=== PATIENT | male | born 1960 ===

== ENCOUNTER 2023-04-07 19:33 | Inpatient (IN) | payer OTHER, SELFPAY ==
--- NOTE | ~2023-04-07 | US_ITS ---
Ultrasound-guided aspiration and core biopsy of one of the lesions in the left lobe of the liver INDICATIONS: Sepsis with multiple small lesions within the liver After informed written consent was obtained an official timeout was performed immediately prior to the procedure. I was personally responsible for the administration of moderate sedation services, all requirements were followed, an independent trained observer was utilized. PROCEDURE: Initial ultrasound surveillance of the liver demonstrates multiple small lesions of mixed echogenicity within the liver measuring less than 2 cm in diameter. The skin was prepped and draped in usual fashion overlying the subxiphoid region. 1% Xylocaine was used for local local anesthetic. Under ultrasound guidance a 18-gauge Temno core biopsy needle was placed into the left lobe of the liver. One of the lesion was biopsied utilizing a core biopsy needle. 3 specimens were obtained. A needle aspirate was obtained and sent for Gram stain, culture and sensitivity. The needle was removed and manual pressure held. The patient tolerated the procedure well. US/US biopsy liver IMPRESSION: ultrasound-guided biopsy of the liver
--- NOTE | ~2023-04-07 | CT_ITS ---
EXAMINATION: CT ABDOMEN AND PELVIS WITH CONTRAST CLINICAL INFORMATION: Pain. Crohn's disease. Concern for colorectal fistula. COMPARISON: None available. TECHNIQUE: Multidetector volumetric images were obtained from the superior aspect of the liver through the pubic symphysis following administration 85 mL of Omnipaque 350 intravenous contrast. Sagittal and coronal reformatted images were obtained on the technologist's workstation. Oral contrast: No This CT examination was performed using dose optimization techniques as appropriate, variously including the following: *Automated exposure control *Adjustment of mA and/or kV according to patient size (this includes techniques or standardized protocols for targeted exams where dose is matched to indication/reason for exam; i.e. extremities or head) *Use of iterative reconstruction technique DLP: 778 mGy-cm FINDINGS: LUNG BASES: The visualized lung bases are unremarkable. LIVER, GALLBLADDER, AND BILIARY TREE: There are scattered nonspecific hepatic hypodensities measuring up to 2 cm right lobe of the liver. The gallbladder is unremarkable with no evidence of radiopaque gallstones, gallbladder wall thickening, or obvious pericholecystic inflammatory changes. PANCREAS: Unremarkable. SPLEEN: Unremarkable. ADRENAL GLANDS: Unremarkable. KIDNEYS AND URETERS: The kidneys are normal in size, shape, and attenuation. No hydronephrosis, hydroureter, or calculi seen. No perinephric stranding. BLADDER: There is a small right sided bladder diverticulum. GASTROINTESTINAL TRACT: There is diffuse diverticulosis without evidence for diverticulitis. There is no evidence for colorectal fistula. ABDOMINAL WALL: No significant hernia is appreciated. LYMPH NODES: Normal. VASCULAR: Unremarkable. PELVIC VISCERA: Unremarkable. OSSEOUS STRUCTURES: There is mild to moderate diffuse thoracolumbar CT/CT abdomen pelvis w IV con disc degenerative change. IMPRESSION: 1. Diffuse diverticulosis without diverticulitis. 2. Multiple nonspecific hepatic hypodensities are not simple cysts. These may represent multiple hemangiomas. Recommend ultrasound assessment. No other significant abnormality identified. Fleischner guidelines were followed.
--- NOTE | ~2023-04-07 | XR_ITS ---
EXAMINATION: XR CHEST CLINICAL INFORMATION: Pneumonia. COMPARISON: None available. TECHNIQUE: Frontal view of the chest was obtained. FINDINGS: Prominent cardiomediastinal silhouette. Diffuse interstitial thickening. No focal airspace opacity, pleural effusion or pneumothorax. No acute osseous findings. The visualized upper abdomen is within normal limits. XR/XR chest 1V IMPRESSION: Nonspecific interstitial prominence that could be seen with small airways disease or atypical/viral infections. Indeterminate prominence of the cardiomediastinal silhouette, if cardiomegaly or pericardial effusion is suspected, consider correlation with bedside echocardiogram.
--- NOTE | ~2023-04-07 | US_ITS ---
EXAMINATION: US ABDOMEN LIMITED CLINICAL INFORMATION: Fever. Abnormal CT scan liver.. COMPARISON: 04/08/2023 CT scan TECHNIQUE: Real-time imaging of the right upper quadrant abdominal viscera. FINDINGS: PANCREAS: Much of the pancreas is obscured overlying bowel gas. Visualized portions of pancreas is unremarkable LIVER: Multiple complex cystic regions are seen throughout the liver the largest measures 1.8 cm in size. More of these regions were identified on the CT scan than are able to be appreciated on the ultrasound. There is background increased hepatic echotexture. No biliary ductal dilatation. GALLBLADDER: Normal. The gallbladder is physiologically distended without evidence of stones, sludge, polyps, wall thickening or pericholecystic fluid. COMMON BILE DUCT: Normal in caliber measuring 0.3 cm in diameter. RIGHT KIDNEY: Normal. No hydronephrosis. No renal calculi or focal parenchymal lesions. The kidney measures 13.5 cm in maximum dimension. FREE FLUID: None. US/US abdomen limited IMPRESSION: Multiple complex cystic regions are seen throughout the liver. Etiology of these are uncertain. More numerous were seen on the CT scan than are able to be appreciated on the ultrasound. Background increased hepatic echotexture suggesting a component of fatty infiltration.
[2023-04-07 20:03] VITALS: BP 146/63; PULSE 84; RESP 18; TEMP 38.2; O2SAT 95; BMI 34.5
--- NOTE | 2023-04-07 20:09 | ED_ITS ---
HPI - General Adult General Chief complaint: Fever Stated complaint: fever for 5 days now Time Seen by Provider: 04/07/23 20:50 Source: patient Mode of arrival: ambulatory Limitations: no limitations History of Present Illness HPI narrative: Patient history of diverticulitis, Crohn disease and hemorrhoids and history of mitral valve prolapse and history of endocarditis years ago from tooth infection comes here for rectal pain with pus discharge and fever for last 5 days. Patient was seen by GI plan to do sigmoidoscopy next week initially patient has pus discharge without any blood from resumed hemorrhoids pus amount has decreased now but still is having the fever on arrival patient temperature was 100.8 was 101.5 at home. Patient also complaining of left lower abdomen pain for last few days Related Data Home Medications Medication Instructions Recorded Confirmed atorvastatin 80 mg tablet 80 mg PO BEDTIME 04/08/23 04/08/23 ezetimibe 10 mg tablet 10 mg PO DAILY 04/08/23 04/08/23 finasteride 5 mg tablet 5 mg PO DAILY 04/08/23 04/08/23 hydrochlorothiazide 12.5 mg tablet 12.5 mg PO DAILY 04/08/23 04/08/23 meloxicam 15 mg tablet 15 mg PO DAILY PRN Back Pain 04/08/23 04/08/23 pantoprazole 40 mg tablet,delayed 40 mg PO DAILY 04/08/23 04/08/23 release valsartan 320 mg tablet 320 mg PO DAILY 04/08/23 04/08/23 Allergies Allergy/AdvReac Type Severity Reaction Status Date / Time Sulfa (Sulfonamide Allergy Rash Verified 04/07/23 20:03 Antibiotics) Review of Systems Review of Systems: Yes all other systems are reviewed and are negative [facility] Past Medical History Medical History (Updated 04/08/23 @ 06:46 by Ginger Cota MD) Crohn's disease Diabetes Hypertension Social History Social History Household Members: Spouse Housing: House Alcohol intake: current Alcohol intake frequency: a few times a month Patient Tobacco Use Status: Never used Tobacco service: No Physical Exam ED Vital Signs: Vital Signs - 24 hr 04/08/23 03:39 Temperature 100.1 F Pulse Rate 88 Respiratory Rate 18 Blood Pressure 137/66 Pulse Oximetry 96 Oxygen Delivery Method Room Air BMI result Body Mass Index 34.5 Appearance: Alert. Oriented X3. No acute distress. Eyes: No pallor/icterus ENT: Pharynx normal. Oral Mucosa moist Neck: Normal inspection. Neck supple. CVS: Normal heart rate and rhythm. Pulses normal. Respiratory: No respiratory distress. Equal air entry bilateral, no wheezing/rales/rhonchi Abdomen: Soft , deep tenderness left lower quadrant Bowel sounds are present, no mass palpable, no CVA tenderness rectal: Small hemorrhoid, status post surgical changes no pus /blood Skin: Skin warm and dry. Normal skin color. Normal skin turgor. Extremities: No lower extremity edema. No calf tenderness Neuro: Oriented X 3. No motor deficit. Course Course Course Narrative: RME: 62 yold male presents to the ED for recurrent fever for a couple of days. patient concerned due to history of endocarditits. labs, UA, and chest xray ordered Medications Administered Generic Name Dose Route Start Last Admin Trade Name Freq PRN Reason Stop Dose Admin Acetaminophen 650 mg 04/08/23 04:30 04/08/23 09:07 Acetaminophen 325 Mg Tablet PO 650 mg Q6H PRN Administration Pain, Mild (Pain Scale 1-3) Atorvastatin Calcium 80 mg 04/08/23 21:00 04/08/23 20:58 Atorvastatin Calcium 80 Mg Tablet PO 80 mg BEDTIME ANITA Administration Ezetimibe 10 mg 04/08/23 09:00 04/08/23 09:07 Ezetimibe 10 Mg Tablet PO 10 mg DAILY ANITA Administration Finasteride 5 mg 04/08/23 09:00 04/08/23 09:07 Finasteride 5 Mg Tablet PO 5 mg DAILY ANITA Administration Hydrochlorothiazide 12.5 mg 04/08/23 09:00 04/08/23 09:07 Hydrochlorothiazide 12.5 Mg Tablet PO 12.5 mg DAILY ANITA Administration Protocol Ceftriaxone Sodium 1 gm/ 50 mls @ 100 mls/hr 04/08/23 04:30 04/08/23 07:17 Sodium Chloride IV Infused Q24H ANITA Infusion Omeprazole 20 mg 04/08/23 09:00 04/08/23 09:08 Omeprazole 20 Mg Capsule.Dr PO 20 mg DAILY@0630 ANITA Administration Sodium Chloride 3 ml 04/08/23 08:00 04/08/23 21:00 0.9 % Sodium Chloride Flush 3 Ml Syringe IVFLUSH 3 ml QSHIFT ANITA Administration Valsartan 320 mg 04/08/23 09:00 04/08/23 09:08 Valsartan 320 Mg Tablet PO 320 mg DAILY ANITA Administration Protocol Discontinued Medications Generic Name Dose Route Start Last Admin Trade Name Mary Jane PRN Reason Stop Dose Admin Acetaminophen 975 mg 04/07/23 20:09 04/07/23 20:41 Acetaminophen 325 Mg Tablet PO 04/07/23 20:10 975 mg ONCE ONE Administration Diatrizoate Meglum/Diatrizoate Sod 30 ml 04/07/23 22:46 04/07/23 22:46 Diatrizoate Meglumine, Sodium 30 Ml Solution PO 04/07/23 22:47 30 ml ONCE ONE Administration Piperacillin Sod/Tazobactam 50 mls @ 100 mls/hr 04/07/23 21:50 04/08/23 00:00 Sod 3.375 gm/ Sodium Chloride IV 04/07/23 22:19 Infused ONCE ONE Infusion Sodium Chloride 1,000 mls @ 999 mls/hr 04/07/23 21:51 04/08/23 00:00 Ns IV 04/07/23 22:51 Infused .Q1H1M ONE Infusion Insulin Human Lispro 0 unit 04/08/23 07:30 04/08/23 17:54 Insulin Lispro 100 Unit/Ml 3 Ml Vial SUBCUT Not Given QIDACHS [facility] Protocol Iohexol 100 ml 04/07/23 22:41 04/07/23 22:42 Iohexol 350 Mg/Ml 100 Ml Infus..Btl IV 04/07/23 22:42 Not Given ONCE ONE Medical Decision Making Medical Decision Making [facility] Narrative: Patient with post discharge from the rectum on exam there was no pus discharge 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 Patient signed out to Dr. Riggs pending final CT scan result patient UA showed wbc's nitrite negative bacteria negative not clear -I discussed the CT scan findings with the patient, is possible that the pus drainage that he is seeing is from hemorrhoids. However, she does have a fever 101.8, and a UTI. -patient received today Zosyn and IV fluids -I discussed the patient with Dr. Cota, patient being admitted Differential Diagnosis Differential Diagnoses: The differential diagnosis associated with the presentation includes Rectal abscess/colo rectal fistula Admission/Observation Consideration of admission/observation: Escalation of care including admission/observation considered Consult Healthcare Provider Management of the patient was discussed with: Hospitalist Lab Data MDM Lab Attestation statement: I reviewed the patient's lab results. 04/07/23 20:29 04/07/23 20:29 Labs: Lab Results 04/07/23 04/07/23 04/07/23 Range/Units 20:29 20:29 20:29 WBC 15.0 H (4.8-10.8) X10*3/uL RBC 4.20 L (4.60-5.80) X10*6/uL Hgb 12.8 L (14.0-18.0) g/dl Hct 37.8 L (42.0-52.0) % MCV 90.0 (80.0-98.0) fL MCH 30.5 (27.0-33.0) pg MCHC 33.9 (31.0-36.0) g/dl RDW 11.3 (11.0-16.0) % Plt Count 262 (160-400) X10*3/uL MPV 9.3 L (9.4-12.4) fL Immature Gran % (Auto) 0.3 (0.0-0.4) % Neut % (Auto) 67.0 (45-73) % Lymph % (Auto) 18.4 L (20-40) % [place] % (Auto) 13.1 H (2-11) % Eos % (Auto) 0.9 (0-4) % Baso % (Auto) 0.3 (0-2) % Lymph # (Auto) 2.8 (1.2-4.9) X10*3/uL [place] # (Auto) 2.0 H (0.1-1.2) X10*3/uL Eos # (Auto) 0.1 (0.0-0.4) X10*3/uL Baso # (Auto) 0.0 (0.0-0.2) X10*3/uL Abs Immat Gran (auto) 0.05 H (0.00-0.03) X10*3/uL Absolute Neuts (auto) 10.1 H (2.0-8.3) x10*3/uL Absolute Nucleated RBC 0.000 (0.0-0.012) X10*3/uL Nucleated RBC % (auto) 0.0 (0.0-0.2) /100WBC Smear Tech's Comments VERIFIED ESR 40 H (0-15) MM/HR Sodium 137 (135-145) mmol/L Potassium 3.5 (3.3-5.1) mmol/L Chloride 104 (96-108) mmol/L Carbon Dioxide 23 (22-29) mmol/L Anion Gap 14 (12-20) BUN 20 H (9-16) mg/dL Creatinine 0.74 (0.5-1.4) mg/dL Estim Creat Clear Calc 115.0 Estimated GFR > 60 Random Glucose 126 H (60-115) mg/dL Lactic Acid (0.5-2.0) mmol/L Calcium 9.0 (8.4-10.2) mg/dL Total Bilirubin 1.3 H (0.0-1.0) mg/dL AST 26 (5-37) U/L ALT 33 (0-40) U/L Alkaline Phosphatase 74 (39-117) U/L C-Reactive Protein 6.27 H (< or = 0.50) mg/dL Total Protein 7.5 (6.5-8.0) g/dL Albumin 3.9 (3.5-5.0) g/dL Urine Color Urine Appearance Urine pH (5.0-9.0) Ur Specific [place] (1.005-1.025) Urine Protein (Neg-Trace) mg/dL Urine Glucose (UA) (Negative) mg/dL Urine Ketones (Negative) mg/dL Urine Blood (Negative) Urine Nitrite (Negative) Ur Leukocyte Esterase (Negative) Urine RBC (0-2) /HPF Urine WBC (0-5) /HPF Ur Squamous Epith Cells (0-2) /HPF Urine Bacteria (None Seen) Hyaline Casts (0-2) /LPF Influenza Type A (PCR) (Negative) Influenza Type B (PCR) (Negative) RSV RNA Qual (PCR) (Negative) SARS-CoV-2 RNA (RT-PCR) (Negative) 04/07/23 04/07/23 04/07/23 Range/Units 20:29 20:29 23:58 WBC (4.8-10.8) X10*3/uL RBC (4.60-5.80) X10*6/uL Hgb (14.0-18.0) g/dl Hct (42.0-52.0) % MCV (80.0-98.0) fL MCH (27.0-33.0) pg MCHC (31.0-36.0) g/dl RDW (11.0-16.0) % Plt Count (160-400) X10*3/uL MPV (9.4-12.4) fL Immature Gran % (Auto) (0.0-0.4) % Neut % (Auto) (45-73) % Lymph % (Auto) (20-40) % [place] % (Auto) (2-11) % Eos % (Auto) (0-4) % Baso % (Auto) (0-2) % Lymph # (Auto) (1.2-4.9) X10*3/uL [place] # (Auto) (0.1-1.2) X10*3/uL Eos # (Auto) (0.0-0.4) X10*3/uL Baso # (Auto) (0.0-0.2) X10*3/uL Abs Immat Gran (auto) (0.00-0.03) X10*3/uL Absolute Neuts (auto) (2.0-8.3) x10*3/uL Absolute Nucleated RBC (0.0-0.012) X10*3/uL Nucleated RBC % (auto) (0.0-0.2) /100WBC Smear Tech's Comments ESR (0-15) MM/HR Sodium (135-145) mmol/L Potassium (3.3-5.1) mmol/L Chloride (96-108) mmol/L Carbon Dioxide (22-29) mmol/L Anion Gap (12-20) BUN (9-16) mg/dL Creatinine (0.5-1.4) mg/dL Estim Creat Clear Calc Estimated GFR Random Glucose (60-115) mg/dL Lactic Acid 0.8 (0.5-2.0) mmol/L Calcium (8.4-10.2) mg/dL Total Bilirubin (0.0-1.0) mg/dL AST (5-37) U/L ALT (0-40) U/L Alkaline Phosphatase (39-117) U/L C-Reactive Protein (< or = 0.50) mg/dL Total Protein (6.5-8.0) g/dL Albumin (3.5-5.0) g/dL Urine Color Yellow Urine Appearance Clear Urine pH 5.5 (5.0-9.0) Ur Specific [place] 1.020 (1.005-1.025) Urine Protein Negative (Neg-Trace) mg/dL Urine Glucose (UA) Negative (Negative) mg/dL Urine Ketones Negative (Negative) mg/dL Urine Blood Small (1+) H (Negative) Urine Nitrite Negative (Negative) Ur Leukocyte Esterase Moderate (2+) H (Negative) Urine RBC 0-2 (0-2) /HPF Urine WBC 21-50 H (0-5) /HPF Ur Squamous Epith Cells 0-2 (0-2) /HPF Urine Bacteria None Seen (None Seen) Hyaline Casts 0-2 (0-2) /LPF Influenza Type A (PCR) NEGATIVE (Negative) Influenza Type B (PCR) NEGATIVE (Negative) RSV RNA Qual (PCR) NEGATIVE (Negative) SARS-CoV-2 RNA (RT-PCR) NEGATIVE (Negative) Critical Care Time Critical Care Time Critical Care Time: Yes Total Critical Care Time: 45 Attestation: I have personally provided critical care time. Time includes review of lab data, radiology results, discussion with consultants, and monitoring for potential decompensation. Intervention performed as documented. Discharge Plan Discharge Clinical Impression: Crohn's disease, Acute UTI, Fever Patient Disposition: Admitted As Inpatient Discharge Date/Time: 04/08/23 20:59
[2023-04-07] MEDS: Acetaminophen 325 MG TABLET 975 MG PO (20:41)
[2023-04-07 20:42] LABS: Basophils Percent Auto 0.3 % (0-2); Eosinophils Absolute Auto 0.1 X10*3/uL (0.0-0.4); Eosinophils Percent Auto 0.9 % (0-4); Hematocrit 37.8 % (42.0-52.0); Hemoglobin 12.8 g/dl (14.0-18.0); Imm Gran Abs Auto 0.05 X10*3/uL (0.00-0.03); Imm Gran Pct Auto 0.3 % (0.0-0.4); Lymphocytes Absolute Auto 2.8 X10*3/uL (1.2-4.9); Lymphocytes Percent Auto 18.4 % (20-40); MANUAL DIFF FLAG SCAN; Mean Corpuscular HGB Conc 33.9 g/dl (31.0-36.0); Mean Corpuscular Hemoglobin 30.5 pg (27.0-33.0); Mean Platelet Volume 9.3 fL (9.4-12.4); Monocytes Percent Auto 13.1 % (2-11); Neutrophils Absolute Auto 10.1 x10*3/uL (2.0-8.3); Platelet Count 262 X10*3/uL (160-400); Red Cell Distribution Width 11.3 % (11.0-16.0); SCAN SMEAR FLAG 1
[2023-04-07 21:04] LABS: Lactic Acid 0.8 mmol/L (0.5-2.0)
[2023-04-07 21:12] LABS: Alanine Aminotransferase 33 U/L (0-40); Albumin Level 3.9 g/dL (3.5-5.0); Alkaline Phosphatase 74 U/L (39-117); Anion Gap 14 (12-20); Aspartate Amino Transferase 26 U/L (5-37); Bilirubin Total 1.3 mg/dL (0.0-1.0); Blood Urea Nitrogen 20 mg/dL (9-16); C Reactive Protein 6.27 mg/dL (< or = 0.50); Carbon Dioxide 23 mmol/L (22-29); Chloride 104 mmol/L (96-108); Estimated Glomerular Filt Rate > 60; Glucose Random 126 mg/dL (60-115); Potassium 3.5 mmol/L (3.3-5.1); Sodium 137 mmol/L (135-145); Total Protein 7.5 g/dL (6.5-8.0)
[2023-04-07 21:34] LABS: Influenza A PCR NEGATIVE (Negative); Influenza B PCR NEGATIVE (Negative); Resp Syncy Virus RNA Qual PCR NEGATIVE (Negative); SARS COV2 PCR INHOUSE NEGATIVE (Negative)
[2023-04-07 21:40] LABS: SLIDE REVIEW VERIFIED
[2023-04-07 21:56] LABS: Erythrocyte Sedimentation Rate 40 MM/HR (0-15)
[2023-04-07 22:00] VITALS: BP 143/72; PULSE 75; RESP 20; TEMP 37.7; O2SAT 96
[2023-04-07] MEDS: Piperacillin Sodium/Tazobactam 3.375 GM in 0.9 % Sodium Chloride 50 ML IV (22:03)
[2023-04-07] MEDS: 0.9 % Sodium Chloride 1,000 ML 999 ML IV (22:04)
[2023-04-07] MEDS: Diatrizoate Meglumine, Sodium 30 ML SOLUTION PO (22:46)
[2023-04-08 00:09] LABS: Appearance Urine Clear; Color Urine Yellow; Glucose Urine UA Negative (Negative); Leukocyte Esterase Urine Moderate (2+) (Negative); Nitrite Urine Negative (Negative); PH 5.5 (5.0-9.0); UMIC TRIGGER UACC YES; Urine Blood Small (1+) (Negative); Urine Ketones Negative (Negative); Urine Protein Negative (Neg-Trace)
[2023-04-08 00:17] LABS: Bacteria Urine None Seen (None Seen); Hyaline Casts Urine 0-2 /LPF (0-2); RBC Urine 0-2 /HPF (0-2); Squamous Epithelial Cell Urine 0-2 /HPF (0-2); UACC Culture Trigger YES; WBC Urine 21-50 /HPF (0-5)
[2023-04-08 03:39] VITALS: BP 137/66; PULSE 88; RESP 18; TEMP 37.8; O2SAT 96
--- NOTE | 2023-04-08 04:36 | PC.NURSE ---
provider into discuss plan of care, pt oob to bathroom, Will continue to monitor.
--- OUTSIDE RECORDS SUMMARY | 2023-04-08 04:39 | XMS_ITS | Continuity of Care Document ---
Author Name Unknown Organization [facility] Address [address] [place] [id number] Care Team Providers Care Chemical Process Equipment Operator Name Role Phone Jovani Doshi MD Primary Care Physician Un available Encounter [facility] Date(s): 01/25/23 - 02/24/23 [facility] [address] [place] [id number] [place] Allergies, Adverse Reactions, Alerts Substance Reaction Severity Status sulfa drugs Hives Active Medications Diovan 160 mg oral tablet 1 tablet, By Mouth, Daily, # 30 tablet, 0 Refills Start Date: 06/22/09 Stop Date: 07/22/09 Status: Ordered finasteride 5 mg oral tablet 1 tablet, By Mouth, Daily, # 30 tablet, 0 Refills Start Date: 06/22/09 Status: Ordered penicillin G potassium [id number] u/50 ml intravenous solution 50 mL, IVPB, Every 4 hours, 0 Refills, 26, days Start Date: 06/24/09 Stop Date: 06/30/09 Status: Ordered Zocor 10 mg oral tablet 1 tablet, By Mouth, Daily at bedtime, # 30 tablet, 0 Refills Start Date: 06/22/09 Stop Date: 07/22/09 Status: Ordered Patient Care team information Care Team Personnel Name: Jovani Doshi MD Position: S Physician - Primary Care Member Role: PCP Care Team Related Persons Name: GENESIS STEINER Address: home [address] [place] [id number]
[2023-04-08] MEDS: cefTRIAXone sodium 1 GM in 0.9 % Sodium Chloride 50 ML IV (04:51)
--- NOTE | 2023-04-08 04:52 | PC.NURSE ---
Pt enters my care. Pt is alert and orientated x4. Pt denied any chest pain with ambulation. VSS- will continue to monitor
--- NOTE | 2023-04-08 06:41 | P.HPHOSP_ITS ---
History of Present Illness Date of Service: 04/08/23 Chief Complaint: fever 62-year-old male past medical history of hypertension, diabetes, Crohn's disease under control comes into the hospital complaints of fever for the past 3 days. Patient reports urinary frequency, he also reports a viscous discharge from his rectum with no pain. Denies any anal intercourse, reports the fever up to 103 for the past 3 days, has no chest pain, no shortness of breath, no cough, no abdominal pain nausea or vomiting, no diarrhea constipation, no lower extremity edema. Reports that he was seen by history I and P on , was told that his discharge is likely from a burst hemorrhoid although he denies having bright red blood per rectum On arrival to the ED patient found to have a temperature of 100.8 Labs are significant for WBC count of 15, hemoglobin of 12.8, hematocrit 37.8, CRP of 6.2 UA positive for leukocyte Estrace, and WBC Patient started on antibiotics and will be admitted for further management Review of Systems Review of Systems: Yes all other systems are reviewed and are negative [facility] Medical History (Updated 04/08/23 @ 06:46 by Ginger Cota MD) Crohn's disease Diabetes Hypertension Social History Alcohol intake: current Alcohol intake frequency: a few times a month Smoked in Last 30 Days: No Use of substances other than those prescribed or required for medical reasons: No Advance Directives: No Advance Directives Information Provided: Yes Meds Allergies Allergy/AdvReac Type Severity Reaction Status Date / Time Sulfa (Sulfonamide Allergy Rash Verified 04/07/23 20:03 Antibiotics) Active Medications: Current Medications Acetaminophen (Acetaminophen 325 Mg Tablet) 650 mg PO Q6H PRN PRN Reason: Pain, Mild (Pain Scale 1-3) Docusate Sodium (Docusate Sodium 100 Mg Capsule) 100 mg PO DAILY PRN PRN Reason: Constipation Ceftriaxone Sodium 1 gm/ (Sodium Chloride) 50 mls @ 100 mls/hr IV Q24H ANITA Last Admin: 04/08/23 04:51 Dose: 100 mls/hr Ondansetron HCl (Ondansetron Hcl 4 Mg/2 Ml Vial) 4 mg IVPUSH Q8H PRN PRN Reason: Nausea and Vomiting Sodium Chloride (0.9 % Sodium Chloride Flush 3 Ml Syringe) 3 ml IVFLUSH QSHIFT [facility] Home Medications Medication Instructions Recorded Confirmed Last Taken Type atorvastatin 80 mg tablet 80 mg PO BEDTIME 04/08/23 04/08/23 04/07/23 History ezetimibe 10 mg tablet 10 mg PO DAILY 04/08/23 04/08/23 04/07/23 History finasteride 5 mg tablet 5 mg PO DAILY 04/08/23 04/08/23 04/07/23 History hydrochlorothiazide 12.5 mg tablet 12.5 mg PO DAILY 04/08/23 04/08/23 04/07/23 History meloxicam 15 mg tablet 15 mg PO DAILY PRN Back Pain 04/08/23 04/08/23 04/07/23 History pantoprazole 40 mg tablet,delayed 40 mg PO DAILY 04/08/23 04/08/23 04/07/23 History release valsartan 320 mg tablet 320 mg PO DAILY 04/08/23 04/08/23 04/07/23 History Physical Exam Vital Signs and Narrative: Vital Signs: Last Vital Signs Temp 100.1 F 04/08/23 03:39 Pulse 88 04/08/23 03:39 Resp 18 04/08/23 03:39 BP 137/66 04/08/23 03:39 Pulse Ox 96 04/08/23 03:39 O2 Del Method Room Air 04/08/23 03:39 BMI result Body Mass Index 34.5 Const: General: cooperative and no acute distress Orientation/consciousness: patient oriented x3 Eyes: General: appearance normal, both eyes and all related structures Pupils: Equal, round and reactive pupils present Resp: Effort & Inspection: normal respiratory effort Auscultation: clear to auscultation bilaterally Cardio: Rate: regular rate Rhythm: regular rhythm GI: Other: Abdomen is soft, nontender rebound or guarding Palpation (GI): Soft to palpation Auscultation: normal bowel sounds Skin: General skin exam: no rashes or lesions noted Neuro: General: patient oriented x3 Cranial nerves: Yes Equal, round and reactive pupils present Cognition (Neuro): normal cognition Extrem: General: Yes normal to inspection and Yes no pedal edema Results Labs 04/07/23 20:29 04/07/23 20:29 Labs: Laboratory Results - last 24 hr 04/07/23 04/07/23 04/07/23 20:29 20:29 20:29 MCV 90.0 MCH 30.5 MCHC 33.9 RDW 11.3 Plt Count 262 MPV 9.3 L Immature Gran % (Auto) 0.3 Neut % (Auto) 67.0 Lymph % (Auto) 18.4 L Thayer % (Auto) 13.1 H Eos % (Auto) 0.9 Baso % (Auto) 0.3 Lymph # (Auto) 2.8 Thayer # (Auto) 2.0 H Eos # (Auto) 0.1 Baso # (Auto) 0.0 Abs Immat Gran (auto) 0.05 H Absolute Neuts (auto) 10.1 H Absolute Nucleated RBC 0.000 Nucleated RBC % (auto) 0.0 Smear Tech's Comments VERIFIED ESR 40 H Anion Gap 14 Estim Creat Clear Calc 115.0 Estimated GFR > 60 Random Glucose 126 H Lactic Acid Calcium 9.0 Total Bilirubin 1.3 H AST 26 ALT 33 Alkaline Phosphatase 74 C-Reactive Protein 6.27 H Total Protein 7.5 Albumin 3.9 Urine Color Urine Appearance Urine pH Ur Specific [place] Urine Protein Urine Glucose (UA) Urine Ketones Urine Blood Urine Nitrite Ur Leukocyte Esterase Urine RBC Urine WBC Ur Squamous Epith Cells Urine Bacteria Hyaline Casts Influenza Type A (PCR) Influenza Type B (PCR) RSV RNA Qual (PCR) SARS-CoV-2 RNA (RT-PCR) 04/07/23 04/07/23 04/07/23 20:29 20:29 23:58 MCV MCH MCHC RDW Plt Count MPV Immature Gran % (Auto) Neut % (Auto) Lymph % (Auto) Thayer % (Auto) Eos % (Auto) Baso % (Auto) Lymph # (Auto) Thayer # (Auto) Eos # (Auto) Baso # (Auto) Abs Immat Gran (auto) Absolute Neuts (auto) Absolute Nucleated RBC Nucleated RBC % (auto) Smear Tech's Comments ESR Anion Gap Estim Creat Clear Calc Estimated GFR Random Glucose Lactic Acid 0.8 Calcium Total Bilirubin AST ALT Alkaline Phosphatase C-Reactive Protein Total Protein Albumin Urine Color Yellow Urine Appearance Clear Urine pH 5.5 Ur Specific [place] 1.020 Urine Protein Negative Urine Glucose (UA) Negative Urine Ketones Negative Urine Blood Small (1+) H Urine Nitrite Negative Ur Leukocyte Esterase Moderate (2+) H Urine RBC 0-2 Urine WBC 21-50 H Ur Squamous Epith Cells 0-2 Urine Bacteria None Seen Hyaline Casts 0-2 Influenza Type A (PCR) NEGATIVE Influenza Type B (PCR) NEGATIVE RSV RNA Qual (PCR) NEGATIVE SARS-CoV-2 RNA (RT-PCR) NEGATIVE Imaging Radiologist's Impressions: Impressions Chest X-Ray 04/07/23 21:00 IMPRESSION: Nonspecific interstitial prominence that could be seen with small airways disease or atypical/viral infections. Indeterminate prominence of the cardiomediastinal silhouette, if cardiomegaly or pericardial effusion is suspected, consider correlation with bedside echocardiogram. Abdomen/Pelvis CT 04/08/23 01:14 disc degenerative change. IMPRESSION: 1. Diffuse diverticulosis without diverticulitis. 2. Multiple nonspecific hepatic hypodensities are not simple cysts. These may represent multiple hemangiomas. Recommend ultrasound assessment. No other significant abnormality identified. Fleischner guidelines were followed. Assessment and Plan (1) Acute UTI: Status: Acute (2) Sepsis: Qualifiers: Sepsis type: sepsis due to unspecified organism Sepsis acute organ dysfunction status: without acute organ dysfunction Qualified Code(s): A41.9 - Sepsis, unspecified organism Status: Acute (3) Crohn's disease: Status: Inactive (4) Rectal discharge: Status: Acute Plan 62-year-old male past medical history of Crohn's disease, hypertension, comes into the hospital with complaints of fever found to have sepsis # sepsis - secondary to UTI - has leukocytosis, febrile - abdominal pelvic CT negative, no respiratory symptoms - will treat with IV antibiotics - follow cultures # acute UTI - positive UA, has urinary frequency - will treat with IV antibiotics - follow cultures # rectal discharge - reports of viscous discharge from the rectum for several days - GI consulted for possible limited sigmoidoscopy given his history of Crohn's disease - given steroids in the ED, at this time will hold off as patient has no flare # GERD - continue PPI # history of hypertension - stable - continue antihypertensives DVT prophylaxis: Early ambulation Time Spent With Patient Time: Total time managing care of this patient today ____ minutes. Quality Stroke Does the patient have a stroke diagnosis?: No VTE Prior VTE?: No VTE Risk Level:: Medical - low VTE Device Contraindication: Treatment Not Indicated VTE Drug Contraindication: Treatment Not Indicated
[2023-04-08 07:16] LABS: Basophils Absolute Auto 0.1 X10*3/uL (0.0-0.2); Basophils Percent Auto 0.3 % (0-2); Eosinophils Percent Auto 0.3 % (0-4); Hematocrit 35.6 % (42.0-52.0); Imm Gran Abs Auto 0.06 X10*3/uL (0.00-0.03); Imm Gran Pct Auto 0.4 % (0.0-0.4); Lymphocytes Absolute Auto 1.7 X10*3/uL (1.2-4.9); Lymphocytes Percent Auto 11.5 % (20-40); MANUAL DIFF FLAG SCAN; Mean Corpuscular HGB Conc 33.7 g/dl (31.0-36.0); Mean Corpuscular Hemoglobin 30.5 pg (27.0-33.0); Mean Corpuscular Volume 90.6 fL (80.0-98.0); Mean Platelet Volume 9.2 fL (9.4-12.4); Monocytes Absolute Auto 2.1 X10*3/uL (0.1-1.2); Monocytes Percent Auto 13.8 % (2-11); Neutrophils Percent Auto 73.7 % (45-73); Platelet Count 237 X10*3/uL (160-400); Red Blood Count 3.93 X10*6/uL (4.60-5.80); Red Cell Distribution Width 11.3 % (11.0-16.0); SCAN SMEAR FLAG 1
[2023-04-08 07:19] VITALS: BP 118/47; PULSE 86; RESP 20; TEMP 37.9; O2SAT 96
[2023-04-08 07:20] LABS: Glucose, Whole Blood 136 mg/dL (60-115)
--- NOTE | 2023-04-08 07:20 | PHA.MEDREC ---
Pharmacy Consult ? Medication Reconciliation Pharmacy has reviewed the medication reconciliation done by RN.
[2023-04-08 08:03] LABS: SLIDE REVIEW VERIFIED
--- NOTE | 2023-04-08 08:18 | PM.EVENT ---
Event Note Date of Service: 04/08/23 Event Note: 62-year-old male past medical history of Crohn's disease, hypertension, comes into the hospital with complaints of fever found to have sepsis Sepsis secondary to UTI leukocytosis, febrile abdominal pelvic CT negative, no respiratory symptoms continue Rocephin follow cultures Rectal discharge. resolved reports of viscous discharge from the rectum for several days GI consulted given steroids in the ED, will hold off any further steroids GERD continue PPI history of hypertension stable continue antihypertensives DVT prophylaxis:? Early ambulation attending Dr. Pretty full code continued hospital stay for tx of sepsis and uti requiring IV abx Time Spent With Patient Time: Total time managing care of this patient today ____ minutes.
[2023-04-08] MEDS: Ezetimibe 10 MG TABLET PO (09:07)
[2023-04-08] MEDS: Finasteride 5 MG TABLET PO (09:07)
[2023-04-08] MEDS: Acetaminophen 325 MG TABLET 650 MG PO (09:07)
[2023-04-08] MEDS: hydroCHLOROthiazide 12.5 MG TABLET PO (09:07)
[2023-04-08] MEDS: 0.9 % Sodium Chloride Flush 3 ML SYRINGE IVFLUSH ×2 (09:08→21:00)
[2023-04-08] MEDS: Omeprazole 20 MG CAPSULE.DR PO (09:08)
[2023-04-08] MEDS: Valsartan 320 MG TABLET PO (09:08)
[2023-04-08 09:10] VITALS: BP 131/50; PULSE 90; RESP 16
[2023-04-08 09:13] LABS: Anion Gap 13 (12-20); Blood Urea Nitrogen 16 mg/dL (9-16); Calcium 8.7 mg/dL (8.4-10.2); Carbon Dioxide 24 mmol/L (22-29); Chloride 103 mmol/L (96-108); Creatinine Clr Calc Pharmacy 96.7; Estimated Glomerular Filt Rate > 60; Glucose Random 133 mg/dL (60-115); Potassium 3.6 mmol/L (3.3-5.1); Sodium 136 mmol/L (135-145)
--- NOTE | 2023-04-08 09:49 | MHC.CM.PN ---
This va underwriter met with patient for CM assessment. No services prior to hospitalization, independent, currently employeed. HCP copy requested. D/C plan home no services- family to transport. CM will follow for any changes in d/c planning needs.
[2023-04-08 12:39] VITALS: TEMP 37.2
[2023-04-08 13:40] LABS: Glucose, Whole Blood 119 mg/dL (60-115)
--- NOTE | 2023-04-08 15:23 | PM.EVENT ---
Event Note Date of Service: 04/08/23 Event Note: GI Consult-Full note dictated History via patient and EMR Imp: 62 yo male with a longstanding history of reported Crohn's colitis that has been stable for decades without any meds presenting with a self-described history of a spontaneous drainage of a perianal abscess last week followed by persistent fevers, leukocytosis, elevated ESR and CRP, apparent UTI, and an abnormal CT of his liver. His PMH is notable for a previous endocarditis and valvular heart disease in relation to a dental procedure about 10 years ago. His exam is unremarkable, including a negative exam of the perianal area. The only significant finding is a loud systolic murmur that he says is chronic due to the previous endocarditis. His CT scan describes multiple liver lesions not c/w cysts, that the radiologist recommends an U/S for further evaluation. The patient denies any known liver disease in himself. He has had some loose stools today. Diff dx: R/O sepsis with bacteremia...R/O hepatic abscesses, recurrent endocarditis, urosepsis. He doesn't have any symptoms nor signs of active perianal infection, abdominal findings, nor active Crohn's at this time. Rec: Liver U/S today, check cultures, check stool specimens, and F/U labs in AM. I don't think a Flex sig is needed nor would it be helpful at this time. He may need an Echocardiogram/AUBREY and/or ID consult. Try to get records of any outside abdominal imaging for comparison. D/W patient in detail. He is comfortable with this plan. Thanks Time Spent With Patient Time: Total time managing care of this patient today ____ minutes.
[2023-04-08 16:57] LABS: Glucose, Whole Blood 133 mg/dL (60-115)
--- NOTE | 2023-04-08 19:13 | PC.NURSE ---
Assumed care at 17:00. Patient alert and oriented x4. Ambulates with steady gait. C.diff stool is ordered, patient aware, provided with materials to supply sample, moved to private room, educated about precautions. Patient denies history of diabetes, discussed with STORE COORDINATOR, and diet changed to regular diet per STORE COORDINATOR, and Lispro D/C'd per STORE COORDINATOR as well as PRN dextrose orders.
[2023-04-08 20:36] VITALS: BP 133/61; PULSE 71; RESP 17; TEMP 36.9; O2SAT 95
[2023-04-08] MEDS: Atorvastatin Calcium 80 MG TABLET PO (20:58)
[2023-04-08 22:42] VITALS: BMI 33.7
[2023-04-08 23:39] VITALS: BP 104/56; PULSE 72; RESP 20; TEMP 37.2; O2SAT 96
[2023-04-09] VITALS (9 sets, daily range): BP systolic 98–150; BP diastolic 55–70; PULSE 63–85; RESP 14–20; TEMP 36.4–38.3; O2SAT 92–96
--- NOTE | 2023-04-09 00:19 | PM.EVENT ---
Event Note Date of Service: 04/09/23 Event Note: GI Followup Results of U/S noted. I would recommend U/S drainage of one of the suspicious areas on the U/S to definitively assess for hepatic abscess. I placed orders for that. Thanks Time Spent With Patient Time: Total time managing care of this patient today ____ minutes.
--- NOTE | 2023-04-09 01:23 | CONS_ITS ---
DATE OF SERVICE: 04/08/2023 REASON FOR CONSULTATION: History of Crohn's disease, presumed recent perianal abscess and drainage, and abnormal CT scan of liver. HISTORY OF PRESENT ILLNESS: This has been obtained from the patient and the medical record. The patient is a 62-year-old male who describes an approximately 30 or 40 year history of Crohn's colitis that has been very stable for many years. He describes initial treatment many years ago with prednisone and other experimental drugs. For the past many, many years, he reports he has not been on any specific treatment. He is followed by the [facility] and most recently has been seeing Dr. Leigh. He describes a colonoscopy with Dr. Leigh about 6 months ago that was normal other than the report of hemorrhoids. He has not been on any specific medication for Crohn's disease for many years. He does describe a distant history of a perianal fistula or abscess that was drained and treated with antibiotics. The patient describes a previous history of endocarditis with some mitral valve damage in relation to a dental procedure about 10 years ago. This was treated with a long course of IV antibiotics. The patient was otherwise in his usual state of good health without any particular GI symptoms up until the middle of last week when he developed the acute onset of some rectal pain, particularly when he was sitting. He felt something pop, which was then followed by some drainage of purulent material. The following day, he went to his office services representative office in [place] and was seen by the nurse practitioner who examined him and advised him that there did not appear to be any abnormality such as an abscess or any sign of infection in general. At that point, his pain was actually feeling much better and she did not start him on any antibiotics. However, since that time, he has had an intermittent fever up to as high as 102. He was feeling some fatigue and some anorexia. He did not have any abdominal pain and did not have any further rectal pain. He reports that the mucousy and purulent rectal discharge stopped after about 48 hours and he has not had any in about 2 days now. He has had no further rectal pain. He denies any abdominal pain. He denies any nausea nor vomiting. He has had some loose stools today, but that has not been the case prior to today. He has not been using any antibiotics nor NSAIDs. He has had no travel nor ill contacts. He denies any family history of inflammatory bowel disease nor colorectal cancer. He denies any particular urinary symptoms such as dysuria, hematuria, nor any feculent appearing urine. He denies any symptoms of pneumaturia. He denies any known history of liver disease in himself nor family members. He denies any jaundice. His workup in the ER revealed a fever as high as 100.8 last evening. A urinalysis seems to indicate a UTI with some wbc's and positive leukocyte esterase, although no bacteria was seen. A urine culture is pending. Blood cultures are pending. He did have a CT scan of the abdomen and pelvis early this morning that describes some abnormalities in the liver, which were felt to represent nonspecific hypodensities in the liver but which are not felt to be simple cysts and are thought to be account executive sales representative of possible hemangiomas. MEDICATIONS: At home, atorvastatin, ezetimibe, finasteride, hydrochlorothiazide, pantoprazole, and valsartan. He takes meloxicam p.r.n. but not regularly. He usually uses Tylenol. Medications here in the hospital include atorvastatin, IV ceftriaxone, Zetia, Proscar, hydrochlorothiazide, insulin p.r.n., omeprazole, Zofran p.r.n., and Diovan. PAST MEDICAL HISTORY: Crohn's colitis as above. Hypertension. Hyperlipidemia. Gastroesophageal reflux. He reports being told of a hiatal hernia. Enlarged prostate. He denies history of [place], stroke, lung disease, nor renal disease. He has diet-controlled diabetes. Endocarditis with mitral valve disease PAST SURGICAL HISTORY: Bilateral inguinal hernia surgery. He has also had the above-mentioned drainage of what sounds like a perianal abscess in the past. SOCIAL HISTORY: He is an manager field services. He is . He does not smoke. He does not use any significant amounts of alcohol. FAMILY HISTORY: Noncontributory. REVIEW OF SYSTEMS: CONSTITUTIONAL: Prior to the past few days, he had been feeling well with good energy, good appetite. SKIN: No rash. No pruritus. HEENT: Negative. CARDIAC: No chest pain. PULMONARY: No cough or hemoptysis. GI: As above. URINARY: As above. NEUROLOGIC: No headache or seizures. PHYSICAL EXAMINATION: GENERAL: The patient is a pleasant, alert, comfortable-appearing male. VITAL SIGNS: His most recent temperature is 98.9. SKIN: Warm and dry. Anicteric sclerae. Moist mucous membranes. NECK: Supple without lymphadenopathy. CHEST: Clear. CARDIAC: Normal S1, S2 with a loud systolic murmur consistent with his known history of previous endocarditis and mitral valve disease. ABDOMEN: Soft. Normal bowel sounds. Nontender without organomegaly or mass. EXTREMITIES: Had edema. NEUROLOGICAL: Alert and oriented. LABORATORY DATA: As above. White blood cell count was 15,000 last evening and 15,000 this morning. Hemoglobin 12.0, MCV 90, platelets 237,000. Differential shows 74% neutrophils. Sedimentation rate is 40. Normal electrolytes, BUN, and creatinine. LFTs normal except for total bilirubin 1.3. C-reactive protein is 6.3. Albumin 3.9. Urinalysis is above with 1+ blood, 2+ leukocyte esterase, 21-50 wbc's and no bacteria. Swabs for influenza, RSV, and COVID are negative. His chest x-ray describes some nonspecific interstitial prominence that could be seen with small airways disease or atypical infections, but this seemed to be quite nonspecific. His CT scan of the abdomen describes scattered nonspecific liver hypodensities measuring up to 2 cm in size in the right lobe of the liver. There was no sign of gallbladder disease nor biliary disease. Pancreas, spleen, and kidneys appeared normal. The bladder appeared normal other than a bladder diverticulum on the right side. Diffuse diverticulosis was noted but without diverticulitis nor any evidence of a fistula in the GI tract. Of note, a rectal examination did not reveal any active perianal disease. There appeared to be a small scar from his history of a previous draining procedure, but there is no sign of any swelling, fluctuance, erythema, drainage, nor any tenderness whatsoever. Digital exam was not performed. IMPRESSION: Given the patient's clinical history, it does sound like he had a spontaneous drainage of a perianal abscess in the middle of last week with a subsequent persistent intermittent fever. His symptoms do not sound consistent with any type of active Crohn's disease at this time and therefore I do not think a flexible sigmoidoscopy would be of any help in determining any etiology of the symptoms. He does not show any sign of active perianal disease either, but again by his history it sounds like he had a perianal abscess that spontaneously drained. His abdominal exam is benign and the CT scan does not show any sign of active GI pathology. However, given his clinical history of the recent presumed perianal abscess that spontaneously drained, his ongoing fever, a leukocytosis, and the abnormality seen on the CT scan of his liver, I would be concerned about possible hepatic abscesses. It does appear that he may have a UTI, but he is not having any significant symptoms from that and I am not sure if that would be enough to be causing his high sedimentation rate, high C-reactive protein, and elevated white blood cell count. At this point, I would continue his antibiotics and await the results of his blood and urine cultures. I have ordered an ultrasound primarily of the liver to further assess the lesions in the liver and to see whether or not they see any evidence of hepatic abscess that may need drainage. I have also ordered stool specimens to rule out any type of enteric infection given the underlying Crohn's disease and the report of some diarrhea today, although again that does not seem particularly impressive. I have ordered labs for the morning including a liver profile, and PT with INR. He may need an infectious disease consultation depending upon the final results of all of his cultures. It would be helpful to obtain any outside imaging studies of his liver to see if the lesions they are seeing on today's films were present in the past or if they are new. This has all been discussed in detail with the patient and he is comfortable with the plan. MD MARILYN Amaya/ANUM / [id number] [email or web address]
[2023-04-09] MEDS: cefTRIAXone sodium 1 GM in 0.9 % Sodium Chloride 50 ML IV (05:48)
[2023-04-09] MEDS: Omeprazole 20 MG CAPSULE.DR PO (05:48)
--- NOTE | 2023-04-09 07:00 | CA_ITS ---
Transthoracic Echocardiogram Patient (Last, First, Middle): Bobby Dalton R Gender: Male Date of : 1960 Age: 62 Procedure Date: 04/09/2023 Procedure Type: Transthoracic Echocardiogram Location: [facility] [place] Height: 170.18 cm Weight: 97.52 kg BSA: 2.09 m2 Heart Rate: 83 bpm BP: 132 / 62 mmHg Auto Glass Installer: REGIS Referring MD: Marietta Santos NP Salesperson Floor Coverings: Edward Anne MD Symptoms: fever, previous hx of endocarditis Study Quality: Adequate w contrast ECG Rhythm: Sinus Conclusions: - 1. Normal LV systolic function with mild LVH 2. Left atrium is severely dilated next 3. Thickened mitral valve leaflet without clear evidence of vegetation, unable to quantify mitral regurgitation 4. No other clear evidence of vegetations on this study although suboptimal to detect for vegetations 5. Normal RV systolic pressure 6. No gross pericardial effusion Findings Procedure Information Contrast agent, definity, is being given per protocol without apparent complications. Left Ventricle Normal left ventricular size and systolic function. There is mildly increased left ventricular wall thickness. The visually estimated ejection fraction is between 65-70%. Spectral Doppler is indicative of a normal filling pattern. Right Ventricle Normal right ventricular cavity size. There is normal right ventricular systolic function. Atria The left atrium is severely dilated. Interatrial shunt cannot be excluded. The right atrium is normal in size. Aortic Valve The aortic valve structure and function is likely normal. There is no aortic valve stenosis. There is no aortic valve regurgitation. Mitral Valve There is mild anterior and moderate posterior mitral leaflet thickening. There is bowing of the posterior mitral leaflet without obvious prolapse. There is no mitral valve stenosis. Pulmonic Valve The pulmonic valve was not well visualized. Tricuspid Valve The tricuspid valve was not well visualized. Tricuspid regurgitation envelope is inadequate for calculation of right ventricular systolic pressure. Normal right atrial pressure. Great Vessels The pulmonary artery was not well visualized. There is no dilatation of the ascending aorta measuring 3.40 cm. Venous The inferior vena cava is normal in size and collapses greater than 50% with inspiration. Pericardium/Pleural There is no evidence of pericardial effusion. Prior Study Comparison No prior study available for comparison. Recommendations, Care & Conclusions Consider a AUBREY if clinically appropriate. Measurements 2D Linear Measurements IVSd: 1.20 0.6-0.9/0.6-1.0 cm LVIDd: 5.90 3.9-5.3/4.2-5.9 cm LVIDd Index: 2.82 2.4-3.2/2.2-3.1 cm/m2 LVIDs: 3.90 2.0-3.6 cm LVPWd: 1.20 0.7-1.1 cm LA Diam: 4.80 2.7-3.8/3.0-4.0 cm LAIDs Index: 2.30 1.5-2.3 cm/m2 LV Mass: 381.06 67-162/88-224 g LV Mass Index: 182.33 43-95/49-115 g/m2 LVOT Diam: 2.20 3.0+(-)1.3 cm 2D Systolic Function EF 4C: 62.60 >55% EF 2C: 69.20 >55% EF BiP: 67.60 >55% Mitral Valve MV Pk E: 1.11 MV PK A: 0.78 MV Decel Time: 157.00 E/A: 1.40 E'Lateral: 15.80 E'Medial: 10.30 E/E' Med: 10.80 E/E' Lat: 7.00 PHT: 46.00 MVA PHT: 4.78 Decel [place]: 7.11 Aortic Valve AoV Pk Be: 1.42 AoV Pk Grad: 8.00 MOLINA: 3.07 LVOT LVOT Pk Be: 1.17 LVOT Mn Be: 0.91 LVOT VTI: 0.24 LVOT Pk Grad: 5.00 LVOT Mn Grad: 4.00 LVOT Diam: 2.20 LVOT Area: 3.80 Diastolic Function MV Pk E: 1.11 MV Pk A: 0.78 E/A: 1.40 E'Medial: 10.30 E/E' Med: 10.80 E' Laterial: 15.80 E/E' Lat: 7.00 Right Ventricle TAPSE (mm): 19.30 TVS' Be: 12.80 Tricuspid Valve RA Press: 3.00 Great Vessels Aorta Sinus of Valsalva: 3.10 2.0-3.5 cm Ao Asc: 3.40 2.1-3.4 cm Pulmonary Veins Pulm Vein S/D 1.20 Pulmonary Valve PV Pk Be: 0.85 Peak PV Grad: 3.00 Updated in Other Vendor System with Status of Final Edward Anne MD electronically signed on 04/09/2023 4:16:28 PM with status of Final
[2023-04-09 07:08] LABS: Basophils Percent Auto 0.3 % (0-2); Eosinophils Absolute Auto 0.2 X10*3/uL (0.0-0.4); Eosinophils Percent Auto 1.6 % (0-4); Hematocrit 33.5 % (42.0-52.0); Hemoglobin 11.1 g/dl (14.0-18.0); Imm Gran Abs Auto 0.06 X10*3/uL (0.00-0.03); Imm Gran Pct Auto 0.4 % (0.0-0.4); Lymphocytes Absolute Auto 2.4 X10*3/uL (1.2-4.9); Lymphocytes Percent Auto 17.9 % (20-40); MANUAL DIFF FLAG SCAN; Mean Corpuscular HGB Conc 33.1 g/dl (31.0-36.0); Mean Corpuscular Hemoglobin 30.5 pg (27.0-33.0); Mean Platelet Volume 9.9 fL (9.4-12.4); Monocytes Absolute Auto 2.1 X10*3/uL (0.1-1.2); Monocytes Percent Auto 15.3 % (2-11); Neutrophils Absolute Auto 8.7 x10*3/uL (2.0-8.3); Neutrophils Percent Auto 64.5 % (45-73); Platelet Count 232 X10*3/uL (160-400); Red Blood Count 3.64 X10*6/uL (4.60-5.80); Red Cell Distribution Width 11.4 % (11.0-16.0); SCAN SMEAR FLAG 1; White Blood Count 13.5 X10*3/uL (4.8-10.8)
[2023-04-09 07:11] LABS: INTERNATIONAL NORM RATIO 1.3 (0.9-1.1); Prothrombin Time 16.3 SEC (11.1-13.3)
[2023-04-09 07:13] LABS: Partial Thromboplastin Time 34.8 SEC (26.0-36.4)
[2023-04-09 07:22] LABS: Anion Gap 11 (12-20); Blood Urea Nitrogen 24 mg/dL (9-16); Calcium 8.5 mg/dL (8.4-10.2); Carbon Dioxide 27 mmol/L (22-29); Chloride 103 mmol/L (96-108); Creatinine Clr Calc Pharmacy 86.7; Estimated Glomerular Filt Rate > 60; Glucose Random 129 mg/dL (60-115); Potassium 3.5 mmol/L (3.3-5.1); Sodium 137 mmol/L (135-145)
[2023-04-09 07:25] LABS: Alanine Aminotransferase 41 U/L (0-40); Albumin Level 3.3 g/dL (3.5-5.0); Alkaline Phosphatase 75 U/L (39-117); Aspartate Amino Transferase 35 U/L (5-37); Bilirubin Direct 0.6 mg/dL (0.0-0.5); Bilirubin Total 1.4 mg/dL (0.0-1.0); Total Protein 6.6 g/dL (6.5-8.0)
[2023-04-09 07:37] LABS: SLIDE REVIEW VERIFIED
[2023-04-09] MEDS: Valsartan 320 MG TABLET PO (08:58)
[2023-04-09] MEDS: Ezetimibe 10 MG TABLET PO (08:58)
[2023-04-09] MEDS: Finasteride 5 MG TABLET PO (08:59)
[2023-04-09] MEDS: 0.9 % Sodium Chloride Flush 3 ML SYRINGE IVFLUSH ×2 (09:00→18:05)
[2023-04-09] MEDS: hydroCHLOROthiazide 12.5 MG TABLET PO (09:00)
[2023-04-09 09:24] LABS: Glucose, Whole Blood 131 mg/dL (60-115)
[2023-04-09] MEDS: Lidocaine HCl 1 % MPF 5 ML VIAL 10 ML SUBCUT (10:39)
[2023-04-09 11:55] LABS: CDiff Gene PCR POSITIVE (Negative)
[2023-04-09 12:42] LABS: CDIFF Internal ctrl Dots and bkg OK (V); CDiff Toxin Negative (Negative)
[2023-04-09 14:14] LABS: Leukocytes Stool Qualitative NEGATIVE (NEGATIVE)
[2023-04-09 14:21] LABS: Adenovirus F 40/41 Not Detected (Not Detect.); Astrovirus Not Detected (Not Detect.); Campylobacter Not Detected (Not Detect.); Cryptosporidium Not Detected (Not Detect.); Cyclospora cayetanensis Not Detected (Not Detect.); E. coli EAEC Not Detected (Not Detect.); E. coli EPEC Detected (Not Detect.); E. coli ETEC Not Detected (Not Detect.); E. coli STEC Not Detected (Not Detect.); Entamoeba histolytica Not Detected (Not Detect.); Giardia lamblia Not Detected (Not Detect.); Norovirus GI/GII Not Detected (Not Detect.); Plesiomonas shigelloides Not Detected (Not Detect.); Rotavirus A Not Detected (Not Detect.); Salmonella Not Detected (Not Detect.); Sapovirus Not Detected (Not Detect.); Shigella sp./EIEC Not Detected (Not Detect.); Vibrio Not Detected (Not Detect.); Vibrio Cholerae Not Detected (Not Detect.); Yersinia enterocolitica Not Detected (Not Detect.)
--- NOTE | 2023-04-09 14:34 | P.PNIM_ITS ---
Subjective Subjective Date of Service: 04/09/23 Review of Systems Follow-up rectal discharge, fever and leukocytosis No further symptoms of discharge, fever, denies abdominal pain, nausea, vomiting Physical Exam Vital Signs: Vital Signs: Last Vital Signs Temp 98.4 F 04/09/23 11:31 Pulse 65 04/09/23 11:31 Resp 18 04/09/23 11:31 BP 123/61 04/09/23 11:31 Pulse Ox 96 04/09/23 11:31 O2 Del Method Nasal Cannula 04/09/23 11:31 O2 Flow Rate 2 04/09/23 11:31 BMI result Body Mass Index 33.7 Appearing in no acute distress lung sounds are clear to auscultation heart regular rate rhythm, clear S1, S2 positive bowel sounds, abdomen is soft, nontender neuro patient is alert x3, no focal deficits Objective Data Active Medications Acetaminophen (Acetaminophen 325 Mg Tablet) 650 mg PO Q6H PRN PRN Reason: Pain, Mild (Pain Scale 1-3) Last Admin: 04/08/23 09:07 Dose: 650 mg Documented By: MIKALA Atorvastatin Calcium (Atorvastatin Calcium 80 Mg Tablet) 80 mg PO BEDTIME [facility] Last Admin: 04/08/23 20:58 Dose: 80 mg Documented By: TAMI Docusate Sodium (Docusate Sodium 100 Mg Capsule) 100 mg PO DAILY PRN PRN Reason: Constipation Ezetimibe (Ezetimibe 10 Mg Tablet) 10 mg PO DAILY [facility] Last Admin: 04/09/23 08:58 Dose: 10 mg Documented By: DUYEN Finasteride (Finasteride 5 Mg Tablet) 5 mg PO DAILY [facility] Last Admin: 04/09/23 08:59 Dose: 5 mg Documented By: DUYEN Hydrochlorothiazide (Hydrochlorothiazide 12.5 Mg Tablet) 12.5 mg PO DAILY [facility]; Protocol Last Admin: 04/09/23 09:00 Dose: 12.5 mg Documented By: DUYEN Ceftriaxone Sodium 1 gm/ (Sodium Chloride) 50 mls @ 100 mls/hr IV Q24H [facility] Last Infusion: 04/09/23 06:31 Dose: 0 mls/hr Documented By: TAMI Omeprazole (Omeprazole 20 Mg Capsule.Dr) 20 mg PO DAILY@0630 [facility] Last Admin: 04/09/23 05:48 Dose: 20 mg Documented By: TAMI Ondansetron HCl (Ondansetron Hcl 4 Mg/2 Ml Vial) 4 mg IVPUSH Q8H PRN PRN Reason: Nausea and Vomiting Sodium Chloride (0.9 % Sodium Chloride Flush 3 Ml Syringe) 3 ml IVFLUSH QSHIFT [facility] Last Admin: 04/09/23 09:00 Dose: 3 ml Documented By: DUYEN Valsartan (Valsartan 320 Mg Tablet) 320 mg PO DAILY [facility]; Protocol Last Admin: 04/09/23 08:58 Dose: 320 mg Documented By: DUYEN Labs 04/09/23 06:20 04/09/23 06:20 Labs: Laboratory Results - last 24 hr 04/08/23 04/09/23 04/09/23 16:53 06:20 06:20 MCV 92.0 MCH 30.5 MCHC 33.1 RDW 11.4 Plt Count 232 MPV 9.9 Immature Gran % (Auto) 0.4 Neut % (Auto) 64.5 Lymph % (Auto) 17.9 L [place] % (Auto) 15.3 H Eos % (Auto) 1.6 Baso % (Auto) 0.3 Lymph # (Auto) 2.4 [place] # (Auto) 2.1 H Eos # (Auto) 0.2 Baso # (Auto) 0.0 Abs Immat Gran (auto) 0.06 H Absolute Neuts (auto) 8.7 H Absolute Nucleated RBC 0.000 Nucleated RBC % (auto) 0.0 Smear Tech's Comments VERIFIED PT INR APTT Anion Gap 11 L Estim Creat Clear Calc 86.7 Estimated GFR > 60 POC Glucose 133 H Random Glucose 129 H Calcium 8.5 Total Bilirubin Direct Bilirubin AST ALT Alkaline Phosphatase Total Protein Albumin Stool Leukocytes, Qual Stl C. cayetanensis PCR Stool Rotavirus A PCR Stl Adenov F 40/41 PCR Stool Astrovirus (PCR) Stool Campylobacter PCR Stool Cryptosporidium PCR Stl Sh Tox Pr E STEC PCR Stool E coli O157 PCR Stl Enterotoxigenic E PCR Stool EPEC (PCR) Stool EAEC (PCR) Stl E. histolytica PCR Stool Giardia Lamblia PCR Stl P. shigelloides PCR Stool Salmonella PCR Stool Sapovirus (PCR) Stl Shigella/EIEC PCR St Y.enterocolitica PCR Stool Vibrio (PCR) Stl Vibrio cholerae PCR Stl Norovirus GI/GII PCR C. difficile Tox B Gene C. difficile Toxin A&B C. difficile Interpret 04/09/23 04/09/23 04/09/23 06:20 06:20 08:30 MCV MCH MCHC RDW Plt Count MPV Immature Gran % (Auto) Neut % (Auto) Lymph % (Auto) [place] % (Auto) Eos % (Auto) Baso % (Auto) Lymph # (Auto) [place] # (Auto) Eos # (Auto) Baso # (Auto) Abs Immat Gran (auto) Absolute Neuts (auto) Absolute Nucleated RBC Nucleated RBC % (auto) Smear Tech's Comments PT 16.3 H INR 1.3 H APTT 34.8 Anion Gap Estim Creat Clear Calc Estimated GFR POC Glucose Random Glucose Calcium Total Bilirubin 1.4 H Direct Bilirubin 0.6 H AST 35 ALT 41 H Alkaline Phosphatase 75 Total Protein 6.6 Albumin 3.3 L Stool Leukocytes, Qual NEGATIVE Stl C. cayetanensis PCR Stool Rotavirus A PCR Stl Adenov F 40/41 PCR Stool Astrovirus (PCR) Stool Campylobacter PCR Stool Cryptosporidium PCR Stl Sh Tox Pr E STEC PCR Stool E coli O157 PCR Stl Enterotoxigenic E PCR Stool EPEC (PCR) Stool EAEC (PCR) Stl E. histolytica PCR Stool Giardia Lamblia PCR Stl P. shigelloides PCR Stool Salmonella PCR Stool Sapovirus (PCR) Stl Shigella/EIEC PCR St Y.enterocolitica PCR Stool Vibrio (PCR) Stl Vibrio cholerae PCR Stl Norovirus GI/GII PCR C. difficile Tox B Gene C. difficile Toxin A&B C. difficile Interpret 04/09/23 04/09/23 04/09/23 08:30 08:30 09:13 MCV MCH MCHC RDW Plt Count MPV Immature Gran % (Auto) Neut % (Auto) Lymph % (Auto) [place] % (Auto) Eos % (Auto) Baso % (Auto) Lymph # (Auto) [place] # (Auto) Eos # (Auto) Baso # (Auto) Abs Immat Gran (auto) Absolute Neuts (auto) Absolute Nucleated RBC Nucleated RBC % (auto) Smear Tech's Comments PT INR APTT Anion Gap Estim Creat Clear Calc Estimated GFR POC Glucose 131 H Random Glucose Calcium Total Bilirubin Direct Bilirubin AST ALT Alkaline Phosphatase Total Protein Albumin Stool Leukocytes, Qual Stl C. cayetanensis PCR Not Detected Stool Rotavirus A PCR Not Detected Stl Adenov F 40/41 PCR Not Detected Stool Astrovirus (PCR) Not Detected Stool Campylobacter PCR Not Detected Stool Cryptosporidium PCR Not Detected Stl Sh Tox Pr E STEC PCR Not Detected Stool E coli O157 PCR TNP Stl Enterotoxigenic E PCR Not Detected Stool EPEC (PCR) Detected A Stool EAEC (PCR) Not Detected Stl E. histolytica PCR Not Detected Stool Giardia Lamblia PCR Not Detected Stl P. shigelloides PCR Not Detected Stool Salmonella PCR Not Detected Stool Sapovirus (PCR) Not Detected Stl Shigella/EIEC PCR Not Detected St Y.enterocolitica PCR Not Detected Stool Vibrio (PCR) Not Detected Stl Vibrio cholerae PCR Not Detected Stl Norovirus GI/GII PCR Not Detected C. difficile Tox B Gene POSITIVE A* C. difficile Toxin A&B Negative C. difficile Interpret SEE NOTE Microbiology Microbiology Results: Microbiology 04/09/23 09:57 Gram Stain - Final Liver 04/08/23 Unknown Urine Culture - Final Urine clean catch - Urine liang top 04/07/23 20:29 Blood Culture - Preliminary Blood - Venous No growth after 24 hours. 04/07/23 20:29 Blood Culture - Preliminary Blood - Venous No growth after 24 hours. Assessment and Plan (1) Acute UTI: Status: Acute Plan 62-year-old male past medical history of Crohn's disease, hypertension, comes into the hospital with complaints of fever found to have sepsis Sepsis secondary to C diff Sepsis resolved Vancomycin 125 mg every 6 hours for 10 days Urine culture mixed bacteria Negative blood cultures times 24 hours ID consult pending UTI Initially treated with IV Rocephin, urine cultures came back mixed, will stop IV antibiotics Rectal discharge. resolved reports of viscous discharge from the rectum for several days GI consulted> no recommendation for colonoscopy at this time, normal rectal exam given steroids in the ED, will hold off any further steroids Liver abscess/cyst GI consulted> abdominal CT with noted liver abscess, status post liver abscess drainage, pathology pending GERD continue PPI history of hypertension stable continue antihypertensives DVT prophylaxis:? Early ambulation attending Dr. Pretty full code continued hospital stay for tx of sepsis and uti requiring IV abx Time Spent With Patient Time: Total time managing care of this patient today ____ minutes. Quality Stroke Does the patient have a stroke diagnosis?: No VTE Prior VTE?: No VTE Risk Level:: Medical - low VTE Device Contraindication: Treatment Not Indicated VTE Drug Contraindication: Treatment Not Indicated
--- NOTE | 2023-04-09 15:30 | PM.DS ---
DS: Providers Provider Date of Service: 04/09/23 Date of admission: 04/08/23 04:33 Primary care physician: Emy Otto CNP Consults: 04/08/23 04:34 Consult to Gastroenterology Routine Consulting Provider: John Evans Reason for consultation: hx of crohns, discharge per rectum serosanguineous Has provider been notified: No DS: Diagnosis Discharge Diagnosis (1) Acute UTI: Status: Acute (2) Sepsis: Status: Acute (3) Crohn's disease: Status: Inactive (4) Rectal discharge: Status: Acute DS: Summary Hospital Course Hospital Course: 62-year-old male past medical history of hypertension, diabetes, Crohn's disease under control comes into the hospital complaints of fever for the past 3 days.? Patient reports urinary frequency, he also reports a viscous discharge from his rectum with no pain.? Denies any anal intercourse, reports the fever up to 103 for the past 3 days, has no chest pain, no shortness of breath, no cough, no abdominal pain nausea or vomiting, no diarrhea constipation, no lower extremity edema. Reports that he was seen by history I and P on , was told that his discharge is likely from a burst hemorrhoid although he denies having bright red blood per rectum. On arrival to the ED patient found to have a temperature of 100.8 Labs are significant for WBC count of 15, hemoglobin of 12.8, hematocrit 37.8, CRP of 6.2 UA positive for leukocyte Estrace, and WBC. Patient started on antibiotics and will be admitted for further management 62-year-old man admitted after episodes of rectal discharge with blood and viscus neck quit. He does have history of Crohn's colitis and has had rectal abscesses in the past. The pus-like discharge was likely related to this. He has had no further episodes of discharge or blood from the rectum since Saturday. He did report a fever which is likely secondary to C diff which was positive. He denied any recent antibiotics however due to his diarrhea will treat symptomatically with vancomycin 125 mg every 6 hours for a total of 10 days. He was seen evaluated by the collection systems consultant recommended a liver abscess drain, which was done and pathology is pending. Micro g stain, routine culture and anaerobic culture no growth today. The urinalysis culture showed mixed bacteria and ultimately is negative. Due to fever and elevated white blood cell count echocardiogram was obtained because of history of endocarditis and was negative for vegetation. patient will go home on oral vancomycin to complete course for C diff and he should follow-up with the collection systems consultant for the results of the pathology. GERD. Continue PPI Hypertension. Continue home medications Crohn's continue home management Time Spent with Patient Time attestation: Total time managing care of this patient today ____ minutes. Discharge coordination time: Greater than 30 minutes Quality: Safe Use of Opioids Does Pt have an Active Cancer Diagnosis on the Problem List?: No Quality: Stroke Does the patient have a stroke diagnosis?: No Physical Exam Vital Signs: Vital Signs: Last Vital Signs Temp 98.4 F 04/09/23 11:31 Pulse 65 04/09/23 11:31 Resp 18 04/09/23 11:31 BP 123/61 04/09/23 11:31 Pulse Ox 96 04/09/23 11:31 O2 Del Method Nasal Cannula 04/09/23 11:31 O2 Flow Rate 2 04/09/23 11:31 BMI result Body Mass Index 33.7 Appearing in no acute distress head is normocephalic atraumatic eyes pupils are PERRLA sclera is anicteric mouth throat mucous membranes are intact and moist neck is supple no lymphadenopathy, no JVD noted lung sounds are clear to auscultation heart regular rate rhythm, clear S1, S2 positive bowel sounds, abdomen is soft, nontender neuro patient is alert x3, no focal deficits DS: Data Data Completed and Pending Pending studies at discharge: Pending at discharge 04/09/23 10:22 Surgical [PTH] Routine Cytology [PTH] Routine Labs on day of discharge: Laboratory Results - last 24 hr 04/08/23 04/09/23 04/09/23 16:53 06:20 06:20 WBC 13.5 H RBC 3.64 L Hgb 11.1 L Hct 33.5 L MCV 92.0 MCH 30.5 MCHC 33.1 RDW 11.4 Plt Count 232 MPV 9.9 Immature Gran % (Auto) 0.4 Neut % (Auto) 64.5 Lymph % (Auto) 17.9 L [place] % (Auto) 15.3 H Eos % (Auto) 1.6 Baso % (Auto) 0.3 Lymph # (Auto) 2.4 [place] # (Auto) 2.1 H Eos # (Auto) 0.2 Baso # (Auto) 0.0 Abs Immat Gran (auto) 0.06 H Absolute Neuts (auto) 8.7 H Absolute Nucleated RBC 0.000 Nucleated RBC % (auto) 0.0 Smear Tech's Comments VERIFIED PT INR APTT Sodium 137 Potassium 3.5 Chloride 103 Carbon Dioxide 27 Anion Gap 11 L BUN 24 H Creatinine 0.97 Estim Creat Clear Calc 86.7 Estimated GFR > 60 POC Glucose 133 H Random Glucose 129 H Calcium 8.5 Total Bilirubin Direct Bilirubin AST ALT Alkaline Phosphatase Total Protein Albumin Stool Leukocytes, Qual Stl C. cayetanensis PCR Stool Rotavirus A PCR Stl Adenov F 40/ PCR Stool Astrovirus (PCR) Stool Campylobacter PCR Stool Cryptosporidium PCR Stl Sh Tox Pr E STEC PCR Stool E coli O157 PCR Stl Enterotoxigenic E PCR Stool EPEC (PCR) Stool EAEC (PCR) Stl E. histolytica PCR Stool Giardia Lamblia PCR Stl P. shigelloides PCR Stool Salmonella PCR Stool Sapovirus (PCR) Stl Shigella/EIEC PCR St Y.enterocolitica PCR Stool Vibrio (PCR) Stl Vibrio cholerae PCR Stl Norovirus GI/GII PCR C. difficile Tox B Gene C. difficile Toxin A&B C. difficile Interpret 04/09/23 04/09/23 04/09/23 06:20 06:20 08:30 WBC RBC Hgb Hct MCV MCH MCHC RDW Plt Count MPV Immature Gran % (Auto) Neut % (Auto) Lymph % (Auto) [place] % (Auto) Eos % (Auto) Baso % (Auto) Lymph # (Auto) [place] # (Auto) Eos # (Auto) Baso # (Auto) Abs Immat Gran (auto) Absolute Neuts (auto) Absolute Nucleated RBC Nucleated RBC % (auto) Smear Tech's Comments PT 16.3 H INR 1.3 H APTT 34.8 Sodium Potassium Chloride Carbon Dioxide Anion Gap BUN Creatinine Estim Creat Clear Calc Estimated GFR POC Glucose Random Glucose Calcium Total Bilirubin 1.4 H Direct Bilirubin 0.6 H AST 35 ALT 41 H Alkaline Phosphatase 75 Total Protein 6.6 Albumin 3.3 L Stool Leukocytes, Qual NEGATIVE Stl C. cayetanensis PCR Stool Rotavirus A PCR Stl Adenov F 40/41 PCR Stool Astrovirus (PCR) Stool Campylobacter PCR Stool Cryptosporidium PCR Stl Sh Tox Pr E STEC PCR Stool E coli O157 PCR Stl Enterotoxigenic E PCR Stool EPEC (PCR) Stool EAEC (PCR) Stl E. histolytica PCR Stool Giardia Lamblia PCR Stl P. shigelloides PCR Stool Salmonella PCR Stool Sapovirus (PCR) Stl Shigella/EIEC PCR St Y.enterocolitica PCR Stool Vibrio (PCR) Stl Vibrio cholerae PCR Stl Norovirus GI/GII PCR C. difficile Tox B Gene C. difficile Toxin A&B C. difficile Interpret 04/09/23 04/09/23 04/09/23 08:30 08:30 09:13 WBC RBC Hgb Hct MCV MCH MCHC RDW Plt Count MPV Immature Gran % (Auto) Neut % (Auto) Lymph % (Auto) [place] % (Auto) Eos % (Auto) Baso % (Auto) Lymph # (Auto) [place] # (Auto) Eos # (Auto) Baso # (Auto) Abs Immat Gran (auto) Absolute Neuts (auto) Absolute Nucleated RBC Nucleated RBC % (auto) Smear Tech's Comments PT INR APTT Sodium Potassium Chloride Carbon Dioxide Anion Gap BUN Creatinine Estim Creat Clear Calc Estimated GFR POC Glucose 131 H Random Glucose Calcium Total Bilirubin Direct Bilirubin AST ALT Alkaline Phosphatase Total Protein Albumin Stool Leukocytes, Qual Stl C. cayetanensis PCR Not Detected Stool Rotavirus A PCR Not Detected Stl Adenov F 40/41 PCR Not Detected Stool Astrovirus (PCR) Not Detected Stool Campylobacter PCR Not Detected Stool Cryptosporidium PCR Not Detected Stl Sh Tox Pr E STEC PCR Not Detected Stool E coli O157 PCR TNP Stl Enterotoxigenic E PCR Not Detected Stool EPEC (PCR) Detected A Stool EAEC (PCR) Not Detected Stl E. histolytica PCR Not Detected Stool Giardia Lamblia PCR Not Detected Stl P. shigelloides PCR Not Detected Stool Salmonella PCR Not Detected Stool Sapovirus (PCR) Not Detected Stl Shigella/EIEC PCR Not Detected St Y.enterocolitica PCR Not Detected Stool Vibrio (PCR) Not Detected Stl Vibrio cholerae PCR Not Detected Stl Norovirus GI/GII PCR Not Detected C. difficile Tox B Gene POSITIVE A* C. difficile Toxin A&B Negative C. difficile Interpret SEE NOTE Preliminary micro results at discharge 04/07/23 20:29 Blood Culture - Preliminary Blood - Venous No growth after 24 hours. 04/07/23 20:29 Blood Culture - Preliminary Blood - Venous No growth after 24 hours. Discharge Plan Discharge Anticipated Discharge Date/Time: 04/10/23 15:20 Patient Disposition: Home, Self-Care Discharge Diagnosis: C diff Rectal discharge Liver lesions Referrals: Emy Otto CNP [Primary Care Provider] - 1 Week Discharge Medications: New vancomycin 125 mg capsule 125 mg PO QID Qty: 40 0RF Continued atorvastatin 80 mg tablet 80 mg PO BEDTIME meloxicam 15 mg tablet 15 mg PO DAILY PRN (Reason: Back Pain) pantoprazole 40 mg tablet,delayed release (DR/EC) 40 mg PO DAILY valsartan 320 mg tablet 320 mg PO DAILY finasteride 5 mg tablet 5 mg PO DAILY ezetimibe 10 mg tablet 10 mg PO DAILY hydrochlorothiazide 12.5 mg tablet 12.5 mg PO DAILY Discharge Orders: Discharge Order (Routine); Ordered 04/10/23 Ordered By: Marietta Santos Diet: Advance to usual diet Activity on Discharge: As tolerated Stand Alone Forms: Patient Portal Discharge page Care Plan Goals: Follow-up with collection systems consultant regarding pathology report for liver lesions Health Concerns: C diff. continue treatment with oral vancomycin for a total of 10 days Rectal discharge-resolved Liver lesions-pathology pending Plan of Treatment: Follow-up with primary care provider as needed Take all medications as prescribed Assessment: See discharge summary
[2023-04-09] MEDS: Benzonatate 100 MG CAPSULE PO (18:02)
[2023-04-09] MEDS: vancomycin HCL 125 MG CAPSULE PO (18:05)
[2023-04-09] MEDS: Acetaminophen 325 MG TABLET 650 MG PO (20:17)
--- NOTE | 2023-04-09 20:36 | PC.NURSE ---
Assumed care at 07:00. A&Ox4. AMbulatory independent. Had all AM meds ok per PACU with sip this morning. Patient had liver biopsya and returned, denies pain, site midline upper abdomen CDI to bandage. Patient diet upgraded, ate dinner. Patient reports frequent dry cough this afternoon, nonproductive. CIVIL ENGINEERING DESIGNER notified, ronni dentles orderd and administered. Patient with mild temp in evening Tmax 101.
[2023-04-09] MEDS: Atorvastatin Calcium 80 MG TABLET PO (21:18)
[2023-04-10] MEDS: 0.9 % Sodium Chloride Flush 3 ML SYRINGE IVFLUSH ×3 (00:42→15:05)
[2023-04-10] MEDS: vancomycin HCL 125 MG CAPSULE PO ×3 (00:42→13:57)
[2023-04-10 03:49] VITALS: BP 146/67; PULSE 79; RESP 19; TEMP 37.2; O2SAT 95
[2023-04-10] MEDS: Benzonatate 100 MG CAPSULE PO ×2 (05:00→15:12)
[2023-04-10] MEDS: cefTRIAXone sodium 1 GM in 0.9 % Sodium Chloride 50 ML IV (05:00)
[2023-04-10] MEDS: Omeprazole 20 MG CAPSULE.DR PO (05:34)
[2023-04-10 07:12] LABS: Hemoglobin 11.6 g/dl (14.0-18.0); Mean Corpuscular HGB Conc 33.1 g/dl (31.0-36.0); Mean Corpuscular Volume 90.4 fL (80.0-98.0); Mean Platelet Volume 9.7 fL (9.4-12.4); Platelet Count 265 X10*3/uL (160-400); Red Blood Count 3.87 X10*6/uL (4.60-5.80); Red Cell Distribution Width 11.2 % (11.0-16.0); White Blood Count 12.3 X10*3/uL (4.8-10.8)
[2023-04-10 07:25] LABS: Anion Gap 11 (12-20); Blood Urea Nitrogen 17 mg/dL (9-16); Calcium 8.7 mg/dL (8.4-10.2); Carbon Dioxide 27 mmol/L (22-29); Chloride 103 mmol/L (96-108); Creatinine Clr Calc Pharmacy 97.8; Estimated Glomerular Filt Rate > 60; Glucose Random 123 mg/dL (60-115); Potassium 3.6 mmol/L (3.3-5.1); Sodium 137 mmol/L (135-145)
[2023-04-10 08:00] VITALS: BP 143/67; PULSE 82; RESP 18; TEMP 36.9; O2SAT 94
[2023-04-10] MEDS: Valsartan 320 MG TABLET PO (08:19)
[2023-04-10] MEDS: Finasteride 5 MG TABLET PO (08:19)
[2023-04-10] MEDS: hydroCHLOROthiazide 12.5 MG TABLET PO (08:19)
[2023-04-10] MEDS: Ezetimibe 10 MG TABLET PO (08:19)
--- NOTE | 2023-04-10 14:28 | MHC.CM.PN ---
Per MD rounds no discharge today.DP home self care. Patient will arrange for transport home.
--- NOTE | 2023-04-10 14:39 | W.PM.IDCN ---
History of Present Illness Data of Consult Service Date: 04/10/23 Requesting physician: Marietta Santos Primary Care Provider: Emy Otto CNP HPI Reason for consult: possible infection,Cdiff positive pcr He presents with five days fever and chill with perirectal pain. There is resolving rectal pain. There is concern over liver abscess per GI. Perirectal pain is resolving. Review of Systems Review of Systems: Yes all other systems are reviewed and are negative PMFSH Past Medical History Medical History (Updated 04/10/23 @ 14:43 by Mariana Benson MD) C. difficile colitis Crohn's disease Diabetes Endocarditis Hypertension Mitral valve prolapse Family History Family history: reviewed and not pertinent Surgical History Surgical History H/O colonoscopy History of hernia surgery Social History Social History Household Members: Spouse Housing: House Alcohol intake: current Alcohol intake frequency: a few times a month Patient Tobacco Use Status: Never used Tobacco service: No Meds Allergies Allergy/AdvReac Type Severity Reaction Status Date / Time Sulfa (Sulfonamide Allergy Intermediate Rash Verified 04/09/23 09:02 Antibiotics) Active Medications: Current Medications Acetaminophen (Acetaminophen 325 Mg Tablet) 650 mg PO Q6H PRN PRN Reason: Pain, Mild (Pain Scale 1-3) Last Admin: 04/09/23 20:17 Dose: 650 mg Atorvastatin Calcium (Atorvastatin Calcium 80 Mg Tablet) 80 mg PO BEDTIME ANITA Last Admin: 04/09/23 21:18 Dose: 80 mg Benzonatate (Benzonatate 100 Mg Capsule) 100 mg PO TID PRN PRN Reason: Cough Last Admin: 04/10/23 05:00 Dose: 100 mg Docusate Sodium (Docusate Sodium 100 Mg Capsule) 100 mg PO DAILY PRN PRN Reason: Constipation Ezetimibe (Ezetimibe 10 Mg Tablet) 10 mg PO DAILY ANITA Last Admin: 04/10/23 08:19 Dose: 10 mg Finasteride (Finasteride 5 Mg Tablet) 5 mg PO DAILY ANITA Last Admin: 04/10/23 08:19 Dose: 5 mg Hydrochlorothiazide (Hydrochlorothiazide 12.5 Mg Tablet) 12.5 mg PO DAILY ANITA; Protocol Last Admin: 04/10/23 08:19 Dose: 12.5 mg Ceftriaxone Sodium 1 gm/ (Sodium Chloride) 50 mls @ 100 mls/hr IV Q24H [facility] Last Infusion: 04/10/23 05:33 Dose: Infused Omeprazole (Omeprazole 20 Mg Capsule.Dr) 20 mg PO DAILY@0630 [facility] Last Admin: 04/10/23 05:34 Dose: 20 mg Ondansetron HCl (Ondansetron Hcl 4 Mg/2 Ml Vial) 4 mg IVPUSH Q8H PRN PRN Reason: Nausea and Vomiting Sodium Chloride (0.9 % Sodium Chloride Flush 3 Ml Syringe) 3 ml IVFLUSH QSHIFT [facility] Last Admin: 04/10/23 08:19 Dose: 3 ml Valsartan (Valsartan 320 Mg Tablet) 320 mg PO DAILY [facility]; Protocol Last Admin: 04/10/23 08:19 Dose: 320 mg Vancomycin HCl (Vancomycin Hcl 125 Mg Capsule) 125 mg PO Q6H [facility] Last Admin: 04/10/23 13:57 Dose: 125 mg Home Medications Medication Instructions Recorded Confirmed Last Taken Type atorvastatin 80 mg tablet 80 mg PO BEDTIME 04/08/23 04/08/23 04/07/23 History ezetimibe 10 mg tablet 10 mg PO DAILY 04/08/23 04/08/23 04/07/23 History finasteride 5 mg tablet 5 mg PO DAILY 04/08/23 04/08/23 04/07/23 History hydrochlorothiazide 12.5 mg tablet 12.5 mg PO DAILY 04/08/23 04/08/23 04/07/23 History meloxicam 15 mg tablet 15 mg PO DAILY PRN Back Pain 04/08/23 04/08/23 04/07/23 History pantoprazole 40 mg tablet,delayed 40 mg PO DAILY 04/08/23 04/08/23 04/07/23 History release valsartan 320 mg tablet 320 mg PO DAILY 04/08/23 04/08/23 04/07/23 History Physical Exam Vital Signs: Vital Signs: Last Vital Signs Temp 98.4 F 04/10/23 08:00 Pulse 82 04/10/23 08:00 Resp 18 04/10/23 08:00 BP 143/67 H 04/10/23 08:00 Pulse Ox 94 04/10/23 08:00 O2 Del Method Room Air 04/10/23 08:00 O2 Flow Rate 2 04/09/23 11:31 BMI result Body Mass Index 33.7 Const: General: cooperative HEENT: Head: Yes normal to inspection Face and sinus: Yes normal facial exam Mouth: Normal oral and palatal mucosa present Teeth and gingiva: dentition normal Eyes: General: appearance normal, both eyes and all related structures Pupils: Equal, round and reactive pupils present Resp: Effort & Inspection: normal respiratory effort Cardio: Rate: regular rate Rhythm: regular rhythm GI: Other: mild abdominal discomfort Palpation (GI): Soft to palpation and nontender : General: Yes no CVA tenderness Back/Spine/Pelvis: Back: no CVA tenderness Skin: General skin exam: no rashes or lesions noted Neuro: General: moves all extremities Cranial nerves: Yes Equal, round and reactive pupils present Extrem: General: Yes normal to inspection Psych: Appearance: grossly normal Results Labs 04/10/23 06:20 04/10/23 06:20 Labs: Short CBC 04/10/23 Range/Units 06:20 WBC 12.3 H (4.8-10.8) X10*3/uL Hgb 11.6 L (14.0-18.0) g/dl Hct 35.0 L (42.0-52.0) % Plt Count 265 (160-400) X10*3/uL BMP 04/10/23 06:20 Sodium 137 Potassium 3.6 Chloride 103 Carbon Dioxide 27 BUN 17 H Creatinine 0.86 Calcium 8.7 Microbiology Microbiology Results: Microbiology 04/09/23 09:57 Liver Gram Stain - Final 04/09/23 09:57 Liver Routine Culture - Preliminary No growth to date. 04/09/23 09:57 Liver Anaerobic Culture - Preliminary No growth to date. 04/07/23 20:29 Blood - Venous Blood Culture - Preliminary No growth after 48 hours. 04/07/23 20:29 Blood - Venous Blood Culture - Preliminary No growth after 48 hours. 04/08/23 Unknown Urine clean catch - Urine liang top Urine Culture - Final Assessment and Plan (1) Fever: Status: Acute There is concern over perirectal abscess resolved. GI has concerns over liver abscess. Cdiff is first time patient heard of diagnosis ,so may be colonized or have early disease with diarrhea. (2) Sepsis: Qualifiers: Sepsis type: sepsis due to unspecified organism Sepsis acute organ dysfunction status: without acute organ dysfunction Qualified Code(s): A41.9 - Sepsis, unspecified organism Status: Acute (3) Rectal discharge: Status: Acute (4) C. difficile colitis: Status: Acute Plan Continue Ceftriaxone for now. Without bacteremia there doesnt seem to be concern for endocarditis. Check HIV test Continue Vancomycin and may give for 10 days outpatient and 10 days Augmentin unless MRSA identified. Time Spent With Patient Time: Total time managing care of this patient today ____ minutes.
[2023-04-10 15:20] VITALS: BP 124/59; PULSE 78; RESP 18; TEMP 37.1; O2SAT 94
--- NOTE | 2023-04-10 16:02 | MHC.CM.PN ---
Patient is discharged to home self care. He will arrange for transport home.
[2023-04-11 05:16] LABS: HIV AB/AG Nonreactive (Nonreactive); HIV Num 1 0.07 S/CO (0.00-0.99)
== END 2023-04-10 16:44 | disposition home or self-care (01) | DRG 248 ==
LOC: HO.ED 04-08 04:31 → HO.EDOVER 04-08 04:38 → HO.IMC 04-08 19:36 → HO.S3 04-09 19:14
PROVIDERS: Hospitalist; Internal Medicine; Physician Assistant; Radiology Vascular & Interventional Radiology; Admitting Provider Internal Medicine; Emergency Provider Emergency Medicine; PCP Nurse Practitioner Primary Care; Visit Provider Nurse Practitioner Acute Care
PROC: 0FB23ZX Excision of Left Lobe Liver, Percutaneous Approach, Diagnostic (ICD-10-PCS; principal; 2023-04-09 09:00)
DX: A04.72 Enterocolitis due to Clostridium difficile, not specified as recurrent (principal); K75.0 Abscess of liver; I10 Essential (primary) hypertension; K50.90 Crohn's disease, unspecified, without complications; Z79.899 Other long term (current) drug therapy
CPT/HCPCS: 0241U; 36415; 47000; 71045; 74177; 76705; 76942; 80048; 80053; 80076; 81001; 82947; 83605; 85025; 85027; 85610; 85652; 85730; 86140; 87040; 87070; 87073; 87086; 87205; 87324; 87389; 87493; 87507; 88112; 88305; 88307; 88313; 89055; 93306; 99152; 99153; 99285; J0696; J2543; Q9957

== ENCOUNTER 2023-04-08 04:33 | Outpatient (BNV) | payer OTHER, SELFPAY | END 2023-04-09 08:00 | PROVIDERS: Admitting Provider Internal Medicine; Emergency Provider Emergency Medicine; PCP Nurse Practitioner Primary Care; Visit Provider Radiology Vascular & Interventional Radiology | DX: N39.0 Urinary tract infection, site not specified (principal); A41.9 Sepsis, unspecified organism | CPT/HCPCS: 47000; 76942 ==

== ENCOUNTER 2023-04-08 04:33 | Outpatient (BNV) | payer OTHER, SELFPAY | END 2023-04-09 07:00 | PROVIDERS: Admitting Provider Internal Medicine; Emergency Provider Emergency Medicine; PCP Nurse Practitioner Primary Care; Visit Provider Internal Medicine Cardiovascular Disease | DX: I34.89 Other nonrheumatic mitral valve disorders (principal) | CPT/HCPCS: 93306 ==

== ENCOUNTER → 2023-04-08 04:33 | Outpatient (BNV) | payer OTHER, SELFPAY | PROVIDERS: Admitting Provider Internal Medicine; Emergency Provider Emergency Medicine; PCP Nurse Practitioner Primary Care; Visit Provider Internal Medicine | DX: R50.9 Fever, unspecified (principal); A41.9 Sepsis, unspecified organism; R19.8 Other specified symptoms and signs involving the digestive system and abdomen; A04.72 Enterocolitis due to Clostridium difficile, not specified as recurrent | CPT/HCPCS: 99222 ==

== ENCOUNTER → 2023-04-08 04:33 | Outpatient (BNV) | payer OTHER, SELFPAY | PROVIDERS: Admitting Provider Internal Medicine; Emergency Provider Emergency Medicine; PCP Nurse Practitioner Primary Care; Visit Provider Internal Medicine | DX: N39.0 Urinary tract infection, site not specified (principal) | CPT/HCPCS: 99223; 99232; 99239; 99499 ==

== ENCOUNTER 2023-04-16 23:04 | Inpatient (IN) | payer OTHER, SELFPAY ==
--- NOTE | ~2023-04-16 | XR_ITS ---
EXAMINATION: XR CHEST CLINICAL INFORMATION: Fever COMPARISON: 04/07/2023 TECHNIQUE: 2 views of the chest were obtained. FINDINGS: The lungs are hypoinflated. No focal consolidation is seen. No evidence of pneumothorax, pleural effusion, or pulmonary edema. Cardiac silhouette is enlarged. No acute osseous findings are seen. XR/XR chest 2V IMPRESSION: Low lung volumes without focal consolidation. Enlarged cardiac silhouette.
--- NOTE | ~2023-04-16 | CT_ITS ---
EXAMINATION: CT abdomen pelvis w IV con CLINICAL INFORMATION: Reason for Exam F U liver abscesses COMPARISON: Recent CT 04/18/2023 TECHNIQUE: Multidetector volumetric imaging was performed from the superior aspect of the liver through the pubic symphysis 85 mL Omnipaque 350 injected Sagittal and coronal reformatted images were obtained on the technologist's workstation. This CT examination was performed using dose optimization techniques as appropriate, variously including the following: *Automated exposure control *Adjustment of mA and/or kV according to patient size (this includes techniques or standardized protocols for targeted exams where dose is matched to indication/reason for exam; i.e. extremities or head) *Use of iterative reconstruction technique DLP: 704 mGy-cm FINDINGS: LOWER THORAX: Included lung bases are clear. HEPATOBILIARY: Redemonstration of multiple hypodense lesion in the liver scattered throughout involving both right and left lobe. Some of which are more hypodense on current exam suggesting liquefication of their matrix, the one in the left lobe was recently drained on 04/18/2023, otherwise overall they have not significantly changed in size and number. The largest in the left lobe roughly measures 3 x 2.1 cm, surrounding heterogeneity might be post biopsy scarring. GALLBLADDER: Gallbladder unremarkable. SPLEEN: Spleen is normal in size. PANCREAS: No focal mass or ductal dilatation. STOMACH AND GASTROINTESTINAL TRACT: Stomach is grossly unremarkable. There is sigmoid diverticulosis without CT evidence of acute diverticulitis. No CT evidence of appendicitis. ADRENALS: No adrenal nodules. KIDNEYS/URETERS: No hydronephrosis, stones or solid mass lesions. URINARY BLADDER: Partially decompressed. PELVIC VISCERA: Unremarkable PERITONEUM: No free air or fluid. LYMPH NODES: No lymphadenopathy. VASCULAR:Abdominal aorta normal in size, no aneurysm found. BONES, ABDOMINAL WALL AND SOFT TISSUES: Age-appropriate changes of the spine and skeletal system, no destructive osteolytic or osteosclerotic bone lesion found CT/CT abdomen pelvis w IV con IMPRESSION: - Redemonstration of multiple hypodense lesions in the liver both right and left lobe. Some of which are more hypodense on current exam suggesting liquefication of their matrix, the one in the left lobe was recently biopsied/drained on 04/18/2023, otherwise overall they have not significantly changed in size and number. The largest in the left lobe roughly 3 x 2.1 cm, surrounding heterogeneity might be post biopsy scarring. - Diverticulosis without evidence of acute diverticulitis.
--- NOTE | ~2023-04-16 | CT_ITS ---
PROCEDURE: CT GUIDED BIOPSY, ABDOMINAL MASS After informed and written consent was obtained an official timeout was performed immediately prior to the procedure. I was personally responsible for the administration of moderate sedation services, all requirements were followed, an independent trained observer was utilized. CLINICAL INFORMATION: Sepsis COMPARISON: Previous CT scan dated 04/08/2023 and 04/17/2023. TECHNIQUE: The CT scan demonstrates an enlarging lesion in the left lobe of the liver. The skin was prepped and draped in usual fashion. 1% Xylocaine was used for local anesthetic. Under CT guidance an 18-gauge Temno core biopsy needle was placed into the lesion. 10 mL of purulent fluid was aspirated and sent for Gram stain, culture and sensitivity. A biopsy was therefore not performed. This CT examination was performed using dose optimization techniques as appropriate, variously including the following: *Automated exposure control *Adjustment of mA and/or kV according to patient size (this includes techniques or standardized protocols for targeted exams where dose is matched to indication/reason for exam; i.e. extremities or head) *Use of iterative reconstruction technique FINDINGS: Enlarging hypodensity in the left lobe of the liver. CT-guided aspirated with 10 mL of purulent fluid aspirated and sent for Gram stain, culture and sensitivity.. CT/CT guided aspiration liver IMPRESSION: Aspiration of the abscess in the left lobe of the liver
--- NOTE | ~2023-04-16 | CT_ITS ---
EXAMINATION: CT ABDOMEN AND PELVIS WITH CONTRAST CLINICAL INFORMATION: Fever, liver abscess, colitis COMPARISON: 04/08/2023 TECHNIQUE: Multidetector volumetric images were obtained from the superior aspect of the liver through the pubic symphysis following administration 85 mL of Omnipaque 350 intravenous contrast. Sagittal and coronal reformatted images were obtained on the technologist's workstation. Oral contrast: No This CT examination was performed using dose optimization techniques as appropriate, variously including the following: *Automated exposure control *Adjustment of mA and/or kV according to patient size (this includes techniques or standardized protocols for targeted exams where dose is matched to indication/reason for exam; i.e. extremities or head) *Use of iterative reconstruction technique DLP: 715 mGy-cm FINDINGS: LUNG BASES: The visualized lung bases are unremarkable. LIVER, GALLBLADDER, AND BILIARY TREE: There is a heterogeneous overall mildly hypoattenuating lesion in the left hepatic lobe to the right of the falciform ligament. Margins are ill-defined, and this measures up to approximately 3 cm in diameter which is increased compared to recent prior exam. There is redemonstration of several additional scattered hypoattenuating foci throughout the liver which appear more similar to 04/08/2023 and measure up to approximately 2 cm. No intrahepatic biliary ductal dilatation. Gallbladder is contracted and not well assessed. PANCREAS: Unremarkable. SPLEEN: Unremarkable. ADRENAL GLANDS: Unremarkable. KIDNEYS AND URETERS: Bilateral nephrograms are symmetric. No hydronephrosis or obstructing calculus identified. BLADDER: Partially distended. Small right-sided bladder diverticulum noted. GASTROINTESTINAL TRACT: Colonic diverticulosis is noted. The appendix is unremarkable. No free fluid or free air is seen. ABDOMINAL WALL: No significant hernia is appreciated. LYMPH NODES: Normal. VASCULAR: Mild atherosclerotic calcification along the aorta. PELVIC VISCERA: Unremarkable. OSSEOUS STRUCTURES: Degenerative changes are noted in the spine. CT/CT abdomen pelvis w IV con IMPRESSION: 1. Heterogeneous mildly hypoattenuating lesion in the left hepatic lobe is increased in size compared to 04/08/2023, now approximately 3 cm, and is suspicious for abscess. 2. Multiple additional scattered hypoattenuating foci throughout the liver appear overall similar to 04/08/2023. These are indeterminate, and the possibility of at least one of these representing additional abscesses cannot be excluded.
[2023-04-16 23:42] VITALS: BP 148/65; PULSE 83; RESP 16; TEMP 37.5; O2SAT 95; BMI 34.6
[2023-04-17] VITALS (8 sets, daily range): BP systolic 139–155; BP diastolic 55–76; PULSE 78–86; RESP 16–18; TEMP 36.6–38.2; O2SAT 94–98
[2023-04-17 00:20] LABS: Basophils Percent Auto 0.3 % (0-2); Eosinophils Absolute Auto 0.2 X10*3/uL (0.0-0.4); Eosinophils Percent Auto 1.5 % (0-4); Hematocrit 35.5 % (42.0-52.0); Hemoglobin 11.8 g/dl (14.0-18.0); Imm Gran Abs Auto 0.11 X10*3/uL (0.00-0.03); Imm Gran Pct Auto 0.8 % (0.0-0.4); Lymphocytes Absolute Auto 2.3 X10*3/uL (1.2-4.9); Lymphocytes Percent Auto 15.7 % (20-40); MANUAL DIFF FLAG SCAN; Mean Corpuscular HGB Conc 33.2 g/dl (31.0-36.0); Mean Corpuscular Volume 90.3 fL (80.0-98.0); Mean Platelet Volume 8.7 fL (9.4-12.4); Monocytes Absolute Auto 1.7 X10*3/uL (0.1-1.2); Monocytes Percent Auto 11.4 % (2-11); Neutrophils Absolute Auto 10.2 x10*3/uL (2.0-8.3); Neutrophils Percent Auto 70.3 % (45-73); Platelet Count 408 X10*3/uL (160-400); Red Blood Count 3.93 X10*6/uL (4.60-5.80); Red Cell Distribution Width 10.9 % (11.0-16.0); SCAN SMEAR FLAG 1; White Blood Count 14.5 X10*3/uL (4.8-10.8)
[2023-04-17 00:26] LABS: Appearance Urine Clear; Color Urine Yellow; Glucose Urine UA Negative (Negative); Leukocyte Esterase Urine Trace (Negative); Nitrite Urine Negative (Negative); PH 6.5 (5.0-9.0); UMIC TRIGGER UACC YES; Urine Blood Negative (Negative); Urine Ketones Negative (Negative); Urine Protein Negative (Neg-Trace)
[2023-04-17 00:31] LABS: Bacteria Urine None Seen (None Seen); Hyaline Casts Urine 0-2 /LPF (0-2); RBC Urine 0-2 /HPF (0-2); WBC Urine 0-5 /HPF (0-5)
[2023-04-17 00:33] LABS: Anion Gap 14 (12-20); Blood Urea Nitrogen 15 mg/dL (9-16); Calcium 9.3 mg/dL (8.4-10.2); Carbon Dioxide 25 mmol/L (22-29); Chloride 100 mmol/L (96-108); Creatinine Clr Calc Pharmacy 110.6; Estimated Glomerular Filt Rate > 60; Glucose Random 125 mg/dL (60-115); Lipase 20 U/L (8-78); Potassium 3.9 mmol/L (3.3-5.1); Sodium 135 mmol/L (135-145)
[2023-04-17 00:37] LABS: SLIDE REVIEW VERIFIED
--- NOTE | 2023-04-17 00:53 | ED.GENADULT ---
HPI - General Adult General Chief complaint: Abdominal Pain Stated complaint: Fever, upper abdominal pain Time Seen by Provider: 04/17/23 00:18 Source: patient Mode of arrival: ambulatory Limitations: no limitations History of Present Illness HPI narrative: 62-year-old male past medical history of HTN, dm, Crohn's disease, had a recent hospitalization for fever caused by UTI patient was placed on antibiotic as a side effect patient develop C diff colitis patient currently is taking vancomycin orally for the C diff patient returned today for persistent of the fever, patient been having a dry cough for 10 days had a negative chest x-ray. Patient was hospitalized and discharged on 04/09/2023 patient had extensive workup for his fever including chest x-ray, blood workup, cultures, CT abdomen and pelvis, echocardiogram to rule out endocarditis, patient also had liver abscess drainage by IR blood/urine/liver shows no bacteria growth as of today. Related Data Home Medications Medication Instructions Recorded Confirmed atorvastatin 80 mg tablet 80 mg PO BEDTIME 04/08/23 04/08/23 ezetimibe 10 mg tablet 10 mg PO DAILY 04/08/23 04/08/23 finasteride 5 mg tablet 5 mg PO DAILY 04/08/23 04/08/23 hydrochlorothiazide 12.5 mg tablet 12.5 mg PO DAILY 04/08/23 04/08/23 meloxicam 15 mg tablet 15 mg PO DAILY PRN Back Pain 04/08/23 04/08/23 pantoprazole 40 mg tablet,delayed 40 mg PO DAILY 04/08/23 04/08/23 release valsartan 320 mg tablet 320 mg PO DAILY 04/08/23 04/08/23 Previous Rx's Medication Instructions Recorded vancomycin 125 mg capsule 125 mg PO QID #40 caps 04/09/23 benzonatate 100 mg capsule 100 mg PO TID PRN Cough #12 caps 04/10/23 Allergies Allergy/AdvReac Type Severity Reaction Status Date / Time Sulfa (Sulfonamide Allergy Intermediate Rash Verified 04/09/23 09:02 Antibiotics) Review of Systems Review of Systems: All other systems are reviewed and are negative Constitutional: Reports as per HPI and Reports no additional constitutional complaints Eyes: Reports as per HPI and Reports no additional eye complaints Reports system reviewed and no additional complaints, except as documented Cardiovascular: Reports as per HPI and Reports no additional cardiovascular complaints Respiratory: Reports as per HPI and Reports no additional respiratory complaints Gastrointestinal: Reports as per HPI and Reports no additional gastrointestinal complaints Genitourinary: Reports no additional female genitourinary complaints Musculoskeletal: Reports no additional musculoskeletal complaints Skin/Breast: Reports system reviewed and no additional complaints, except as docu Psychiatric: Reports no additional psychiatric complaints Endocrine: Reports no additional endocrine complaints Hematologic/Lymphatic: Reports no additional hematologic/lymphatic complaints Allergic/Immunologic: Reports no additional allergic/immunologic complaints Reports system reviewed and no additional complaints, except as documented and Reports Abnormal speech present [facility] [place] Past Medical History Medical History C. difficile colitis Crohn's disease Diabetes Endocarditis Hypertension Mitral valve prolapse Surgical History H/O colonoscopy History of hernia surgery Social History Social History Household Members: Spouse Housing: House Alcohol intake: current Alcohol intake frequency: a few times a month Patient Tobacco Use Status: Never used Tobacco service: No Physical Exam ED Vital Signs: Vital Signs - 24 hr 04/16/23 23:42 04/17/23 00:00 Temperature 99.5 F 100.8 F H Pulse Rate 83 86 Respiratory Rate 16 17 Blood Pressure 148/65 H 155/65 H Pulse Oximetry 95 95 Oxygen Delivery Method Room Air Room Air BMI result Body Mass Index 34.6 Vital signs have been reviewed as appeared to be correct. Blood pressure normal. Heart rate normal. Respiration rate normal. Temperature elevated. Oxygen saturation normal. Appearance: Alert. Oriented X3. No acute distress. Head: Normal external exam. Normocephalic. Atraumatic. No Taylor signs noted. No raccoon eyes noted Eyes: PERRLA. EOMI. Conjunctiva and sclera normal. Eyelids normal. ENT: TM's Normal. Pharynx normal. Uvula midline. Moist mucous membranes. No trismus noted. No drooling noted. No muffled voice noted. Neck: Normal inspection. Neck supple. FROM. No adenopathy. Thyroid Normal. No meningeal signs. No neck mass noted. CVS: Normal heart rate and rhythm. Heart sound normal. No murmurs noted. Pulses normal throughout. Respiratory: No respiratory distress. Painless inspiration. Breath sounds normal. No wheezes/rales/rhonchi noted. Chest nontender. No accessory muscle usage noted or decreased air movement noted. Abdomen: Soft and nontender. Bowel sounds normal in all 4 quadrants. No distention noted. No organomegaly noted. No visible injury noted. Back: No CVA tenderness. Full range of motion noted. Skin: Skin warm and dry. Normal skin color. Normal skin turgor. No rashes/lesions/lacerations noted. Extremities: No lower extremity edema. Extremities exhibit normal range of motion. Extremities nontender. Neuro: Oriented X 3. Cranial nerve exam: II-XII are grossly intact No motor deficit. No sensory deficit. Reflexes normal. Course Course Course Narrative: 62-year-old male on vancomycin for C diff colitis, patient is been having persistence of fever and leukocytosis. Will consider abdomen CT/chest x-ray today. Case signed out to to check on the above testing. Medical Decision Making Differential Diagnosis Differential Diagnoses: The differential diagnosis associated with the presentation includes (Intra-abdominal pathology, fever etiology, electrolyte abnormality, severe anemia.) Admission/Observation Consideration of admission/observation: Escalation of care including admission/observation considered Lab Data MDM Lab Attestation statement: I reviewed the patient's lab results. 04/17/23 00:08 04/17/23 00:08 Labs: Lab Results 04/17/23 04/17/23 04/17/23 Range/Units 00:08 00:08 00:18 WBC 14.5 H (4.8-10.8) X10*3/uL RBC 3.93 L (4.60-5.80) X10*6/uL Hgb 11.8 L (14.0-18.0) g/dl Hct 35.5 L (42.0-52.0) % MCV 90.3 (80.0-98.0) fL MCH 30.0 (27.0-33.0) pg MCHC 33.2 (31.0-36.0) g/dl RDW 10.9 L (11.0-16.0) % Plt Count 408 H D (160-400) X10*3/uL MPV 8.7 L (9.4-12.4) fL Immature Gran % (Auto) 0.8 H (0.0-0.4) % Neut % (Auto) 70.3 (45-73) % Lymph % (Auto) 15.7 L (20-40) % [place] % (Auto) 11.4 H (2-11) % Eos % (Auto) 1.5 (0-4) % Baso % (Auto) 0.3 (0-2) % Lymph # (Auto) 2.3 (1.2-4.9) X10*3/uL [place] # (Auto) 1.7 H (0.1-1.2) X10*3/uL Eos # (Auto) 0.2 (0.0-0.4) X10*3/uL Baso # (Auto) 0.0 (0.0-0.2) X10*3/uL Abs Immat Gran (auto) 0.11 H (0.00-0.03) X10*3/uL Absolute Neuts (auto) 10.2 H (2.0-8.3) x10*3/uL Absolute Nucleated RBC 0.000 (0.0-0.012) X10*3/uL Nucleated RBC % (auto) 0.0 (0.0-0.2) /100WBC Smear Tech's Comments VERIFIED Sodium 135 (135-145) mmol/L Potassium 3.9 (3.3-5.1) mmol/L Chloride 100 (96-108) mmol/L Carbon Dioxide 25 (22-29) mmol/L Anion Gap 14 (12-20) BUN 15 (9-16) mg/dL Creatinine 0.77 (0.5-1.4) mg/dL Estim Creat Clear Calc 110.6 Estimated GFR > 60 Random Glucose 125 H (60-115) mg/dL Calcium 9.3 D (8.4-10.2) mg/dL Lipase 20 (8-78) U/L Urine Color Yellow Urine Appearance Clear Urine pH 6.5 (5.0-9.0) Ur Specific Rawlings 1.020 (1.005-1.025) Urine Protein Negative (Neg-Trace) mg/dL Urine Glucose (UA) Negative (Negative) mg/dL Urine Ketones Negative (Negative) mg/dL Urine Blood Negative (Negative) Urine Nitrite Negative (Negative) Ur Leukocyte Esterase Trace H (Negative) Urine RBC 0-2 (0-2) /HPF Urine WBC 0-5 (0-5) /HPF Ur Squamous Epith Cells 3-5 (0-2) /HPF Urine Bacteria None Seen (None Seen) Hyaline Casts 0-2 (0-2) /LPF Independent Interpretation I performed an independent interpretation of an: Plain X-Ray (Chest:) and CT Scan (Abdomen and pelvis:) Discharge Plan Discharge Clinical Impression: C. difficile colitis Patient Disposition: Still a Patient Prescriptions: No Action atorvastatin 80 mg tablet 80 mg PO BEDTIME meloxicam 15 mg tablet 15 mg PO DAILY PRN (Reason: Back Pain) pantoprazole 40 mg tablet,delayed release (DR/EC) 40 mg PO DAILY valsartan 320 mg tablet 320 mg PO DAILY finasteride 5 mg tablet 5 mg PO DAILY ezetimibe 10 mg tablet 10 mg PO DAILY hydrochlorothiazide 12.5 mg tablet 12.5 mg PO DAILY vancomycin 125 mg capsule 125 mg PO QID Qty: 40 0RF benzonatate 100 mg Capsule 100 mg PO TID PRN (Reason: Cough) Qty: 12 0RF
--- NOTE | 2023-04-17 01:02 | PC.NURSE ---
Pt presents to ED with reports of fever and new onset RUQ pain today. Recent hospital stay dx Cdiff on abx. Denies N/V/D. Denies pain at this time. Tylenol taken last at 1700 last night. Awaiting results and MD reeval, resting comfortably on stretcher aware of plan of care.
--- NOTE | 2023-04-17 01:47 | PC.NURSE ---
Pt off floor to CT.
[2023-04-17] MEDS: iohexoL 350 MG/ML 100 ML INFUS..BTL 85 ML IV (02:18)
[2023-04-17] MEDS: Piperacillin Sodium/Tazobactam 3.375 GM in 0.9 % Sodium Chloride 50 ML IV ×3 (06:21→17:15)
--- NOTE | 2023-04-17 06:21 | PC.NURSE ---
Labs obtained by head of academic technology. IV ABX administered per OCT. MD Lewis at bedside discussing CC and treatment plan.
[2023-04-17 06:31] LABS: Lactic Acid 0.6 mmol/L (0.5-2.0)
--- NOTE | 2023-04-17 08:10 | PHA.MEDREC ---
Pharmacy Consult ? Medication Reconciliation Pharmacy has completed the medication reconciliation. Spoke to patient to confirm meds. No changes since prior discharge.
[2023-04-17] MEDS: Enoxaparin Sodium 40 MG/0.4 ML SYRINGE SUBCUT (09:55)
--- NOTE | 2023-04-17 10:01 | PC.NURSE ---
pt a&ox3. vss. pt has low grade fever (99.7). pt verbalizing 0/10 pain morgan but more generalized discomfort in his RUQ under right rib cage d/t increased amount of coughing. medication administered per provider order. call christensen within reach.
[2023-04-17] MEDS: vancomycin/NS 2,000 MG/500 ML PLAST..BAG 250 MG IV (10:21)
--- NOTE | 2023-04-17 10:27 | PC.NURSE ---
medication administered per provider order.
--- NOTE | 2023-04-17 10:50 | PHA.PROG ---
Admission Date/Time: April 17, 2023 09:33 Indication: intraabdominal infection Weight in k.1 kg Adjusted body weight in Kg: Junction body weight in Kg: Obesity Dosing Indication % IBW: Serum Creatinine - Last 168 Hours 04/17/23 00:08 Creatinine 0.77 Estimated CrCl and GFR - Last 168 Hours 04/17/23 00:08 Estim Creat Clear Calc 110.6 Estimated GFR > 60 Vancomycin Loading Dose: 2000 mg Current Vancomycin Dosing Regimen: 1500 q12h Vancomycin Monitoring using AUC goal of 400 - 600 range with trough as surrogate marker: auc 567, trough 15.7 Date and Time for next Vancomycin Level to be drawn: 04/18 @1999 Pharmacist Comments on Vancomycin Plan: Vancomycin dosing will take advantage of [employer] as a clinical decision support tool that uses Bayesian modeling to calculate individual patient's pharmacokinetic parameters and forecast the patient's drug concentration time course with the target goal AUC 24 range of 400 - 600 mg/L/hr.
[2023-04-17] MEDS: vancomycin HCL 125 MG CAPSULE PO ×3 (12:56→19:49)
--- NOTE | 2023-04-17 14:21 | P.HPHOSP_ITS ---
History of Present Illness Date of Service: 04/17/23 Chief Complaint: Fever, RUQ pain A 62 years old male with PMH of C.diff, HLD, BPH, HTN, GERD, Crohn's disease who presents to the hospital with RUQ pain and fever. The patient reports that since his discharge from the hospital on 04/09 he has been having low grade fevers on daily basis w sweating and feeling weak with associate cough sometimes. Denies any dyspnea, SOB, palpitations, chest pain, nausea, vomiting, diarrhea or urinary symptoms. Liver biopsy showed Pleosis. Cultures remained negative from prev admission. In ED found to be febrile with elevated WBCs. CT scan showed mild increase in size of liver lesion. Admitted for further evaluation and management. Review of Systems Review of Systems: reporting fever, chills or weakness No chest pain, palpitation No shortness of breath or coughing Mild RUQ abdominal pain,no nausea or vomiting No urinary symptoms No any rash or wounds PMFSH Medical History C. difficile colitis Crohn's disease Diabetes Endocarditis Hypertension Mitral valve prolapse Surgical History H/O colonoscopy History of hernia surgery Social History Household Members: Spouse Housing: House Do you presently have visiting nurse or other home services: No Alcohol intake: current Alcohol intake frequency: a few times a month Patient Tobacco Use Status: Never used Tobacco Smoked in Last 30 Days: No Use of substances other than those prescribed or required for medical reasons: No Have you been hit, kicked, punched, or otherwise hurt by someone within the past year? If so, by whom?: No Do you feel safe in your current relationship?: Yes Is there a partner from a previous relationship who is making you feel unsafe now?: No Are you made to feel afraid or neglected: No Advance Directives: No Advance Directives Information Provided: Yes Do you have thoughts of harming others: None Do you have a plan to hurt others: No Plan Recently lost weight without trying: No Eating poorly because of decreased appetite: No Nutrition Risks: No Nutritional Risk Poor oral hygiene: No service: No Meds Allergies Allergy/AdvReac Type Severity Reaction Status Date / Time Sulfa (Sulfonamide Allergy Intermediate Rash Verified 04/09/23 09:02 Antibiotics) Active Medications: Current Medications Acetaminophen (Acetaminophen 325 Mg Tablet) 650 mg PO Q6H PRN PRN Reason: Pain, Mild (Pain Scale 1-3) Atorvastatin Calcium (Atorvastatin Calcium 80 Mg Tablet) 80 mg PO BEDTIME [facility] Benzonatate (Benzonatate 100 Mg Capsule) 100 mg PO TID PRN PRN Reason: Cough Ezetimibe (Ezetimibe 10 Mg Tablet) 10 mg PO DAILY [facility] Enoxaparin Sodium (Enoxaparin Sodium 40 Mg/0.4 Ml Syringe) 40 mg SUBCUT Q24H [facility] Last Admin: 04/17/23 09:55 Dose: 40 mg Finasteride (Finasteride 5 Mg Tablet) 5 mg PO DAILY [facility] Hydrochlorothiazide (Hydrochlorothiazide 12.5 Mg Tablet) 12.5 mg PO DAILY [facility]; Protocol Piperacillin Sod/Tazobactam (Sod 3.375 gm/ Sodium Chloride) 50 mls @ 100 mls/hr IV Q6H [facility] Last Infusion: 04/17/23 13:34 Dose: Infused Vancomycin HCl 1,500 mg/ (Sodium Chloride) 500 mls @ 333.333 mls/hr IV Q12H [facility] Ondansetron HCl (Ondansetron Hcl 4 Mg/2 Ml Vial) 4 mg IVPUSH Q8H PRN PRN Reason: Nausea and Vomiting Pharmacy Consult (Consult Rx Vancomycin Dosing) 1 each MISCELLANE DAILY PRN PRN Reason: Consult order Sodium Chloride (0.9 % Sodium Chloride Flush 3 Ml Syringe) 3 ml IVFLUSH QSHIFT [facility] Last Admin: 04/17/23 12:45 Dose: Not Given Valsartan (Valsartan 320 Mg Tablet) 320 mg PO DAILY [facility]; Protocol Vancomycin HCl (Vancomycin Hcl 125 Mg Capsule) 125 mg PO QID [facility] Last Admin: 04/17/23 12:56 Dose: 125 mg Home Medications Medication Instructions Recorded Confirmed Last Taken Type atorvastatin 80 mg tablet 80 mg PO BEDTIME 04/08/23 04/17/23 04/15/23 History ezetimibe 10 mg tablet 10 mg PO DAILY 04/08/23 04/17/23 04/16/23 09:00 History finasteride 5 mg tablet 5 mg PO DAILY 04/08/23 04/17/23 04/16/23 09:00 History hydrochlorothiazide 12.5 mg tablet 12.5 mg PO DAILY 04/08/23 04/17/23 04/16/23 09:00 History meloxicam 15 mg tablet 15 mg PO DAILY PRN knee pain 04/08/23 04/17/23 04/07/23 History pantoprazole 40 mg tablet,delayed 40 mg PO DAILY@0630 04/08/23 04/17/23 04/16/23 09:00 History release valsartan 320 mg tablet 320 mg PO DAILY 04/08/23 04/17/23 04/16/23 09:00 History Physical Exam Vital Signs and Narrative: Vital Signs: Last Vital Signs Temp 99.7 F 04/17/23 09:33 Pulse 81 04/17/23 09:33 Resp 16 04/17/23 09:33 BP 139/55 L 04/17/23 09:33 Pulse Ox 94 04/17/23 09:33 O2 Del Method Room Air 04/17/23 09:33 BMI result Body Mass Index 34.6 Const: Other: Constitutional : Awake, interactive, not in distress Neck : Normal inspection, Supple Cardiovascular : RRR, no JVP, pansystolic murmur, no lower extremity edema Respiratory : good bilateral air entry, no crackles, wheezes or rhonchi Gastrointestinal: soft, lax, Normal bowel sounds, Non tenderness over RUQ Skin : Warm, Dry Neurological : Alert & oriented x3, No focal deficit Results Labs 04/17/23 00:08 04/17/23 00:08 Labs: Laboratory Results - last 24 hr 04/17/23 04/17/23 04/17/23 00:08 00:08 00:18 MCV 90.3 MCH 30.0 MCHC 33.2 RDW 10.9 L Plt Count 408 H D MPV 8.7 L Immature Gran % (Auto) 0.8 H Neut % (Auto) 70.3 Lymph % (Auto) 15.7 L [place] % (Auto) 11.4 H Eos % (Auto) 1.5 Baso % (Auto) 0.3 Lymph # (Auto) 2.3 [place] # (Auto) 1.7 H Eos # (Auto) 0.2 Baso # (Auto) 0.0 Abs Immat Gran (auto) 0.11 H Absolute Neuts (auto) 10.2 H Absolute Nucleated RBC 0.000 Nucleated RBC % (auto) 0.0 Smear Tech's Comments VERIFIED Anion Gap 14 Estim Creat Clear Calc 110.6 Estimated GFR > 60 Random Glucose 125 H Lactic Acid Calcium 9.3 D Lipase 20 Urine Color Yellow Urine Appearance Clear Urine pH 6.5 Ur Specific [place] 1.020 Urine Protein Negative Urine Glucose (UA) Negative Urine Ketones Negative Urine Blood Negative Urine Nitrite Negative Ur Leukocyte Esterase Trace H Urine RBC 0-2 Urine WBC 0-5 Ur Squamous Epith Cells 3-5 Urine Bacteria None Seen Hyaline Casts 0-2 04/17/23 06:15 MCV MCH MCHC RDW Plt Count MPV Immature Gran % (Auto) Neut % (Auto) Lymph % (Auto) [place] % (Auto) Eos % (Auto) Baso % (Auto) Lymph # (Auto) [place] # (Auto) Eos # (Auto) Baso # (Auto) Abs Immat Gran (auto) Absolute Neuts (auto) Absolute Nucleated RBC Nucleated RBC % (auto) Smear Tech's Comments Anion Gap Estim Creat Clear Calc Estimated GFR Random Glucose Lactic Acid 0.6 Calcium Lipase Urine Color Urine Appearance Urine pH Ur Specific [place] Urine Protein Urine Glucose (UA) Urine Ketones Urine Blood Urine Nitrite Ur Leukocyte Esterase Urine RBC Urine WBC Ur Squamous Epith Cells Urine Bacteria Hyaline Casts Imaging Radiologist's Impressions: Impressions Chest X-Ray 04/17/23 01:50 IMPRESSION: Low lung volumes without focal consolidation. Enlarged cardiac silhouette. Abdomen/Pelvis CT 04/17/23 02:15 IMPRESSION: 1. Heterogeneous mildly hypoattenuating lesion in the left hepatic lobe is increased in size compared to 04/08/2023, now approximately 3 cm, and is suspicious for abscess. 2. Multiple additional scattered hypoattenuating foci throughout the liver appear overall similar to 04/08/2023. These are indeterminate, and the possibility of at least one of these representing additional abscesses cannot be excluded. Assessment and Plan (1) Fever: Status: Acute (2) C. difficile colitis: Status: Acute Plan A 62 years old male with PMH of C.diff, HLD, BPH, HTN, GERD, Crohn's disease who presents to the hospital with RUQ pain and fever. SIRS Fever, Leukocytosis w possibe source of infection negative lactic acid suspected intraabdominal infection, possible liver abscess CXR negative Pending cultures Continue Zosyn and Vancomycin follow CBC Follow Vanco trough Liver lesion concerning for possible abscess Will need further eval by GI, pending consult Recent C.Diff infection No diarrhea reported Vancomycin PO Q6 HTN continue home med BPH Finasteride HLD Home meds DVT PPx Lovenox PAtient will need 2 overnight hospital stay for evaluation of fever Time Spent With Patient Time: Total time managing care of this patient today ____ minutes. Quality Stroke Does the patient have a stroke diagnosis?: No VTE Prior VTE?: No VTE Risk Level:: Medical - moderate - high VTE Device Contraindication: Treatment Not Indicated VTE Drug Contraindication: N/A - Med Ordered
--- NOTE | 2023-04-17 16:04 | P.CNID_ITS ---
History of Present Illness Data of Consult Service Date: 04/17/23 Requesting physician: Hunter Nelson Primary Care Provider: Emy Otto CNP HPI Reason for consult: possible liver abscess He presents with tmperature to 101.5 on day of admission as well as cough and vague abdominal global discomfort. He was in hospital 04/08-04/09 and had liver lesion drained and showed culture n egative and results consistent with peliosis hepatis. He has no h/o hydatid cysts or other echinococcal disease. He has no diarrhea or animal exposure to ill pets. He has temperature 101.5 and Crohns and HTN> I had seen him when in hospital 04/08 and treated for Cdiff and is still taking po Vancomycin 125 mg po qid. He has h/o endocarditis 15 years ago apparently. He has no UTI reported or other infections. Review of Systems Review of Systems: Yes all other systems are reviewed and are negative PMFSH Past Medical History Medical History C. difficile colitis Crohn's disease Diabetes Endocarditis Hypertension Mitral valve prolapse Family History Family history: reviewed and not pertinent Surgical History Surgical History H/O colonoscopy History of hernia surgery Social History Social History Household Members: Spouse Housing: House Do you presently have visiting nurse or other home services: No Alcohol intake: current Alcohol intake frequency: a few times a month Patient Tobacco Use Status: Never used Tobacco Smoked in Last 30 Days: No Use of substances other than those prescribed or required for medical reasons: No Currently Displaying Signs/Symptoms of Drug Intoxication Withdrawal: No Have you been hit, kicked, punched, or otherwise hurt by someone within the past year? If so, by whom?: No Do you feel safe in your current relationship?: Yes Is there a partner from a previous relationship who is making you feel unsafe now?: No Are you made to feel afraid or neglected: No Advance Directives: No Advance Directives Information Provided: Yes Do you have thoughts of harming others: None Do you have a plan to hurt others: No Plan Recently lost weight without trying: No Eating poorly because of decreased appetite: No Nutrition Risks: No Nutritional Risk Poor oral hygiene: No service: No Meds Allergies Allergy/AdvReac Type Severity Reaction Status Date / Time Sulfa (Sulfonamide Allergy Intermediate Rash Verified 04/09/23 09:02 Antibiotics) Active Medications: Current Medications Acetaminophen (Acetaminophen 325 Mg Tablet) 650 mg PO Q6H PRN PRN Reason: Pain, Mild (Pain Scale 1-3) Atorvastatin Calcium (Atorvastatin Calcium 80 Mg Tablet) 80 mg PO BEDTIME [facility] Benzonatate (Benzonatate 100 Mg Capsule) 100 mg PO TID PRN PRN Reason: Cough Ezetimibe (Ezetimibe 10 Mg Tablet) 10 mg PO DAILY [facility] Enoxaparin Sodium (Enoxaparin Sodium 40 Mg/0.4 Ml Syringe) 40 mg SUBCUT Q24H [facility] Last Admin: 04/17/23 09:55 Dose: 40 mg Finasteride (Finasteride 5 Mg Tablet) 5 mg PO DAILY [facility] Hydrochlorothiazide (Hydrochlorothiazide 12.5 Mg Tablet) 12.5 mg PO DAILY [facility]; Protocol Piperacillin Sod/Tazobactam (Sod 3.375 gm/ Sodium Chloride) 50 mls @ 100 mls/hr IV Q6H [facility] Last Infusion: 04/17/23 13:34 Dose: Infused Vancomycin HCl 1,500 mg/ (Sodium Chloride) 500 mls @ 333.333 mls/hr IV Q12H [facility] Ondansetron HCl (Ondansetron Hcl 4 Mg/2 Ml Vial) 4 mg IVPUSH Q8H PRN PRN Reason: Nausea and Vomiting Pharmacy Consult (Consult Rx Vancomycin Dosing) 1 each MISCELLANE DAILY PRN PRN Reason: Consult order Sodium Chloride (0.9 % Sodium Chloride Flush 3 Ml Syringe) 3 ml IVFLUSH QSHIFT [facility] Last Admin: 04/17/23 12:45 Dose: Not Given Valsartan (Valsartan 320 Mg Tablet) 320 mg PO DAILY [facility]; Protocol Vancomycin HCl (Vancomycin Hcl 125 Mg Capsule) 125 mg PO QID [facility] Last Admin: 04/17/23 12:56 Dose: 125 mg Home Medications Medication Instructions Recorded Confirmed Last Taken Type atorvastatin 80 mg tablet 80 mg PO BEDTIME 04/08/23 04/17/23 04/15/23 History ezetimibe 10 mg tablet 10 mg PO DAILY 04/08/23 04/17/23 04/16/23 09:00 History finasteride 5 mg tablet 5 mg PO DAILY 04/08/23 04/17/23 04/16/23 09:00 History hydrochlorothiazide 12.5 mg tablet 12.5 mg PO DAILY 04/08/23 04/17/23 04/16/23 09:00 History meloxicam 15 mg tablet 15 mg PO DAILY PRN knee pain 04/08/23 04/17/23 04/07/23 History pantoprazole 40 mg tablet,delayed 40 mg PO DAILY@0630 04/08/23 04/17/23 04/16/23 09:00 History release valsartan 320 mg tablet 320 mg PO DAILY 04/08/23 04/17/23 04/16/23 09:00 History Physical Exam Vital Signs: Vital Signs: Last Vital Signs Temp 97.8 F 04/17/23 15:39 Pulse 79 04/17/23 15:39 Resp 18 04/17/23 15:39 BP 151/70 H 04/17/23 15:39 Pulse Ox 97 04/17/23 15:39 O2 Del Method Room Air 04/17/23 15:39 BMI result Body Mass Index 34.6 Const: General: cooperative HEENT: Head: Yes normal to inspection Face and sinus: Yes normal facial ex am Mouth: Normal oral and palatal mucosa present Teeth and gingiva: dentition normal Eyes: General: appearance normal, both eyes and all related structures Pupils: Equal, round and reactive pupils present Resp: Effort & Inspection: normal respiratory effort Cardio: Rate: regular rate Rhythm: regular rhythm GI: Palpation (GI): Soft to palpation and nontender : General: Yes no CVA tenderness Back/Spine/Pelvis: Back: no CVA tenderness Skin: General skin exam: no rashes or lesions noted Neuro: General: moves all extremities Cranial nerves: Yes Equal, round and reactive pupils present Extrem: General: Yes normal to inspection Psych: Other: sleepy Results Labs 04/17/23 00:08 04/17/23 00:08 Labs: Short CBC 04/17/23 Range/Units 00:08 WBC 14.5 H (4.8-10.8) X10*3/uL Hgb 11.8 L (14.0-18.0) g/dl Hct 35.5 L (42.0-52.0) % Plt Count 408 H D (160-400) X10*3/uL BMP 04/17/23 00:08 Sodium 135 Potassium 3.9 Chloride 100 Carbon Dioxide 25 BUN 15 Creatinine 0.77 Calcium 9.3 D Urine 04/17/23 Range/Units 00:18 Urine Color Yellow Urine Appearance Clear Urine pH 6.5 (5.0-9.0) Ur Specific [place] 1.020 (1.005-1.025) Urine Protein Negative (Neg-Trace) mg/dL Urine Glucose (UA) Negative (Negative) mg/dL Assessment and Plan (1) Abscess of liver: Status: Acute Possible abscess or blood filled cyst. Doubt animal tapeworm (2) C. difficile colitis: Status: Acute (3) Fever: Status: Acute Plan Continue piperacillin/tazobactam and Vancomycin for now. Stop antibiotics if blood cultures negative and area thought to be just blood filled cavities (will defer to GI on this). 10 days po Vancomycin for Cdiff. Time Spent With Patient Time: Total time managing care of this patient today ____ minutes.
--- NOTE | 2023-04-17 16:50 | PM.EVENT ---
Event Note Date of Service: 04/17/23 Event Note: GI consult dictated Liver lesion is benign based on previous biopsy results. We reviewed this today. Crohns is stable off therapy. Agree with 10 day judson kim for c diff infection. Time Spent With Patient Time: Total time managing care of this patient today ____ minutes.
[2023-04-17] MEDS: Benzonatate 100 MG CAPSULE PO (19:39)
[2023-04-17] MEDS: Atorvastatin Calcium 80 MG TABLET PO (19:49)
[2023-04-17] MEDS: vancomycin HCL 1,500 MG in 0.9 % Sodium Chloride 500 ML 333.33 MG IV (23:28)
[2023-04-18] MEDS: Piperacillin Sodium/Tazobactam 3.375 GM in 0.9 % Sodium Chloride 50 ML IV ×2 (00:33→06:24)
[2023-04-18 04:00] VITALS: BP 136/67; PULSE 77; RESP 18; TEMP 36.6; O2SAT 95
--- NOTE | 2023-04-18 04:52 | CONS_ITS ---
DATE OF SERVICE: 04/17/2023 REFERRING PHYSICIAN: Hunter Nelson MD REASON FOR CONSULTATION: Crohn disease, C diff infection, and liver lesion. HISTORY OF PRESENT ILLNESS: The patient is a pleasant 62-year-old man who was admitted to the hospital after presenting to the emergency room because of complaints of right upper quadrant discomfort and fevers. He was recently hospitalized earlier in the month and was diagnosed with C diff infection. He was treated with vancomycin and discharged, but has had persistent fevers as well as sweats and yesterday had some right upper quadrant discomfort that prompted him to come to the emergency room for evaluation. 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 No infectious etiology was identified. As part of his evaluation, he underwent repeat imaging of the liver earlier today, which showed a lesion measuring up to approximately 3 cm in diameter, which was slightly increased compared to a prior exam where it was measured at 2 cm in diameter. He also has a history of Crohn disease, which has been quiescent. He did have a recent perianal fistula or abscess that drained spontaneously and did not require antibiotic treatment. Please see Dr. Evans's consult from 04/08 for details. PAST MEDICAL HISTORY: 1. Crohn disease as above, not on any therapy. 2. Biopsy of liver lesion with findings as above. 3. C diff colitis, currently on vancomycin treatment. 4. Diabetes. 5. History of endocarditis approximately 15 years ago with recent negative echocardiogram. 6. Hypertension. 7. Mitral valve prolapse. PAST SURGICAL HISTORY: Includes colonoscopy and hernia repair. CURRENT MEDICATIONS: Current medication list is reviewed in the chart. ALLERGIES: SULFA. FAMILY HISTORY: This is reviewed with the patient and is noncontributory. SOCIAL HISTORY: There is no current tobacco, alcohol, or substance abuse. REVIEW OF SYSTEMS: SKIN: No pruritus. HEENT: Negative. CARDIOPULMONARY: No shortness of breath or chest pain. GASTROINTESTINAL: As above. GENITOURINARY: Negative. NEUROPSYCHIATRIC: Negative. PHYSICAL EXAMINATION: GENERAL: Shows a pleasant male, lying comfortably in bed. VITAL SIGNS: Reviewed in electronic medical record and are stable. SKIN: Anicteric. HEENT: Shows no scleral icterus. NECK: Without lymphadenopathy or thyromegaly. LUNGS: Clear. HEART: Shows regular rate and rhythm. S1, S2. No murmur. ABDOMEN: Soft without focal masses or tenderness. Bowel sounds are present. No organomegaly is noted. EXTREMITIES: Without edema. DIAGNOSTIC DATA: Laboratory data including imaging studies and blood work are reviewed. IMPRESSION: 1. Liver lesion (peliosis hepatis). 2. Crohn disease. 3. Clostridium difficile infection. At this point, he seems stable with no evidence of ongoing active GI issues. His liver lesion enlargement may be explained by having had recent biopsy and does not appear to be infectious based on the biopsy results and reviewed the benign nature of peliosis today. His Crohn disease is quiescent and he is not on any therapy. His C diff infection is currently being treated. I would recommend continuing vancomycin for a 10-day course as previously outlined. Thank you for asking me to see him. I will follow him in the hospital with you. MD SAGAR Gutierrez/ANUM / [phone]
[2023-04-18 06:30] LABS: Basophils Absolute Auto 0.1 X10*3/uL (0.0-0.2); Basophils Percent Auto 0.4 % (0-2); Eosinophils Absolute Auto 0.2 X10*3/uL (0.0-0.4); Eosinophils Percent Auto 1.1 % (0-4); Hematocrit 35.8 % (42.0-52.0); Hemoglobin 11.7 g/dl (14.0-18.0); Imm Gran Pct Auto 0.7 % (0.0-0.4); Lymphocytes Absolute Auto 2.1 X10*3/uL (1.2-4.9); Lymphocytes Percent Auto 14.7 % (20-40); MANUAL DIFF FLAG SCAN; Mean Corpuscular HGB Conc 32.7 g/dl (31.0-36.0); Mean Corpuscular Hemoglobin 29.7 pg (27.0-33.0); Mean Corpuscular Volume 90.9 fL (80.0-98.0); Mean Platelet Volume 8.6 fL (9.4-12.4); Monocytes Absolute Auto 1.7 X10*3/uL (0.1-1.2); Monocytes Percent Auto 11.9 % (2-11); Neutrophils Absolute Auto 10.2 x10*3/uL (2.0-8.3); Neutrophils Percent Auto 71.2 % (45-73); Platelet Count 365 X10*3/uL (160-400); Red Blood Count 3.94 X10*6/uL (4.60-5.80); SCAN SMEAR FLAG 1; White Blood Count 14.2 X10*3/uL (4.8-10.8)
[2023-04-18 06:36] LABS: INTERNATIONAL NORM RATIO 1.4 (0.9-1.1); Prothrombin Time 17.2 SEC (11.1-13.3)
[2023-04-18 06:37] LABS: Hematocrit 35.1 % (42.0-52.0); Hemoglobin 11.5 g/dl (14.0-18.0); Mean Corpuscular HGB Conc 32.8 g/dl (31.0-36.0); Mean Corpuscular Hemoglobin 29.6 pg (27.0-33.0); Mean Corpuscular Volume 90.5 fL (80.0-98.0); Mean Platelet Volume 8.7 fL (9.4-12.4); Platelet Count 364 X10*3/uL (160-400); Red Blood Count 3.88 X10*6/uL (4.60-5.80); Red Cell Distribution Width 11.1 % (11.0-16.0); White Blood Count 14.6 X10*3/uL (4.8-10.8)
[2023-04-18 06:45] LABS: Alanine Aminotransferase 46 U/L (0-40); Albumin Level 3.3 g/dL (3.5-5.0); Alkaline Phosphatase 89 U/L (39-117); Anion Gap 12 (12-20); Aspartate Amino Transferase 30 U/L (5-37); Bilirubin Direct 0.4 mg/dL (0.0-0.5); Blood Urea Nitrogen 13 mg/dL (9-16); C Reactive Protein 10.76 mg/dL (< or = 0.50); Carbon Dioxide 25 mmol/L (22-29); Chloride 102 mmol/L (96-108); Creatinine Clr Calc Pharmacy 101.4; Estimated Glomerular Filt Rate > 60; Glucose Random 151 mg/dL (60-115); Potassium 4.1 mmol/L (3.3-5.1); Sodium 135 mmol/L (135-145); Total Protein 7.1 g/dL (6.5-8.0)
[2023-04-18 07:09] LABS: SLIDE REVIEW VERIFIED
[2023-04-18 07:20] LABS: Erythrocyte Sedimentation Rate 88 MM/HR (0-15)
[2023-04-18 07:43] VITALS: BP 133/71; PULSE 85; RESP 16; TEMP 36.5; O2SAT 94
[2023-04-18] MEDS: hydroCHLOROthiazide 12.5 MG TABLET PO (08:29)
[2023-04-18] MEDS: Valsartan 320 MG TABLET PO (08:30)
[2023-04-18] MEDS: Ezetimibe 10 MG TABLET PO (08:30)
[2023-04-18] MEDS: vancomycin HCL 125 MG CAPSULE PO ×4 (08:30→21:17)
[2023-04-18] MEDS: Finasteride 5 MG TABLET PO (08:30)
[2023-04-18] MEDS: vancomycin HCL 1,500 MG in 0.9 % Sodium Chloride 500 ML 333.33 MG IV (08:42)
--- NOTE | 2023-04-18 09:35 | PM.GIPN ---
Subjective Subjective Date of Service: 04/18/23 Interval History: feels well no pain no fever overnight tolerating diet without difficulty Critical Care Time (minutes): 0 Physical Exam Vital Signs: Vital Signs: Last Vital Signs Temp 97.7 F 04/18/23 07:43 Pulse 85 04/18/23 07:43 Resp 16 04/18/23 07:43 BP 133/71 04/18/23 07:43 Pulse Ox 94 04/18/23 07:43 O2 Del Method Room Air 04/18/23 07:43 BMI result Body Mass Index 34.6 GI: Other: abdomen is soft and nontender Objective Data Labs 04/18/23 06:10 04/18/23 06:10 Microbiology Microbiology Results: Microbiology 04/17/23 06:15 Blood - Arterial Blood Culture - Preliminary No growth after 24 hours. 04/17/23 06:15 Blood - Arterial Blood Culture - Preliminary No growth after 24 hours. Procedures Date of Service Date of Service: 04/18/23 Progress Note: A&P Assessment and plan (1) C. difficile colitis: Status: Acute Plan I recommend continuing vancomycin to complete a 10 day course. I have advised Mr Dalton to follow up with Dr Manley as an outpatient. Please call with any questions. Time Spent With Patient Time: Total time managing care of this patient today ____ minutes. Quality Stroke Does the patient have a stroke diagnosis?: No VTE Prior VTE?: No VTE Risk Level:: Medical - moderate - high VTE Device Contraindication: Treatment Not Indicated VTE Drug Contraindication: N/A - Med Ordered
--- NOTE | 2023-04-18 09:37 | MHC.CM.PN ---
PT REPORTS HE LIVES WITH HIS AND IS INDEPENDENT WITH CARE HE DENIES HAVING HOME SERVICES HE HAS A CPAP FOR DME PT SAYS HE HAS A HCP NAMING HIS HIS AGENT-COPY REQUESTED PCP: ANA ROMEO DCP: HOME NO SERVICES VIA PRIVATE TRANSPORT
--- NOTE | 2023-04-18 10:35 | P.PNIM_ITS ---
Subjective Subjective Date of Service: 04/18/23 Interval History: Feels better overall No fever or sweating overnight To do Liver biopsy today kept NPO this morning Physical Exam Vital Signs: Vital Signs: Last Vital Signs Temp 97.7 F 04/18/23 07:43 Pulse 85 04/18/23 07:43 Resp 16 04/18/23 07:43 BP 133/71 04/18/23 07:43 Pulse Ox 94 04/18/23 07:43 O2 Del Method Room Air 04/18/23 07:43 BMI result Body Mass Index 34.6 Const: Other: Constitutional : Awake, interactive, not in distress Neck : Normal inspection, Supple Cardiovascular : RRR, no JVP, pansystolic murmur, no lower extremity edema Respiratory : good bilateral air entry, no crackles, wheezes or rhonchi Gastrointestinal: soft, lax, Normal bowel sounds, No tenderness over RUQ Skin : Warm, Dry Neurological : Alert & oriented x3, No focal deficit Objective Data Active Medications Acetaminophen (Acetaminophen 325 Mg Tablet) 650 mg PO Q6H PRN PRN Reason: Pain, Mild (Pain Scale 1-3) Atorvastatin Calcium (Atorvastatin Calcium 80 Mg Tablet) 80 mg PO BEDTIME [facility] Last Admin: 04/17/23 19:49 Dose: 80 mg Documented By: JUAN DIEGO Benzonatate (Benzonatate 100 Mg Capsule) 100 mg PO TID PRN PRN Reason: Cough Last Admin: 04/17/23 19:39 Dose: 100 mg Documented By: JUAN DIEGO Ezetimibe (Ezetimibe 10 Mg Tablet) 10 mg PO DAILY [facility] Last Admin: 04/18/23 08:30 Dose: 10 mg Documented By: JOSE Finasteride (Finasteride 5 Mg Tablet) 5 mg PO DAILY [facility] Last Admin: 04/18/23 08:30 Dose: 5 mg Documented By: JOSE Hydrochlorothiazide (Hydrochlorothiazide 12.5 Mg Tablet) 12.5 mg PO DAILY [facility]; Protocol Last Admin: 04/18/23 08:29 Dose: 12.5 mg Documented By: JOSE Phytonadione 10 mg/ Sodium (Chloride) 51 mls @ 51 mls/hr IV ONCE ONE Stop: 04/18/23 10:36 Ondansetron HCl (Ondansetron Hcl 4 Mg/2 Ml Vial) 4 mg IVPUSH Q8H PRN PRN Reason: Nausea and Vomiting Pharmacy Consult (Consult Rx Vancomycin Dosing) 1 each MISCELLANE DAILY PRN PRN Reason: Consult order Sodium Chloride (0.9 % Sodium Chloride Flush 3 Ml Syringe) 3 ml IVFLUSH QSHIFT [facility] Last Admin: 04/18/23 08:30 Dose: Not Given Documented By: JOSE Non-Admin Reason: IV Running Valsartan (Valsartan 320 Mg Tablet) 320 mg PO DAILY [facility]; Protocol Last Admin: 04/18/23 08:30 Dose: 320 mg Documented By: JOSE Vancomycin HCl (Vancomycin Hcl 125 Mg Capsule) 125 mg PO QID [facility] Last Admin: 04/18/23 08:30 Dose: 125 mg Documented By: JOSE Labs 04/18/23 06:10 04/18/23 06:10 Labs: Laboratory Results - last 24 hr 04/18/23 04/18/23 04/18/23 06:10 06:10 06:10 MCV 90.5 MCH 29.6 MCHC 32.8 RDW 11.1 Plt Count 364 MPV 8.7 L Immature Gran % (Auto) Neut % (Auto) Lymph % (Auto) [place] % (Auto) Eos % (Auto) Baso % (Auto) Lymph # (Auto) [place] # (Auto) Eos # (Auto) Baso # (Auto) Abs Immat Gran (auto) Absolute Neuts (auto) Absolute Nucleated RBC 0.000 Nucleated RBC % (auto) 0.0 Smear Tech's Comments ESR 88 H PT INR Anion Gap 12 Estim Creat Clear Calc 101.4 Estimated GFR > 60 Random Glucose 151 H Calcium 9.0 Total Bilirubin 1.0 Direct Bilirubin 0.4 AST 30 ALT 46 H Alkaline Phosphatase 89 C-Reactive Protein 10.76 H Total Protein 7.1 Albumin 3.3 L 04/18/23 04/18/23 06:10 06:10 MCV 90.9 MCH 29.7 MCHC 32.7 RDW 11.0 Plt Count 365 MPV 8.6 L Immature Gran % (Auto) 0.7 H Neut % (Auto) 71.2 Lymph % (Auto) 14.7 L [place] % (Auto) 11.9 H Eos % (Auto) 1.1 Baso % (Auto) 0.4 Lymph # (Auto) 2.1 [place] # (Auto) 1.7 H Eos # (Auto) 0.2 Baso # (Auto) 0.1 Abs Immat Gran (auto) 0.10 H Absolute Neuts (auto) 10.2 H Absolute Nucleated RBC 0.000 Nucleated RBC % (auto) 0.0 Smear Tech's Comments VERIFIED ESR PT 17.2 H INR 1.4 H Anion Gap Estim Creat Clear Calc Estimated GFR Random Glucose Calcium Total Bilirubin Direct Bilirubin AST ALT Alkaline Phosphatase C-Reactive Protein Total Protein Albumin Microbiology Microbiology Results: Microbiology 04/17/23 06:15 Blood Culture - Preliminary Blood - Arterial No growth after 24 hours. 04/17/23 06:15 Blood Culture - Preliminary Blood - Arterial No growth after 24 hours. Assessment and Plan (1) C. difficile colitis: Status: Acute (2) Liver lesion: Status: Acute Plan A 62 years old male with PMH of C.diff, HLD, BPH, HTN, GERD, Crohn's disease who presents to the hospital with RUQ pain and fever. SIRS on presentation No fever overnight negative lactic acid suspected intraabdominal infection, possible liver abscess CXR negative Pending cultures Hold on Zosyn and Vancomycin To do Liver biopsy ID rec to hold Abx follow CBC Liver lesion CT scan showing enlarging in size lesion concerning for possible abscess GI following, repeat biopsy , hold Abx Recent C.Diff infection No diarrhea reported Continue Vancomycin PO Q6 HTN continue home med BPH Finasteride HLD Home meds DVT PPx Lovenox PAtient will nee overnight hospital stay for evaluation of fever Time Spent With Patient Time: Total time managing care of this patient today ____ minutes. Quality Stroke Does the patient have a stroke diagnosis?: No VTE Prior VTE?: No VTE Risk Level:: Medical - moderate - high VTE Device Contraindication: Treatment Not Indicated VTE Drug Contraindication: N/A - Med Ordered
[2023-04-18] MEDS: Phytonadione (Vit K1) 10 MG in 0.9 % Sodium Chloride 50 ML 51 MG IV (12:05)
[2023-04-18] MEDS: LORazepam 0.5 MG TABLET PO (13:09)
[2023-04-18 13:59] LABS: Glucose, Whole Blood 120 mg/dL (60-115)
--- NOTE | 2023-04-18 14:28 | PC.NURSE ---
Report from [facility] RN that patient is currently on contact precautions for Cdif. Report given to [facility].
[2023-04-18 16:37] VITALS: BP 147/72; PULSE 89; RESP 20; TEMP 37.7; O2SAT 95
[2023-04-18] MEDS: Acetaminophen 325 MG TABLET 650 MG PO (16:48)
[2023-04-18 16:52] VITALS: BP 155/81; PULSE 94; RESP 20; TEMP 37.7; O2SAT 95
[2023-04-18 17:19] VITALS: BP 153/72; PULSE 104; RESP 16; TEMP 37.1; O2SAT 95
[2023-04-18 19:31] VITALS: BP 136/65; PULSE 89; RESP 18; TEMP 36.8; O2SAT 95
[2023-04-18 20:50] LABS: Vancomycin Trough 7.7 mcg/mL (10.0-20.0)
[2023-04-18] MEDS: traMADoL HCL 50 MG TABLET PO (21:17)
[2023-04-18] MEDS: Atorvastatin Calcium 80 MG TABLET PO (21:17)
[2023-04-18] MEDS: 0.9 % Sodium Chloride Flush 3 ML SYRINGE IVFLUSH (21:19)
[2023-04-19 03:18] VITALS: BP 139/70; PULSE 91; RESP 18; TEMP 37.1; O2SAT 97
[2023-04-19 05:39] LABS: Hematocrit 35.7 % (42.0-52.0); Hemoglobin 11.6 g/dl (14.0-18.0); Mean Corpuscular HGB Conc 32.5 g/dl (31.0-36.0); Mean Corpuscular Hemoglobin 29.3 pg (27.0-33.0); Mean Corpuscular Volume 90.2 fL (80.0-98.0); Mean Platelet Volume 8.8 fL (9.4-12.4); Platelet Count 395 X10*3/uL (160-400); Red Blood Count 3.96 X10*6/uL (4.60-5.80); Red Cell Distribution Width 11.1 % (11.0-16.0); White Blood Count 15.4 X10*3/uL (4.8-10.8)
[2023-04-19 06:00] LABS: Anion Gap 13 (12-20); Blood Urea Nitrogen 18 mg/dL (9-16); Calcium 8.9 mg/dL (8.4-10.2); Carbon Dioxide 25 mmol/L (22-29); Chloride 101 mmol/L (96-108); Creatinine Clr Calc Pharmacy 105.2; Estimated Glomerular Filt Rate > 60; Glucose Random 143 mg/dL (60-115); Potassium 3.9 mmol/L (3.3-5.1); Sodium 135 mmol/L (135-145)
[2023-04-19] MEDS: Acetaminophen 325 MG TABLET 650 MG PO ×3 (07:23→19:24)
[2023-04-19 07:41] VITALS: BP 133/67; PULSE 85; RESP 18; TEMP 36.2; O2SAT 92
[2023-04-19] MEDS: Finasteride 5 MG TABLET PO (08:34)
[2023-04-19] MEDS: hydroCHLOROthiazide 12.5 MG TABLET PO (08:34)
[2023-04-19] MEDS: Ezetimibe 10 MG TABLET PO (08:35)
[2023-04-19] MEDS: vancomycin HCL 125 MG CAPSULE PO ×4 (08:35→19:24)
[2023-04-19] MEDS: 0.9 % Sodium Chloride Flush 3 ML SYRINGE IVFLUSH ×3 (08:35→20:26)
[2023-04-19] MEDS: Valsartan 320 MG TABLET PO (08:35)
--- NOTE | 2023-04-19 11:32 | MHC.IC ---
Positive for CDIFF last admission, please maintain CDIFF precautions.
--- NOTE | 2023-04-19 11:54 | HO.PM.IMPN ---
Subjective Subjective Date of Service: 04/19/23 Interval History: Feels better overall reporting RUQ pain No fever or sweating overnight Prelim negative cx from biopsy of liver Review of Systems Review of Systems: Yes all other systems are reviewed and are negative Physical Exam Vital Signs: Vital Signs: Last Vital Signs Temp 97.1 F 04/19/23 07:41 Pulse 85 04/19/23 07:41 Resp 18 04/19/23 07:41 BP 133/67 04/19/23 07:41 Pulse Ox 92 04/19/23 07:41 O2 Del Method Room Air 04/19/23 07:41 BMI result Body Mass Index 34.6 Const: Other: Constitutional : Awake, interactive, not in distress Neck : Normal inspection, Supple Cardiovascular : RRR, no JVP, pansystolic murmur, no lower extremity edema Respiratory : good bilateral air entry, no crackles, wheezes or rhonchi Gastrointestinal: soft, lax, Normal bowel sounds, No tenderness over RUQ Skin : Warm, Dry Neurological : Alert & oriented x3, No focal deficit Objective Data Active Medications Acetaminophen (Acetaminophen 325 Mg Tablet) 650 mg PO Q6H PRN PRN Reason: Pain, Mild (Pain Scale 1-3) Last Admin: 04/19/23 07:23 Dose: 650 mg Documented By: JOSE Atorvastatin Calcium (Atorvastatin Calcium 80 Mg Tablet) 80 mg PO BEDTIME [facility] Last Admin: 04/18/23 21:17 Dose: 80 mg Documented By: JUAN DIEGO Benzonatate (Benzonatate 100 Mg Capsule) 100 mg PO TID PRN PRN Reason: Cough Last Admin: 04/17/23 19:39 Dose: 100 mg Documented By: JUAN IDEGO Ezetimibe (Ezetimibe 10 Mg Tablet) 10 mg PO DAILY [facility] Last Admin: 04/19/23 08:35 Dose: 10 mg Documented By: JOSE Finasteride (Finasteride 5 Mg Tablet) 5 mg PO DAILY [facility] Last Admin: 04/19/23 08:34 Dose: 5 mg Documented By: JOSE Hydrochlorothiazide (Hydrochlorothiazide 12.5 Mg Tablet) 12.5 mg PO DAILY [facility]; Protocol Last Admin: 04/19/23 08:34 Dose: 12.5 mg Documented By: JOSE Ondansetron HCl (Ondansetron Hcl 4 Mg/2 Ml Vial) 4 mg IVPUSH Q8H PRN PRN Reason: Nausea and Vomiting Pharmacy Consult (Consult Rx Vancomycin Dosing) 1 each MISCELLANE DAILY PRN PRN Reason: Consult order Sodium Chloride (0.9 % Sodium Chloride Flush 3 Ml Syringe) 3 ml IVFLUSH QSHIFT [facility] Last Admin: 04/19/23 08:35 Dose: 3 ml Documented By: JOSE Valsartan (Valsartan 320 Mg Tablet) 320 mg PO DAILY [facility]; Protocol Last Admin: 04/19/23 08:35 Dose: 320 mg Documented By: JOSE Vancomycin HCl (Vancomycin Hcl 125 Mg Capsule) 125 mg PO QID [facility] Last Admin: 04/19/23 08:35 Dose: 125 mg Documented By: JOSE Labs 04/19/23 05:03 04/19/23 05:03 Labs: Laboratory Results - last 24 hr 04/18/23 04/18/23 04/19/23 13:54 20:17 05:03 MCV 90.2 MCH 29.3 MCHC 32.5 RDW 11.1 Plt Count 395 MPV 8.8 L Absolute Nucleated RBC 0.000 Nucleated RBC % (auto) 0.0 Anion Gap Estim Creat Clear Calc Estimated GFR POC Glucose 120 H Random Glucose Calcium Vancomycin Trough 7.7 L 04/19/23 05:03 MCV MCH MCHC RDW Plt Count MPV Absolute Nucleated RBC Nucleated RBC % (auto) Anion Gap 13 Estim Creat Clear Calc 105.2 Estimated GFR > 60 POC Glucose Random Glucose 143 H Calcium 8.9 Vancomycin Trough Microbiology Microbiology Results: Microbiology 04/18/23 16:16 Gram Stain - Final Liver Routine Culture - Preliminary No growth to date. Anaerobic Culture - Preliminary No growth to date. 04/17/23 06:15 Blood Culture - Preliminary Blood - Arterial No growth after 48 hours. 04/17/23 06:15 Blood Culture - Preliminary Blood - Arterial No growth after 48 hours. Assessment and Plan (1) C. difficile colitis: Status: Acute (2) Liver lesion: Status: Acute Plan A 62 years old male with PMH of C.diff, HLD, BPH, HTN, GERD, Crohn's disease who presents to the hospital with RUQ pain and fever. SIRS on presentation No fever overnight negative lactic acid suspected intraabdominal infection, possible liver abscess , CDiff colitis CXR negative Pending liver bx cultures Hold on Zosyn and Vancomycin Liver biopsy results pending ID rec to hold Abx follow CBC Liver lesion CT scan showing enlarging in size lesion concerning for possible abscess GI following, repeat biopsy , hold Abx Recent C.Diff infection No diarrhea reported Continue Vancomycin PO Q6 HTN continue home med BPH Finasteride HLD Home meds DVT PPx Lovenox PAtient will nee overnight hospital stay for evaluation of SIRS pending cultures results Time Spent With Patient Time: Total time managing care of this patient today ____ minutes. Quality Stroke Does the patient have a stroke diagnosis?: No VTE Prior VTE?: No VTE Risk Level:: Medical - moderate - high VTE Device Contraindication: Treatment Not Indicated VTE Drug Contraindication: N/A - Med Ordered
[2023-04-19] MEDS: vancomycin/NS 2,000 MG/500 ML PLAST..BAG 250 MG IV (14:05)
[2023-04-19 14:59] LABS: Adenovirus PCR Not Detected (Not Detect.); Bordetella parapertussis PCR Not Detected (Not Detect.); Bordetella pertussis PCR Not Detected (Not Detect.); Chlamydia pneumoniae PCR Not Detected (Not Detect.); Coronavirus 229E PCR Not Detected (Not Detect.); Coronavirus HKU1 PCR Not Detected (Not Detect.); Coronavirus NL63 PCR Not Detected (Not Detect.); Coronavirus OC43 PCR Not Detected (Not Detect.); Human metapneumovirus PCR Not Detected (Not Detect.); Influenza A PCR Not Detected (Not Detect.); Influenza B PCR Not Detected (Not Detect.); Mycoplasma pneumoniae PCR Not Detected (Not Detect.); Parainfluenza 1 PCR Not Detected (Not Detect.); Parainfluenza 2 PCR Not Detected (Not Detect.); Parainfluenza 3 PCR Not Detected (Not Detect.); Parainfluenza 4 PCR Not Detected (Not Detect.); RSV PCR Not Detected (Not Detect.); Rhino/Enterovirus PCR Not Detected (Not Detect.); SARS-CoV-2 PCR Not Detected (Not Detect.)
[2023-04-19 15:17] VITALS: BP 133/69; PULSE 77; RESP 18; TEMP 37.1; O2SAT 94
[2023-04-19] MEDS: Benzonatate 100 MG CAPSULE PO (19:24)
[2023-04-19] MEDS: Atorvastatin Calcium 80 MG TABLET PO (19:24)
[2023-04-19 19:25] VITALS: BP 146/70; PULSE 79; RESP 18; TEMP 37.2; O2SAT 95
--- NOTE | 2023-04-19 20:36 | PM.GIPN ---
Subjective Subjective Date of Service: 04/19/23 Interval History: He c/o some intermittent RUQ pain. He has been afebrile > 24 hours. Eating OK. Denies any diarrhea, N/V, or any other abdominal pains. Critical Care Time (minutes): 0 Physical Exam Vital Signs: Vital Signs: Last Vital Signs Temp 99.0 F 04/19/23 19:25 Pulse 79 04/19/23 19:25 Resp 18 04/19/23 19:25 BP 146/70 H 04/19/23 19:25 Pulse Ox 95 04/19/23 19:25 O2 Del Method Room Air 04/19/23 19:25 BMI result Body Mass Index 34.6 Const: General: cooperative, healthy appearing, comfortable, no acute distress, well developed, alert and awake Nutritional Appearance: well nourished Orientation/consciousness: patient oriented x3 Eyes: Sclerae: sclerae normal GI: Other: Abd-soft, Nondistended, mild RUQ tenderness, no rebound Neuro: General: patient oriented x3 Objective Data Labs 04/19/23 05:03 04/19/23 05:03 Labs: Laboratory Results - last 24 hr 04/18/23 04/19/23 04/19/23 20:17 05:03 05:03 WBC 15.4 H RBC 3.96 L Hgb 11.6 L Hct 35.7 L MCV 90.2 MCH 29.3 MCHC 32.5 RDW 11.1 Plt Count 395 MPV 8.8 L Absolute Nucleated RBC 0.000 Nucleated RBC % (auto) 0.0 Sodium 135 Potassium 3.9 Chloride 101 Carbon Dioxide 25 Anion Gap 13 BUN 18 H Creatinine 0.81 Estim Creat Clear Calc 105.2 Estimated GFR > 60 Random Glucose 143 H Calcium 8.9 Vancomycin Trough 7.7 L Respiratory Panel Pradhan Adenovirus (Rapid PCR) B.pert (TEM-PCR) B.parapertussis DNA PCR C. pneumoniae DNA (PCR) Coronavirus OC43 (PCR) Coronavirus HKU1 (PCR) Coronavirus 229E (PCR) Coronavirus NL63 (PCR) Human Metapneumovir PCR Influenza A (RT-PCR) Influenza B (RT-PCR) M. pneumoniae (PCR) Parainfluenza 1 (PCR) Parainfluenza 2 (PCR) Parainfluenza 3 (PCR) Parainfluenza 4 (PCR) RSV (PCR) Entero/Rhino (PCR) SARS-CoV-2 RNA (RT-PCR) 04/19/23 Unknown WBC RBC Hgb Hct MCV MCH MCHC RDW Plt Count MPV Absolute Nucleated RBC Nucleated RBC % (auto) Sodium Potassium Chloride Carbon Dioxide Anion Gap BUN Creatinine Estim Creat Clear Calc Estimated GFR Random Glucose Calcium Vancomycin Trough Respiratory Panel Pradhan See Note Adenovirus (Rapid PCR) Not Detected B.pert (TEM-PCR) Not Detected B.parapertussis DNA PCR Not Detected C. pneumoniae DNA (PCR) Not Detected Coronavirus OC43 (PCR) Not Detected Coronavirus HKU1 (PCR) Not Detected Coronavirus 229E (PCR) Not Detected Coronavirus NL63 (PCR) Not Detected Human Metapneumovir PCR Not Detected Influenza A (RT-PCR) Not Detected Influenza B (RT-PCR) Not Detected M. pneumoniae (PCR) Not Detected Parainfluenza 1 (PCR) Not Detected Parainfluenza 2 (PCR) Not Detected Parainfluenza 3 (PCR) Not Detected Parainfluenza 4 (PCR) Not Detected RSV (PCR) Not Detected Entero/Rhino (PCR) Not Detected SARS-CoV-2 RNA (RT-PCR) Not Detected Microbiology Microbiology Results: Microbiology Gram stain with Gm + Cocci and PMN's 04/18/23 16:16 Liver Gram Stain - Final 04/18/23 16:16 Liver Routine Culture - Preliminary No growth to date. 04/18/23 16:16 Liver Anaerobic Culture - Preliminary No growth to date. 04/17/23 06:15 Blood - Arterial Blood Culture - Preliminary No growth after 48 hours. 04/17/23 06:15 Blood - Arterial Blood Culture - Preliminary No growth after 48 hours. Procedures Date of Service Date of Service: 04/19/23 Progress Note: A&P Assessment and plan (1) Abscess of liver: Status: Acute (2) Crohn's disease: Status: Acute (3) C. difficile diarrhea: Status: Acute Plan Imp/Recs: 1. Liver abscess-clinically stable on IV Vanco for possible Staph or Enteroccal infection. Hopefully the culture will grow out a specific organism. Sources of the liver abscess would include a GI or source. I would recommend continued treatment with IV Vanco, and then repeat CT early in the week to determine whether a drain is needed depending on the size of the abscess and his clinical course regarding his WBC, temperature curve, etc. 2. Crohn's disease-clinically stable and inactive at this time. Although his initial presentation with the presumed perianal abscess that spontaneously drained may very well have been the source of the hepatic abscess. Observe. 3. C.diff-asymptomatic. Complete 10 day course of po Vanco. D/W patient in detail. He is comfortable with this plan. Thanks Time Spent With Patient Time: Total time managing care of this patient today ____ minutes. Quality Stroke Does the patient have a stroke diagnosis?: No VTE Prior VTE?: No VTE Risk Level:: Medical - moderate - high VTE Device Contraindication: Treatment Not Indicated VTE Drug Contraindication: N/A - Med Ordered
[2023-04-20] MEDS: vancomycin HCL 1,250 MG in 0.9 % Sodium Chloride 250 ML 166.67 MG IV ×3 (03:24→22:40)
[2023-04-20 03:31] VITALS: BP 141/69; PULSE 80; RESP 18; TEMP 37; O2SAT 93
[2023-04-20 05:56] LABS: MANUAL DIFF FLAG NO
[2023-04-20 05:59] LABS: Basophils Absolute Auto 0.1 X10*3/uL (0.0-0.2); Basophils Percent Auto 0.4 % (0-2); Eosinophils Absolute Auto 0.2 X10*3/uL (0.0-0.4); Eosinophils Percent Auto 1.8 % (0-4); Hematocrit 34.7 % (42.0-52.0); Hemoglobin 11.5 g/dl (14.0-18.0); Imm Gran Abs Auto 0.08 X10*3/uL (0.00-0.03); Imm Gran Pct Auto 0.6 % (0.0-0.4); Lymphocytes Absolute Auto 1.8 X10*3/uL (1.2-4.9); Lymphocytes Percent Auto 14.1 % (20-40); Mean Corpuscular HGB Conc 33.1 g/dl (31.0-36.0); Mean Corpuscular Hemoglobin 29.4 pg (27.0-33.0); Mean Corpuscular Volume 88.7 fL (80.0-98.0); Mean Platelet Volume 8.6 fL (9.4-12.4); Monocytes Absolute Auto 1.4 X10*3/uL (0.1-1.2); Monocytes Percent Auto 11.2 % (2-11); Neutrophils Absolute Auto 9.1 x10*3/uL (2.0-8.3); Neutrophils Percent Auto 71.9 % (45-73); Platelet Count 406 X10*3/uL (160-400); Red Blood Count 3.91 X10*6/uL (4.60-5.80); White Blood Count 12.7 X10*3/uL (4.8-10.8)
[2023-04-20 06:03] LABS: INTERNATIONAL NORM RATIO 1.4 (0.9-1.1); Prothrombin Time 17.3 SEC (11.1-13.3)
[2023-04-20 06:20] LABS: Alanine Aminotransferase 59 U/L (0-40); Albumin Level 3.2 g/dL (3.5-5.0); Alkaline Phosphatase 112 U/L (39-117); Aspartate Amino Transferase 38 U/L (5-37); Bilirubin Direct 0.5 mg/dL (0.0-0.5); Bilirubin Total 0.8 mg/dL (0.0-1.0); Creatinine Clr Calc Pharmacy 107.8; Estimated Glomerular Filt Rate > 60; Total Protein 7.1 g/dL (6.5-8.0)
[2023-04-20 07:19] VITALS: BP 131/66; PULSE 83; RESP 16; TEMP 37.2; O2SAT 94
[2023-04-20] MEDS: Finasteride 5 MG TABLET PO (07:50)
[2023-04-20] MEDS: hydroCHLOROthiazide 12.5 MG TABLET PO (07:50)
[2023-04-20] MEDS: vancomycin HCL 125 MG CAPSULE PO ×4 (07:50→20:53)
[2023-04-20] MEDS: 0.9 % Sodium Chloride Flush 3 ML SYRINGE IVFLUSH ×3 (07:50→20:54)
[2023-04-20] MEDS: Valsartan 320 MG TABLET PO (07:50)
[2023-04-20] MEDS: Ezetimibe 10 MG TABLET PO (07:50)
[2023-04-20] MEDS: Acetaminophen 325 MG TABLET 650 MG PO ×2 (07:57→16:53)
--- NOTE | 2023-04-20 10:52 | HO.PM.IMPN ---
Subjective Subjective Date of Service: 04/20/23 Interval History: Feels better overall WBCs trending down still reporting mild RUQ pain No fever or sweating overnight Review of Systems Review of Systems: Yes all other systems are reviewed and are negative Physical Exam Vital Signs: Vital Signs: Last Vital Signs Temp 98.9 F 04/20/23 07:19 Pulse 83 04/20/23 07:19 Resp 16 04/20/23 07:19 BP 131/66 04/20/23 07:19 Pulse Ox 94 04/20/23 07:19 O2 Del Method Room Air 04/20/23 07:19 BMI result Body Mass Index 34.6 Const: Other: Constitutional : Awake, interactive, not in distress Neck : Normal inspection, Supple Cardiovascular : RRR, no JVP, pansystolic murmur, no lower extremity edema Respiratory : good bilateral air entry, no crackles, wheezes or rhonchi Gastrointestinal: soft, lax, Normal bowel sounds, RUQ tenderness Skin : Warm, Dry Neurological : Alert & oriented x3, No focal deficit Objective Data Active Medications Acetaminophen (Acetaminophen 325 Mg Tablet) 650 mg PO Q6H PRN PRN Reason: Pain, Mild (Pain Scale 1-3) Last Admin: 04/20/23 07:57 Dose: 650 mg Documented By: MICHELE Atorvastatin Calcium (Atorvastatin Calcium 80 Mg Tablet) 80 mg PO BEDTIME [facility] Last Admin: 04/19/23 19:24 Dose: 80 mg Documented By: AHMET Benzonatate (Benzonatate 100 Mg Capsule) 100 mg PO TID PRN PRN Reason: Cough Last Admin: 04/19/23 19:24 Dose: 100 mg Documented By: AHMET Ezetimibe (Ezetimibe 10 Mg Tablet) 10 mg PO DAILY [facility] Last Admin: 04/20/23 07:50 Dose: 10 mg Documented By: MICHELE Finasteride (Finasteride 5 Mg Tablet) 5 mg PO DAILY [facility] Last Admin: 04/20/23 07:50 Dose: 5 mg Documented By: MICHELE Hydrochlorothiazide (Hydrochlorothiazide 12.5 Mg Tablet) 12.5 mg PO DAILY [facility]; Protocol Last Admin: 04/20/23 07:50 Dose: 12.5 mg Documented By: MICHELE Vancomycin HCl 1,250 mg/ (Sodium Chloride) 250 mls @ 166.667 mls/hr IV Q12H [facility] Last Infusion: 04/20/23 04:56 Dose: 0 mls/hr Documented By: AHMET Ondansetron HCl (Ondansetron Hcl 4 Mg/2 Ml Vial) 4 mg IVPUSH Q8H PRN PRN Reason: Nausea and Vomiting Pharmacy Consult (Consult Rx Vancomycin Dosing) 1 each MISCELLANE DAILY PRN PRN Reason: Consult order Pharmacy Consult (Consult Rx Vancomycin Dosing) 1 each MISCELLANE DAILY PRN PRN Reason: Consult order Sodium Chloride (0.9 % Sodium Chloride Flush 3 Ml Syringe) 3 ml IVFLUSH QSHIFT [facility] Last Admin: 04/20/23 07:50 Dose: 3 ml Documented By: MICHELE Valsartan (Valsartan 320 Mg Tablet) 320 mg PO DAILY [facility]; Protocol Last Admin: 04/20/23 07:50 Dose: 320 mg Documented By: MICHELE Vancomycin HCl (Vancomycin Hcl 125 Mg Capsule) 125 mg PO QID [facility] Last Admin: 04/20/23 07:50 Dose: 125 mg Documented By: MICHELE Labs 04/20/23 05:39 04/20/23 05:39 Labs: Laboratory Results - last 24 hr 04/19/23 04/20/23 04/20/23 Unknown 05:39 05:39 MCV 88.7 MCH 29.4 MCHC 33.1 RDW 11.0 Plt Count 406 H MPV 8.6 L Immature Gran % (Auto) 0.6 H Neut % (Auto) 71.9 Lymph % (Auto) 14.1 L [place] % (Auto) 11.2 H Eos % (Auto) 1.8 Baso % (Auto) 0.4 Lymph # (Auto) 1.8 [place] # (Auto) 1.4 H Eos # (Auto) 0.2 Baso # (Auto) 0.1 Abs Immat Gran (auto) 0.08 H Absolute Neuts (auto) 9.1 H Absolute Nucleated RBC 0.000 Nucleated RBC % (auto) 0.0 PT INR Estim Creat Clear Calc 107.8 Estimated GFR > 60 Total Bilirubin 0.8 Direct Bilirubin 0.5 AST 38 H ALT 59 H Alkaline Phosphatase 112 Total Protein 7.1 Albumin 3.2 L Respiratory Panel Pradhan See Note Adenovirus (Rapid PCR) Not Detected B.pert (TEM-PCR) Not Detected B.parapertussis DNA PCR Not Detected C. pneumoniae DNA (PCR) Not Detected Coronavirus OC43 (PCR) Not Detected Coronavirus HKU1 (PCR) Not Detected Coronavirus 229E (PCR) Not Detected Coronavirus NL63 (PCR) Not Detected Human Metapneumovir PCR Not Detected Influenza A (RT-PCR) Not Detected Influenza B (RT-PCR) Not Detected M. pneumoniae (PCR) Not Detected Parainfluenza 1 (PCR) Not Detected Parainfluenza 2 (PCR) Not Detected Parainfluenza 3 (PCR) Not Detected Parainfluenza 4 (PCR) Not Detected RSV (PCR) Not Detected Entero/Rhino (PCR) Not Detected SARS-CoV-2 RNA (RT-PCR) Not Detected 04/20/23 05:39 MCV MCH MCHC RDW Plt Count MPV Immature Gran % (Auto) Neut % (Auto) Lymph % (Auto) [place] % (Auto) Eos % (Auto) Baso % (Auto) Lymph # (Auto) [place] # (Auto) Eos # (Auto) Baso # (Auto) Abs Immat Gran (auto) Absolute Neuts (auto) Absolute Nucleated RBC Nucleated RBC % (auto) PT 17.3 H INR 1.4 H Estim Creat Clear Calc Estimated GFR Total Bilirubin Direct Bilirubin AST ALT Alkaline Phosphatase Total Protein Albumin Respiratory Panel Pradhan Adenovirus (Rapid PCR) B.pert (TEM-PCR) B.parapertussis DNA PCR C. pneumoniae DNA (PCR) Coronavirus OC43 (PCR) Coronavirus HKU1 (PCR) Coronavirus 229E (PCR) Coronavirus NL63 (PCR) Human Metapneumovir PCR Influenza A (RT-PCR) Influenza B (RT-PCR) M. pneumoniae (PCR) Parainfluenza 1 (PCR) Parainfluenza 2 (PCR) Parainfluenza 3 (PCR) Parainfluenza 4 (PCR) RSV (PCR) Entero/Rhino (PCR) SARS-CoV-2 RNA (RT-PCR) Microbiology Microbiology Results: Microbiology 04/18/23 16:16 Gram Stain - Final Liver Routine Culture - Preliminary Streptococcus viridans group Anaerobic Culture - Preliminary No growth to date. 04/17/23 06:15 Blood Culture - Preliminary Blood - Arterial No growth after 48 hours. 04/17/23 06:15 Blood Culture - Preliminary Blood - Arterial No growth after 48 hours. Assessment and Plan (1) Abscess of liver: Status: Acute (2) C. difficile colitis: Status: Acute Plan A 62 years old male with PMH of C.diff, HLD, BPH, HTN, GERD, Crohn's disease who presents to the hospital with RUQ pain and fever. Sepsis on presentation 2/2 liver abscess Pending liver bx cultures Continue IV Vancomycin Liver biopsy results pending ID rec starting Vancomycin pending final cultures To repeat CT scan and reassess the abscess follow Vancomycin trough Liver lesions CT scan showing enlarging in size lesion concerning for abscess with other smaller suspected abscesses GI following Recent C.Diff infection No diarrhea reported Continue Vancomycin PO Q6 HTN continue home med BPH Finasteride HLD Home meds DVT PPx Lovenox PAtient will nee overnight hospital stay for treatment of liver abscess pending final cultures Time Spent With Patient Time: Total time managing care of this patient today ____ minutes. Quality Stroke Does the patient have a stroke diagnosis?: No VTE Prior VTE?: No VTE Risk Level:: Medical - moderate - high VTE Device Contraindication: Treatment Not Indicated VTE Drug Contraindication: N/A - Med Ordered
[2023-04-20] MEDS: Benzonatate 100 MG CAPSULE PO (13:54)
[2023-04-20 14:00] LABS: Vancomycin Random 8.2 mcg/mL (15-20)
--- NOTE | 2023-04-20 14:12 | HE.PHANOTE ---
Vancomycin Dosing Level subtherapeutic at 8.2 today. Will increase dose to vancomycin 1250 Q8H, new expected AUC 507 with a trough of 14.7. level to be drawn 04/21 @ 1300. Mandy Bravo PharmD
[2023-04-20 15:07] VITALS: BP 147/71; PULSE 78; RESP 18; TEMP 37.2; O2SAT 95
[2023-04-20 19:17] VITALS: BP 143/67; PULSE 81; RESP 18; TEMP 36.4; O2SAT 94
[2023-04-20] MEDS: Atorvastatin Calcium 80 MG TABLET PO (20:53)
[2023-04-21 04:00] VITALS: BP 143/71; PULSE 76; RESP 18; TEMP 37; O2SAT 94
[2023-04-21 06:25] LABS: Anion Gap 13 (12-20); Blood Urea Nitrogen 12 mg/dL (9-16); Calcium 9.1 mg/dL (8.4-10.2); Carbon Dioxide 27 mmol/L (22-29); Chloride 101 mmol/L (96-108); Creatinine Clr Calc Pharmacy 110.6; Estimated Glomerular Filt Rate > 60; Glucose Random 132 mg/dL (60-115); Sodium 137 mmol/L (135-145)
[2023-04-21 06:27] LABS: Alanine Aminotransferase 70 U/L (0-40); Albumin Level 3.3 g/dL (3.5-5.0); Alkaline Phosphatase 116 U/L (39-117); Aspartate Amino Transferase 47 U/L (5-37); Bilirubin Direct 0.4 mg/dL (0.0-0.5); Bilirubin Total 0.7 mg/dL (0.0-1.0); C Reactive Protein 8.97 mg/dL (< or = 0.50); Total Protein 7.3 g/dL (6.5-8.0)
[2023-04-21] MEDS: vancomycin HCL 1,250 MG in 0.9 % Sodium Chloride 250 ML 166.67 MG IV ×2 (06:29→15:14)
[2023-04-21 07:05] LABS: Hematocrit 35.2 % (42.0-52.0); Hemoglobin 11.4 g/dl (14.0-18.0); Mean Corpuscular HGB Conc 32.4 g/dl (31.0-36.0); Mean Corpuscular Hemoglobin 29.5 pg (27.0-33.0); Platelet Count 441 X10*3/uL (160-400); Red Blood Count 3.87 X10*6/uL (4.60-5.80); White Blood Count 12.4 X10*3/uL (4.8-10.8)
[2023-04-21 07:47] VITALS: BP 135/74; PULSE 80; RESP 16; TEMP 36.8; O2SAT 93
[2023-04-21] MEDS: hydroCHLOROthiazide 12.5 MG TABLET PO (07:53)
[2023-04-21] MEDS: vancomycin HCL 125 MG CAPSULE PO ×4 (07:53→21:41)
[2023-04-21] MEDS: Valsartan 320 MG TABLET PO (07:53)
[2023-04-21] MEDS: Finasteride 5 MG TABLET PO (07:53)
[2023-04-21] MEDS: Ezetimibe 10 MG TABLET PO (07:53)
[2023-04-21] MEDS: 0.9 % Sodium Chloride Flush 3 ML SYRINGE IVFLUSH ×2 (07:53→15:17)
[2023-04-21] MEDS: Benzonatate 100 MG CAPSULE PO (08:04)
[2023-04-21] MEDS: iohexoL 350 MG/ML 100 ML INFUS..BTL 85 ML IV (09:42)
[2023-04-21] MEDS: guaiFENesin LA 600 MG TAB.ER.12H PO ×2 (10:08→21:41)
[2023-04-21] MEDS: Omeprazole 20 MG CAPSULE.DR PO ×2 (10:09→16:34)
--- NOTE | 2023-04-21 11:00 | P.PNIM_ITS ---
Subjective Subjective Date of Service: 04/21/23 Interval History: Feels better overall WBCs trending down still reporting mild RUQ pain cultures from liver growing Strep Viridans No fever or sweating overnight Review of Systems Review of Systems: Yes all other systems are reviewed and are negative Physical Exam Vital Signs: Vital Signs: Last Vital Signs Temp 98.3 F 04/21/23 07:47 Pulse 80 04/21/23 07:47 Resp 16 04/21/23 07:47 BP 135/74 04/21/23 07:47 Pulse Ox 93 04/21/23 07:47 O2 Del Method Room Air 04/21/23 07:47 BMI result Body Mass Index 34.6 Const: Other: Constitutional : Awake, interactive, not in distress Neck : Normal inspection, Supple Cardiovascular : RRR, no JVP, pansystolic murmur, no lower extremity edema Respiratory : good bilateral air entry, no crackles, wheezes or rhonchi Gastrointestinal: soft, lax, Normal bowel sounds, RUQ tenderness Skin : Warm, Dry Neurological : Alert & oriented x3, No focal deficit Objective Data Active Medications Acetaminophen (Acetaminophen 325 Mg Tablet) 650 mg PO Q6H PRN PRN Reason: Pain, Mild (Pain Scale 1-3) Last Admin: 04/20/23 16:53 Dose: 650 mg Documented By: MICHELE Atorvastatin Calcium (Atorvastatin Calcium 80 Mg Tablet) 80 mg PO BEDTIME [facility] Last Admin: 04/20/23 20:53 Dose: 80 mg Documented By: SHITAL Benzonatate (Benzonatate 100 Mg Capsule) 100 mg PO TID PRN PRN Reason: Cough Last Admin: 04/21/23 08:04 Dose: 100 mg Documented By: MICHELE Ezetimibe (Ezetimibe 10 Mg Tablet) 10 mg PO DAILY [facility] Last Admin: 04/21/23 07:53 Dose: 10 mg Documented By: MICHELE Finasteride (Finasteride 5 Mg Tablet) 5 mg PO DAILY [facility] Last Admin: 04/21/23 07:53 Dose: 5 mg Documented By: MICHELE Guaifenesin (Guaifenesin La 600 Mg Tab.Er.12h) 600 mg PO BID [facility] Last Admin: 04/21/23 10:08 Dose: 600 mg Documented By: MICHELE Hydrochlorothiazide (Hydrochlorothiazide 12.5 Mg Tablet) 12.5 mg PO DAILY [facility]; Protocol Last Admin: 04/21/23 07:53 Dose: 12.5 mg Documented By: MICHELE Vancomycin HCl 1,250 mg/ (Sodium Chloride) 250 mls @ 166.667 mls/hr IV Q8H [facility] Last Infusion: 04/21/23 08:04 Dose: 0 mls/hr Documented By: MICHELE Omeprazole (Omeprazole 20 Mg Capsule.Dr) 20 mg PO BID@0630,1630 [facility] Last Admin: 04/21/23 10:09 Dose: 20 mg Documented By: MICHELE Ondansetron HCl (Ondansetron Hcl 4 Mg/2 Ml Vial) 4 mg IVPUSH Q8H PRN PRN Reason: Nausea and Vomiting Pharmacy Consult (Consult Rx Vancomycin Dosing) 1 each MISCELLANE DAILY PRN PRN Reason: Consult order Pharmacy Consult (Consult Rx Vancomycin Dosing) 1 each MISCELLANE DAILY PRN PRN Reason: Consult order Sodium Chloride (0.9 % Sodium Chloride Flush 3 Ml Syringe) 3 ml IVFLUSH QSHIFT [facility] Last Admin: 04/21/23 07:53 Dose: 3 ml Documented By: MICHELE Valsartan (Valsartan 320 Mg Tablet) 320 mg PO DAILY [facility]; Protocol Last Admin: 04/21/23 07:53 Dose: 320 mg Documented By: MICHELE Vancomycin HCl (Vancomycin Hcl 125 Mg Capsule) 125 mg PO QID [facility] Last Admin: 04/21/23 07:53 Dose: 125 mg Documented By: MICHELE Labs 04/21/23 05:08 04/21/23 05:08 Labs: Laboratory Results - last 24 hr 04/20/23 04/21/23 04/21/23 13:07 05:08 05:08 MCV 91.0 MCH 29.5 MCHC 32.4 RDW 11.0 Plt Count 441 H MPV 9.0 L Absolute Nucleated RBC 0.000 Nucleated RBC % (auto) 0.0 Anion Gap Estim Creat Clear Calc Estimated GFR Random Glucose Calcium Total Bilirubin 0.7 Direct Bilirubin 0.4 AST 47 H ALT 70 H Alkaline Phosphatase 116 C-Reactive Protein 8.97 H Total Protein 7.3 Albumin 3.3 L Random Vancomycin 8.2 L 04/21/23 05:08 MCV MCH MCHC RDW Plt Count MPV Absolute Nucleated RBC Nucleated RBC % (auto) Anion Gap 13 Estim Creat Clear Calc 110.6 Estimated GFR > 60 Random Glucose 132 H Calcium 9.1 Total Bilirubin Direct Bilirubin AST ALT Alkaline Phosphatase C-Reactive Protein Total Protein Albumin Random Vancomycin Microbiology Microbiology Results: Microbiology 04/18/23 16:16 Gram Stain - Final Liver Routine Culture - Final Streptococcus viridans group Anaerobic Culture - Preliminary Culture in progress. Assessment and Plan (1) C. difficile diarrhea: Status: Acute (2) Crohn's disease: Status: Acute (3) Abscess of liver: Status: Acute (4) Liver lesion: Status: Acute (5) C. difficile colitis: Status: Acute Plan A 62 years old male with PMH of C.diff, HLD, BPH, HTN, GERD, Crohn's disease who presents to the hospital with RUQ pain and fever. Sepsis on presentation 2/2 liver abscess Pending liver bx cultures Continue IV Vancomycin Liver biopsy results pending ID rec , Vancomycin pending final cultures To repeat CT scan and reassess the abscess today follow Vancomycin trough Liver lesions CT scan showing enlarging in size lesion concerning for abscess with other smaller suspected abscesses GI following Recent C.Diff infection No diarrhea reported Continue Vancomycin PO Q6 HTN continue home med BPH Finasteride HLD Home meds DVT PPx Lovenox PAtient will nee overnight hospital stay for treatment of liver abscess pending final cultures Time Spent With Patient Time: Total time managing care of this patient today ____ minutes. Quality Stroke Does the patient have a stroke diagnosis?: No VTE Prior VTE?: No VTE Risk Level:: Medical - moderate - high VTE Device Contraindication: Treatment Not Indicated VTE Drug Contraindication: N/A - Med Ordered
[2023-04-21 13:45] LABS: Vancomycin Trough 16.5 mcg/mL (10.0-20.0)
--- NOTE | 2023-04-21 13:51 | HE.PHANOTE ---
RE: VANCO DOSING Pt therapeutic today at 16.5 after dose change yesterday. Will continue on current regimen. SCr stable at 0.77. Continue daily renal monitoring and obtain another trough 04/22 @1300 to ensure safety and efficacy.
[2023-04-21 15:15] VITALS: BP 137/75; PULSE 85; RESP 16; TEMP 36.8; O2SAT 93
[2023-04-21] MEDS: cefTRIAXone sodium 2 GM in 0.9 % Sodium Chloride 50 ML IV (15:56)
[2023-04-21] MEDS: Acetaminophen 325 MG TABLET 650 MG PO (17:40)
[2023-04-21] MEDS: metroNIDAZOLE 500 MG TABLET PO (17:41)
[2023-04-21 19:17] VITALS: BP 136/64; PULSE 80; RESP 18; TEMP 36.3; O2SAT 96
[2023-04-21] MEDS: Atorvastatin Calcium 80 MG TABLET PO (21:41)
[2023-04-22] MEDS: metroNIDAZOLE 500 MG TABLET PO ×3 (00:02→15:02)
[2023-04-22 01:15] VITALS: BP 118/60; PULSE 70; RESP 18; TEMP 36.3; O2SAT 96
[2023-04-22] MEDS: Omeprazole 20 MG CAPSULE.DR PO ×2 (05:42→15:02)
[2023-04-22 07:10] LABS: Hematocrit 34.5 % (42.0-52.0); Hemoglobin 11.2 g/dl (14.0-18.0); INTERNATIONAL NORM RATIO 1.4 (0.9-1.1); Mean Corpuscular HGB Conc 32.5 g/dl (31.0-36.0); Mean Corpuscular Hemoglobin 29.1 pg (27.0-33.0); Mean Corpuscular Volume 89.6 fL (80.0-98.0); Mean Platelet Volume 9.1 fL (9.4-12.4); Platelet Count 436 X10*3/uL (160-400); Prothrombin Time 16.7 SEC (11.1-13.3); Red Blood Count 3.85 X10*6/uL (4.60-5.80); Red Cell Distribution Width 11.1 % (11.0-16.0); White Blood Count 11.1 X10*3/uL (4.8-10.8)
[2023-04-22 07:28] LABS: Anion Gap 14 (12-20); Blood Urea Nitrogen 11 mg/dL (9-16); Carbon Dioxide 27 mmol/L (22-29); Chloride 102 mmol/L (96-108); Creatinine Clr Calc Pharmacy 109.2; Estimated Glomerular Filt Rate > 60; Glucose Random 123 mg/dL (60-115); Potassium 3.9 mmol/L (3.3-5.1); Sodium 139 mmol/L (135-145)
[2023-04-22 07:59] VITALS: BP 141/78; PULSE 84; RESP 18; TEMP 36.1; O2SAT 94
[2023-04-22] MEDS: Ezetimibe 10 MG TABLET PO (08:08)
[2023-04-22] MEDS: vancomycin HCL 125 MG CAPSULE PO ×2 (08:08→12:05)
[2023-04-22] MEDS: Valsartan 320 MG TABLET PO (08:08)
[2023-04-22] MEDS: hydroCHLOROthiazide 12.5 MG TABLET PO (08:09)
[2023-04-22] MEDS: Finasteride 5 MG TABLET PO (08:09)
[2023-04-22] MEDS: guaiFENesin LA 600 MG TAB.ER.12H PO (08:09)
--- NOTE | 2023-04-22 10:44 | MHC.CM.PN ---
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
--- NOTE | 2023-04-22 11:57 | HO.PICC ---
[facility] Diagnosis: LIVER ABSCESS/SEPSIS Indication: ALF ANTIBX Pertinent Labs: REVIEWED Technique: Following informed consent including risks, benefits and alternatives and using sterile technique including cap and mask, sterile gown, glove and drape, the LEFT arm was prepped and draped in the usual sterile fashion of full barrier technique with [facility]. Following completion of [place] Protocol the skin and soft tissues were anesthetized with 1% Lidocaine plain. Using ultrasound guidance, LEFT BASILIC vein access was obtained TWICE BY OPHELIA KUO RN BUT UNABLE TO PASS GUIDEWIRE. DR TRINH ACCESSED THE LEFT BASILIC VEIN AND WAS ABLE TO PASS GUIDEWIRE. Over an 0.018 wire through peel-away sheath, a 4FR SINGLE LUMEN PASV PICC line was positioned. Catheter length is 49CM internal length, OCM external length, for a total trimmed length of 49CM. The procedure was performed in 272. Tip verification was performed by Jeovanny Linn with Sherlock 3CG. Tip located in SVC. Ultrasound was used to document vein patency and for needle entry. A formal ultrasound picture and cardiac rhythm strip was recorded. [facility] has released the line for use and it is currently dressed with a StatLock, Tegaderm, and CHG disc. Verification has been performed for blood return and line patency. Arm Circumference: 31.5 CM Equipment: 1Mind POWERPICC SOLO Catheter Type: 4FR SINGLE LUMEN PASV PICC Lot #: [id number]
[2023-04-22] MEDS: cefTRIAXone sodium 2 GM in 0.9 % Sodium Chloride 50 ML IV (15:02)
[2023-04-22] MEDS: 0.9 % Sodium Chloride Flush 3 ML SYRINGE IVFLUSH (15:02)
--- NOTE | 2023-04-22 15:04 | W.MHC.F2F ---
Service Date Service Date: 04/22/23 Encounter Date of encounter: 04/22/23 Reasons for Services Signs and symptoms assessed: Liver abscess on IV antibiotics Reason for penitentiary: administration of IV, SQ, or IM injection, central line care and teach disease management Homebound: Leaving the home is medically contraindicated at this time without the asist of a device and/or another person due th the listed conditions above and below. Reason homebound: other (Needs IV antibiotics ) Certification: Based on the above findings, I certify that this patient is confined to the home and needs intermittent penitentiary care, physical therapy and/or speech therapy, or continues to need occupational therapy. The patient is under my care, and I have initiated the establishment of the plan of care. The patient will be followed by a physician who will periodically review the plan of care. Time Spent With Patient Time: Total time managing care of this patient today ____ minutes.
--- NOTE | 2023-04-22 15:05 | P.DS_ITS ---
DS: Providers Provider Date of Service: 04/22/23 Date of admission: 04/17/23 09:33 Primary care physician: Emy Otto CNP Consults: 04/17/23 09:33 Consult to Gastroenterology Routine Consulting Provider: John Evans Reason for consultation: Enlarging Liver lesion(Abscess?), Fever, for eval and rec. Consult to Infectious Diseases Routine Consulting Provider: [facility] Infectious Disease Reason for consultation: Liver abscess DS: Diagnosis Discharge Diagnosis (1) C. difficile diarrhea: Status: Acute (2) Crohn's disease: Status: Acute (3) Abscess of liver: Status: Acute (4) Liver lesion: Status: Acute (5) C. difficile colitis: Status: Acute DS: Summary Hospital Course Hospital Course: Admission note HPI A 62 years old male with PMH of C.diff, HLD, BPH, HTN, GERD, Crohn's disease who presents to the hospital with RUQ pain and fever. The patient reports that since his discharge from the hospital on 04/09 he has been having low grade fevers on daily basis w sweating and feeling weak with associate cough sometimes. Denies any dyspnea, SOB, palpitations, chest pain, nausea, vomiting, diarrhea or urinary symptoms. Liver biopsy showed Pleosis. Cultures remained negative from prev admission. In ED found to be febrile with elevated WBCs. CT scan showed mild increase in size of liver lesion. Admitted for further evaluation and management. Hospital course The patient was admitted for evaluation of Sepsis secondary to liver abscess as CT scan showed. Treated primarly with IV Vancomycin. Liver biopsy was done with cultures turning positive for Strep Viridans. Evaluated by ID and GI who recommended 6 weeks of IV Ceftriaxone, 2 weeks of Flagyl and to finish 10 days of Vancomycin QID before changing it to BID until he finishes the Ceftriaxone course. Repeated CT showed similar findings with no worsening of the lesions. He will be followed as outpatient with dr Evans. Continue IV antibiotics for the next 6 weeks Flagyl for 2 weeks Oral Vancomycin 4 times a day for the next 10 days then cut down to 2 times a day for prophylaxis To follow up with dr Evans from GI as outpatient Come back to the hospital for any fever, abdominal pain or recurrent diarrhea Time Spent with Patient Time attestation: Total time managing care of this patient today ____ minutes. Discharge coordination time: Greater than 30 minutes Quality: Safe Use of Opioids Does Pt have an Active Cancer Diagnosis on the Problem List?: No Quality: Stroke Does the patient have a stroke diagnosis?: No Physical Exam Vital Signs: Vital Signs: Last Vital Signs Temp 96.9 F 04/22/23 07:59 Pulse 84 04/22/23 07:59 Resp 18 04/22/23 07:59 BP 141/78 H 04/22/23 07:59 Pulse Ox 94 04/22/23 07:59 O2 Del Method Room Air 04/22/23 07:59 BMI result Body Mass Index 34.6 Const: Other: Constitutional : Awake, interactive, not in distress Neck : Normal inspection, Supple Cardiovascular : RRR, no JVP, pansystolic murmur, no lower extremity edema Respiratory : good bilateral air entry, no crackles, wheezes or rhonchi Gastrointestinal: soft, lax, Normal bowel sounds, mild RUQ tenderness with deep palpation Skin : Warm, Dry Neurological : Alert & oriented x3, No focal deficit DS: Data Data Completed and Pending Completed studies during hospitalization [Text1]: Procedures Drainage of Left Lobe Liver, Percutaneous Approach, Diagnostic (04/08/23) Excision of Left Lobe Liver, Percutaneous Approach, Diagnostic (04/08/23) Labs on day of discharge: Laboratory Results - last 24 hr 04/22/23 04/22/23 04/22/23 05:36 05:36 05:36 WBC 11.1 H RBC 3.85 L Hgb 11.2 L Hct 34.5 L MCV 89.6 MCH 29.1 MCHC 32.5 RDW 11.1 Plt Count 436 H MPV 9.1 L Absolute Nucleated RBC 0.000 Nucleated RBC % (auto) 0.0 PT 16.7 H INR 1.4 H Sodium 139 Potassium 3.9 Chloride 102 Carbon Dioxide 27 Anion Gap 14 BUN 11 Creatinine 0.78 Estim Creat Clear Calc 109.2 Estimated GFR > 60 Random Glucose 123 H Calcium 9.0 Preliminary micro results at discharge 04/18/23 16:16 Fungal Identification - Preliminary Liver No growth to date. 04/18/23 16:16 Anaerobic Culture - Preliminary Liver Culture in progress. Imaging CT scan - abdomen: Radiologist's impression: ITS Impressions Chest X-Ray 04/17/23 01:50 IMPRESSION: Low lung volumes without focal consolidation. Enlarged cardiac silhouette. Abdomen/Pelvis CT 04/17/23 02:15 IMPRESSION: 1. Heterogeneous mildly hypoattenuating lesion in the left hepatic lobe is increased in size compared to 04/08/2023, now approximately 3 cm, and is suspicious for abscess. 2. Multiple additional scattered hypoattenuating foci throughout the liver appear overall similar to 04/08/2023. These are indeterminate, and the possibility of at least one of these representing additional abscesses cannot be excluded. Abdomen/Pelvis CT 04/21/23 09:42 IMPRESSION: - Redemonstration of multiple hypodense lesions in the liver both right and left lobe. Some of which are more hypodense on current exam suggesting liquefication of their matrix, the one in the left lobe was recently biopsied/drained on 04/18/2023, otherwise overall they have not significantly changed in size and number. The largest in the left lobe roughly 3 x 2.1 cm, surrounding heterogeneity might be post biopsy scarring. - Diverticulosis without evidence of acute diverticulitis. Discharge Plan Discharge Anticipated Discharge Date/Time: 04/19/23 12:45 Patient Disposition: Home Health Service Discharge Diagnosis: Fever Liver abscess Referrals: [facility] [Other] (Medication and supplies will be delivered this evening. [facility] nurse will contact you regarding home visits ) Emy Otto CNP [Primary Care Provider] - 1 Week Discharge Medications: New vancomycin 125 mg Capsule 125 mg PO BID Qty: 78 0RF Rx Instructions: After finishing the QID scheduled Vancomycin metronidazole 500 mg Tablet 500 mg PO Q8H Qty: 39 0RF ceftriaxone 2 gram Recon Soln 2 g IV Q24H Qty: 46 0RF Continued atorvastatin 80 mg tablet 80 mg PO BEDTIME meloxicam 15 mg tablet 15 mg PO DAILY PRN (Reason: knee pain) pantoprazole 40 mg tablet,delayed release (DR/EC) 40 mg PO DAILY@0630 valsartan 320 mg tablet 320 mg PO DAILY finasteride 5 mg tablet 5 mg PO DAILY ezetimibe 10 mg tablet 10 mg PO DAILY hydrochlorothiazide 12.5 mg tablet 12.5 mg PO DAILY benzonatate 100 mg Capsule 100 mg PO TID PRN (Reason: Cough) Qty: 12 0RF vancomycin 125 mg capsule 125 mg PO QID Qty: 40 0RF Discharge Orders: Discharge Order (Routine); Ordered 04/22/23 Ordered By: Hunter Nelson Diet: Advance to usual diet Activity on Discharge: As tolerated Stand Alone Forms: Patient Portal Discharge page, Work/School Release Care Plan Goals: Read below Health Concerns: Read below Plan of Treatment: Read below Assessment: You were evaluated for fever and feeling unwell. Abdominal images were consistent with multiple small liver lesions. Biopsy were done to the largest showing an evidence of infection with bacteria called Streptococcus viridans. Evaluated by infectious disease specialist and Forming Department Supervisor who suggested IV antibiotics treatment. Your symptoms improved and repeated images showed stable disease. Continue IV antibiotics for the next 6 weeks Flagyl for 2 weeks Oral Vancomycin 4 times a day for the next 10 days then cut down to 2 times a day for prophylaxis To follow up with dr Evans from GI as outpatient Come back to the hospital for any fever, abdominal pain or recurrent diarrhea
[2023-04-22 15:22] VITALS: BP 128/58; PULSE 93; RESP 18; TEMP 36.4; O2SAT 94
== END 2023-04-22 15:39 | disposition home health service (06) | DRG 720 ==
LOC: HO.ED 04-17 06:35 → HO.EDOVER 04-17 09:47 → HO.S3 04-17 14:01
PROVIDERS: Internal Medicine; Radiology Vascular & Interventional Radiology; Admitting Provider Student in an Organized Health Care Education/Training Program; Emergency Provider Emergency Medicine; PCP Nurse Practitioner Primary Care; Visit Provider Student in an Organized Health Care Education/Training Program
PROC: 02HV33Z Insertion of Infusion Device into Superior Vena Cava, Percutaneous Approach (ICD-10-PCS; principal; 2023-04-22 09:00)
DX: A41.9 Sepsis, unspecified organism (principal); K75.0 Abscess of liver; K76.4 Peliosis hepatis; A04.72 Enterocolitis due to Clostridium difficile, not specified as recurrent; K50.90 Crohn's disease, unspecified, without complications; E78.5 Hyperlipidemia, unspecified; N40.0 Benign prostatic hyperplasia without lower urinary tract symptoms; I10 Essential (primary) hypertension; Z20.822 Contact with and (suspected) exposure to COVID-19; Z79.899 Other long term (current) drug therapy
CPT/HCPCS: 10009; 36415; 36573; 49180; 71046; 74177; 77012; 80048; 80076; 80202; 81001; 82565; 82947; 83605; 83690; 85025; 85027; 85610; 85652; 86140; 87040; 87070; 87073; 87102; 87116; 87205; 87206; 87633; 99152; 99285; C1751; J0696; J1650; J2543; J3370; J3371; J3430; Q9967

== ENCOUNTER 2023-04-17 09:33 | Outpatient (BNV) | payer OTHER, SELFPAY | END 2023-04-18 15:52 | PROVIDERS: Admitting Provider Student in an Organized Health Care Education/Training Program; Emergency Provider Emergency Medicine; PCP Nurse Practitioner Primary Care; Visit Provider Radiology Vascular & Interventional Radiology | DX: K75.0 Abscess of liver (principal) | CPT/HCPCS: 10009 ==

== ENCOUNTER → 2023-04-17 09:33 | Outpatient (BNV) | payer OTHER, SELFPAY | PROVIDERS: Admitting Provider Student in an Organized Health Care Education/Training Program; Emergency Provider Emergency Medicine; PCP Nurse Practitioner Primary Care; Visit Provider Student in an Organized Health Care Education/Training Program | DX: R50.9 Fever, unspecified (principal); A04.72 Enterocolitis due to Clostridium difficile, not specified as recurrent | CPT/HCPCS: 99223; 99232; 99233; 99239; G0180 ==

== ENCOUNTER → 2023-04-17 09:33 | Outpatient (BNV) | payer OTHER, SELFPAY | PROVIDERS: Admitting Provider Student in an Organized Health Care Education/Training Program; Emergency Provider Emergency Medicine; PCP Nurse Practitioner Primary Care; Visit Provider Internal Medicine | DX: K75.0 Abscess of liver (principal); A04.72 Enterocolitis due to Clostridium difficile, not specified as recurrent; R50.9 Fever, unspecified | CPT/HCPCS: 99222 ==

== ENCOUNTER 2023-05-22 13:11 | Outpatient (AMB) | payer OTHER, SELFPAY ==
--- NOTE | 2023-05-22 13:30 | A.OFFVIS_ITS ---
Intake Vital Signs 05/22/23 13:41 Height 5 ft 7 in Weight 220 lb BMI 34.5 BP 144/70 H Blood Pressure Location Rt brachial Position Sitting Pulse 83 Pulse Source Pulse Oximeter Pulse Oximetry (%) 98 Intake Visit Reasons: Ref.[facility],Liver Abscess Allergies Sulfa (Sulfonamide Antibiotics) Allergy (Intermediate, Verified 04/18/23 13:47) Rash PFSH Medical History Crohn's disease Liver lesion C. difficile colitis Endocarditis Mitral valve prolapse Diabetes Hypertension Crohn's disease Surgical History History of liver biopsy H/O colonoscopy History of hernia surgery Social History Household Members: Spouse Housing: House Do you presently have visiting nurse or other home services: No Alcohol intake: current Alcohol intake frequency: a few times a month Patient Tobacco Use Status: Never used Tobacco service: No Physical Exam Vital Signs: Last Vital Signs Pulse 83 05/22/23 13:41 BP 144/70 H 05/22/23 13:41 Pulse Ox 98 05/22/23 13:41 BMI result Body Mass Index 34.5 Coding Level of Care Code Est Pt Level 3 (77059)
--- NOTE | 2023-05-22 13:30 | A.OFFVIS_ITS ---
Intake Vital Signs 05/22/23 13:41 Height 5 ft 7 in Weight 220 lb BMI 34.5 BP 144/70 H Blood Pressure Location Rt brachial Position Sitting Pulse 83 Pulse Source Pulse Oximeter Pulse Oximetry (%) 98 Intake Visit Reasons: Ref.[facility],Liver Abscess Allergies Sulfa (Sulfonamide Antibiotics) Allergy (Intermediate, Verified 04/18/23 13:47) Rash HPI Ref.[facility],Liver Abscess HPI Details He is feeling well He has been taking Ceftriaxone sin 04/18 and has strep viridans liver abscess. He feels well and has no fever or chills. He is getting MRI of pelvis on 05/26 and will be at six weeks medication on 05/30. [facility] Medical History Crohn's disease Liver lesion C. difficile colitis Endocarditis Mitral valve prolapse Diabetes Hypertension Crohn's disease Surgical History History of liver biopsy H/O colonoscopy History of hernia surgery Social History Household Members: Spouse Housing: House Do you presently have visiting nurse or other home services: No Alcohol intake: current Alcohol intake frequency: a few times a month Patient Tobacco Use Status: Never used Tobacco service: No Review of Systems Const All systems reviewed & are unremarkable except as noted in HPI and below Physical Exam Vital Signs: Last Vital Signs Pulse 83 05/22/23 13:41 BP 144/70 H 05/22/23 13:41 Pulse Ox 98 05/22/23 13:41 BMI result Body Mass Index 34.5 Const General: cooperative Orientation/consciousness: patient oriented x3 HEENT Head: Yes normal to inspection Mouth: Normal oral and palatal mucosa present Eyes General: appearance normal, both eyes and all related structures Pupils: Equal, round and reactive pupils present Resp Effort & Inspection: normal respiratory effort Cardio Rate: regular rate Rhythm: regular rhythm GI Palpation (GI): Soft to palpation and nontender General: Yes no CVA tenderness Back/Spine/Pelvis Back: no CVA tenderness Skin General skin exam: no rashes or lesions noted Neuro General: patient oriented x3 Cranial nerves: Yes CN's II-XII intact bilaterally and Yes Equal, round and reactive pupils present Extrem General: Yes normal to inspection Psych Appearance: grossly normal Assessment & Plan Assessment & Plan (1) Abscess of liver: Comment: He is doing well and is getting MRI pelvis at [facility] on 05/26 He is going to discuss this with Dr Cristina DAMIAN to see if there is any fistula needing repair. He has hematuria with no dysuria or fever and is going to discuss this with Urology. Code(s): K75.0 - Abscess of liver Plan: Continue Ceftriaxone for now. Await final decision to stop antibiotics based on results of testing above. See one month or as needed. He will call us after test. Coding Level of Care Code Est Pt Level 3 (87260) Diagnoses Abscess of liver K75.0
[2023-05-22 13:41] VITALS: BP 144/70; PULSE 83; O2SAT 98; BMI 34.5
== END 2023-05-22 14:56 | disposition home or self-care (01) ==
LOC: HO.HID 13:11
PROVIDERS: PCP Nurse Practitioner Primary Care; Visit Provider Internal Medicine
DX: K75.0 Abscess of liver (principal)
CPT/HCPCS: 99213

== ENCOUNTER → 2023-05-22 13:11 | Outpatient (BNVA) | payer OTHER, SELFPAY | PROVIDERS: PCP Nurse Practitioner Primary Care; Visit Provider Internal Medicine ==

== ENCOUNTER 2023-06-21 13:17 | Outpatient (AMB) | payer OTHER, SELFPAY ==
--- NOTE | 2023-06-21 13:15 | A.OFFVIS_ITS ---
Intake Vital Signs 06/21/23 13:20 Height 5 ft 7 in Weight 222 lb BMI 34.8 BP 143/75 H Blood Pressure Location Rt brachial Position Sitting Pulse 73 Pulse Source Pulse Oximeter Pulse Oximetry (%) 97 Intake Visit Reasons: follow up antibotics Allergies Sulfa (Sulfonamide Antibiotics) Allergy (Intermediate, Verified 06/21/23 13:27) Rash HPI follow up antibotics HPI Details He has been doing well. He has been taking Ceftriaxone since 04/18. I had last seen him 05/22. He has had MRI pelvis showing no abscess and fistula with granulomatous area. He has no fever or chills or abdominal pain and has been tolerating Ceftriaxone. [facility] Medical History Crohn's disease Liver lesion C. difficile colitis Endocarditis Mitral valve prolapse Diabetes Hypertension Crohn's disease Surgical History History of liver biopsy H/O colonoscopy History of hernia surgery Social History Household Members: Spouse Housing: House Do you presently have visiting nurse or other home services: No Alcohol intake: current Alcohol intake frequency: a few times a month Patient Tobacco Use Status: Never used Tobacco service: No Review of Systems Const All systems reviewed & are unremarkable except as noted in HPI and below Physical Exam Vital Signs: Last Vital Signs Pulse 73 06/21/23 13:20 BP 143/75 H 06/21/23 13:20 Pulse Ox 97 06/21/23 13:20 BMI result Body Mass Index 34.8 Const General: cooperative Orientation/consciousness: patient oriented x3 HEENT Head: Yes normal to inspection Mouth: Normal oral and palatal mucosa present Eyes General: appearance normal, both eyes and all related structures Pupils: Equal, round and reactive pupils present Resp Effort & Inspection: normal respiratory effort Cardio Rate: regular rate Rhythm: regular rhythm GI Palpation (GI): Soft to palpation and nontender General: Yes no CVA tenderness Back/Spine/Pelvis Back: no CVA tenderness Skin General skin exam: no rashes or lesions noted Neuro General: patient oriented x3 Cranial nerves: Yes CN's II-XII intact bilaterally and Yes Equal, round and reactive pupils present Extrem General: Yes normal to inspection Psych Appearance: grossly normal Assessment & Plan Assessment & Plan (1) Abscess of liver: Comment: He has no complaints and is doing well with no obvious signs on exam or scan of ongoing infection Code(s): K75.0 - Abscess of liver Plan: Stop IV Ceftriaxone. Follow Dr Evans re:fistula. I told him can recur and follow prn need. Orders: Orders IR cvc remove any age Today K75.0 - Abscess of liver Coding Level of Care Code Est Pt Level 3 (28241) Diagnoses Abscess of liver K75.0
[2023-06-21 13:20] VITALS: BP 143/75; PULSE 73; O2SAT 97; BMI 34.8
== END 2023-06-21 14:28 | disposition home or self-care (01) ==
PROVIDERS: PCP Nurse Practitioner Primary Care; Visit Provider Internal Medicine
DX: K75.0 Abscess of liver (principal)
CPT/HCPCS: 99213

== ENCOUNTER → 2023-06-21 13:17 | Outpatient (BNVA) | payer OTHER, SELFPAY | PROVIDERS: PCP Nurse Practitioner Primary Care; Visit Provider Internal Medicine ==